=== PATIENT | female | born 1945 | race Caucasian/White ===

== ENCOUNTER → 2017-12-19 07:57 | Outpatient (CLI) | payer MEDICARE, OTHER, SELFPAY ==
--- NOTE | 2017-12-19 08:07 | XR_ITS ---
XR hand RT min 3V HISTORY: ITS.REASON: RT HAND PAIN ORDERING PHYSICIAN: Chau Durham MD PATIENT AGE: 72 years COMPARISON: None FINDINGS: The hand has an unremarkable appearance. No acute fracture or dislocation is evident. There is a fracture involving the distal aspect of the scaphoid with mild impaction and anterior displacement of the distal fracture fragment. Wrist films may better delineate. The fracture is transverse in nature. IMPRESSION: 1. Unremarkable right hand. 2. Mildly displaced and impacted fracture of the distal aspect of the scaphoid
== END ==
PROVIDERS: PCP Internal Medicine Adolescent Medicine; Visit Provider Internal Medicine Adolescent Medicine
DX: M79.641 Pain in right hand (principal)
CPT/HCPCS: 73130

== ENCOUNTER → 2017-12-24 08:33 | Outpatient (CLI) | payer MEDICARE, OTHER, SELFPAY ==
--- NOTE | 2017-12-24 08:37 | XR_ITS ---
XR wrist RT w scaphoid HISTORY ITS.REASON: right wrist pain ORDERING PHYSICIAN: Kuldeep Garcia MD PATIENT AGE: 72 years Comparison: 12/19/2017 FINDINGS: Mildly displaced fracture involves the distal aspect of the scaphoid. On the oblique view the distal aspect of the scaphoid is displaced anterior laterally by approximately 2 mm. There is mild impaction of the fracture fragments. The fracture has a transverse orientation. Chondrocalcinosis involves the triangular fibrocartilage. There is also mild prominence of the scapholunate space which may indicate ligamentous disruption. IMPRESSION: 1. Mildly displaced and slightly impacted fracture of the distal scaphoid. 2. Possible scapholunate ligament injury
== END ==
PROVIDERS: PCP Internal Medicine Adolescent Medicine; Visit Provider Orthopaedic Surgery
DX: M25.531 Pain in right wrist (principal)
CPT/HCPCS: 73110

== ENCOUNTER → 2018-01-27 08:35 | Outpatient (CLI) | payer MEDICARE, OTHER, SELFPAY ==
--- NOTE | 2018-01-27 08:38 | XR_ITS ---
XR wrist RT w scaphoid HISTORY follow-up scaphoid fracture ITS.REASON: scaphoid fracture ORDERING PHYSICIAN: Kuldeep Garcia MD PATIENT AGE: 72 years Comparison: 12/24/17 FINDINGS: Displaced fracture once again noted involving the distal aspect of the scaphoid. This is comminuted. The lateral fracture fragment is displaced laterally x 3 mm. Fracture fragments appear slightly more dense on today's exam. Developing avascular necrosis is a consideration. Continued follow-up recommended. Typically, avascular necrosis occurs in the proximal pole with scaphoid fractures. The scapholunate joint remains widened. There is chondrocalcinosis of the triangular fibrocartilage. IMPRESSION: 1. Comminuted scaphoid fracture once again noted with displacement of the distal fracture fragments not significant changed. Slight increased density of the distal fracture fragments of uncertain clinical significance. Cannot exclude developing avascular necrosis. 2. Widened scapholunate joint space as before
== END ==
PROVIDERS: PCP Internal Medicine Adolescent Medicine; Visit Provider Orthopaedic Surgery
DX: S62.009D Unspecified fracture of navicular [scaphoid] bone of unspecified wrist, subsequent encounter for fracture with routine healing (principal)
CPT/HCPCS: 73110

== ENCOUNTER → 2018-07-23 09:54 | Outpatient (CLI) | payer MEDICARE, OTHER, SELFPAY ==
--- NOTE | 2018-07-23 09:57 | XR_ITS ---
XR DEXA axial skeleton HISTORY: ITS.REASON: POST MENOPAUSAL ORDERING PHYSICIAN: Chau Durham MD PATIENT AGE: 73 years COMPARISON: None FINDINGS: The BMD measured at the Left femoral neck is 0.709 g/cm squared with a T score of -2.4. This is considered Osteopenic according to the World Health Organization criteria. Fracture risk is Moderate. Treatment is advised. IMPRESSION: Osteopenia with moderate fracture risk. Treatment is advised. Suggest follow-up exam July 2020
--- NOTE | 2018-07-23 09:57 | MM_ITS ---
MM Dig screening mamm BI w/CAD CAD Screening COMPARISON: Digital mammograms with CAD 02/18/2017 and 08/08/2015 INDICATION: There is no personal or family history of breast cancer TECHNIQUE: Standard CC and MLO images were obtained. R2 CAD reviewed. FINDINGS: The breasts are composed primarily of fat with minimal scattered fibroglandular densities in each breast. There is a stable asymmetric nodular density upper outer quadrant left breast and similar and stable smaller benign-appearing nodular density just deep to the nipple right breast. There is no suspicious lesion in either breast and there are no suspicious microcalcifications. There is a benign-appearing calcification left breast. IMPRESSION: Stable exam with no suspicious lesion seen BI-RADS Category: 2 Benign Finding(s) RECOMMENDED FOLLOW-UP: 1YR - 1 YEAR FOLLOW-UP (A letter has been sent to the patient regarding results of the study.)
== END ==
PROVIDERS: PCP Internal Medicine Adolescent Medicine; Visit Provider Internal Medicine Adolescent Medicine
DX: Z12.31 Encounter for screening mammogram for malignant neoplasm of breast (principal); Z13.820 Encounter for screening for osteoporosis; Z78.0 Asymptomatic menopausal state
CPT/HCPCS: 77067; 77080

== ENCOUNTER → 2018-09-03 10:36 | Outpatient (CLI) | payer MEDICARE, OTHER, SELFPAY ==
--- NOTE | 2018-09-03 10:46 | XR_ITS ---
XR chest 2V HISTORY: ITS.REASON: COUGH ORDERING PHYSICIAN: Kuldeep Izquierdo MD PATIENT AGE: 73 years COMPARISON: 01/16/2017 FINDINGS: The cardiomediastinal silhouette and pulmonary vascularity are within normal limits. Coronary artery calcifications are noted There is a 19 mm ill-defined nodular opacity in the left lower lobe similar to the previous exam. A calcified granuloma is also present in the left lower lobe and there are mild fibrotic changes in the left lung base laterally. No lobar consolidation or collapse is evident. No acute bony findings. IMPRESSION: No change with no acute finding No change left lower lobe nodules with atelectatic or from chronic changes left lung base
== END ==
PROVIDERS: PCP Internal Medicine Adolescent Medicine; Visit Provider Internal Medicine Adolescent Medicine
DX: R05 Cough (principal)
CPT/HCPCS: 71046

== ENCOUNTER → 2018-12-01 10:13 | Outpatient (CLI) | payer MEDICARE, OTHER, SELFPAY ==
[2018-12-01 10:34] LABS: Basophils # 0.1 K/mm3 (0-0.2); Basophils % 0.9 % (0.1-2.0); Eosinophils # 0.3 K/mm3 (0.0-0.4); Eosinophils % 4.2 % (0.1-12.0); Hematocrit 42.2 % (37.0-47.0); Lymphocytes # 5.7 K/mm3 (0.7-4.5); Lymphocytes % 93.3 % (10-50); Mean Corpuscular HGB Conc 30.9 g/dL (31.8-35.4); Mean Corpuscular Hemoglobin 31.2 pg (27.0-31.2); Mean Corpuscular Volume 101.1 fl (81-99); Mean Platelet Volume 8.4 fl (7.4-10.4); Monocytes # 0.1 K/mm3 (0.1-1.0); Platelet Count 243 K/mm3 (142-424); Red Blood Count 4.17 M/mm3 (4.20-5.40); Red Cell Distribution Width 13.7 % (11.5-17.5); White Blood Count 6.1 K/mm3 (4.8-10.8)
[2018-12-01 10:36] LABS: Neutrophils % 0.6 % (37.0-80.0)
[2018-12-01 10:38] LABS: MANUAL DIFFERENTIAL MANUAL DIFFERENTIAL (MANUAL DIFF)
[2018-12-01 10:54] LABS: Troponin I < 0.02 ng/ml (0.00-0.06)
[2018-12-01 11:30] LABS: Eosinophils % 3 % (0-3); Lymphocytes % 14 % (10-50); Monocytes % 2 % (2-9); Neutrophils % 79 % (42-76); Platelet Estimate Normal; RBC Morphology Normal; Total Cells Counted 100
[2018-12-01 11:44] LABS: Alanine Aminotransferase 21 U/L (12-78); Albumin Level 4.3 gm/dL (3.4-5.0); Alkaline Phosphatase 91 U/L (46-116); Anion Gap 13.3 mEq/L (5-15); Aspartate Amino Transferase 17 U/L (15-37); Bilirubin,Direct 0.1 mg/dL (0.0-0.2); Bilirubin,Indirect 0.7 mg/dL (0.0-0.9); Bilirubin,Total 0.8 mg/dL (0.2-1.0); Blood Urea Nitrogen 19 mg/dL (7-18); Calcium 9.2 mg/dL (8.5-10.1); Carbon Dioxide 29 mmol/L (21.0-32.0); Chloride 103 mmol/L (98-107); Creatinine,Serum 0.81 mg/dL (0.55-1.02); Estimated Glomerular Filt Rate 70 ml/min (>60); Free T4 (Free Thyroxine) 0.79 ng/dl (0.76-1.46); GFR (African American) 84 ML/MIN (>60); Potassium 4.3 mmoL/L (3.5-5.1); Sodium 141 mmol/L (136-145); Thyroid Stimulating Hormone 7.93 uIU/ml (0.358-3.740); Total Protein,Serum 7.6 gm/dL (6.4-8.2)
[2018-12-01 11:55] LABS: Glucose 111 mg/dL (74-106)
[2018-12-02 14:41] LABS: Folate 16.6 ng/mL (>3.0); Vitamin B12 792 pg/mL (232-1245)
[2018-12-03 12:50] LABS: Peripheral Smear Review Scanned Result
== END ==
PROVIDERS: Visit Provider Nurse Practitioner Family
DX: R06.00 Dyspnea, unspecified (principal); R07.9 Chest pain, unspecified; D64.9 Anemia, unspecified
CPT/HCPCS: 36415; 80048; 80076; 82607; 82746; 84439; 84443; 84484; 85007; 85025; 85060

== ENCOUNTER → 2018-12-08 10:33 | Outpatient (CLI) | payer MEDICARE, OTHER, SELFPAY ==
--- NOTE | 2018-12-08 10:34 | CA_ITS ---
PROCEDURE: 2-D M-mode and color Doppler study INDICATIONS FOR THE TEST: Chest pain+ COPD Heart Murmur Tobacco Smoking Palpitations Fatigue Syncope Edema Hypertension+Diabetes Mellitus Rheumatic Fever SOB MONSALVE+Obesity Hyperlipidemia Family History HD Additional History MVP,BRADYCARDIA PATIENT INFORMATION HEIGHT: 63 WEIGHT:143 GENDER: Female B/P:166/72 2-D/M-MODE INTERPRETATION: 2-D MEASUREMENTS OBSERVED VALUES IN CMS Right Ventricular Dimension (RVDd) 2.8 Interventricular Septum (Thickness)(IVsd) 1.0 Left Ventricular Internal Dimensions(LVIDd) 5.7 Left Ventricular Posterior Wall (Thickness)(LVPWd) 1.0 Aortic Root 2.2 Aortic Cusp Separation 1.8 Left Atrial Dimensions (LAD) 3.9 2D 1. Left Atrium is mildly enlarged, left ventricle is normal size, mild concentric left ventricular hypertrophy, visually estimated ejection fraction of 55% with no regional wall motion abnormality. 2. The right atrium and right ventricle are normal size and contractility. 3. The aortic valve is minimally thickened and calcified. 4. The mitral valve has prolapse of the posterior mitral leaflet. Leaflets are mildly myxomatous. 5. The tricuspid valve is grossly normal. 6. The pulmonic valve is poorly visualized. 7. No significant pericardial effusion noted. DOPPLER INTERROGATION: Doppler interrogation of the aortic, mitral and tricuspid valvular presence of mild aortic, there is mitral regurgitation present, it is difficult to quantify this is likely in severe range, a transesophageal echocardiogram is recommended for further evaluation. Grade 1 diastolic dysfunction seen with tissue Doppler evidence of raised left atrial pressure. CONCLUSION: 1. Mildly enlarged left atrium, normal left ventricular size, mild concentric left ventricular hypertrophy, visually estimated ejection fraction of 55% with no regional wall motion abnormality. Grade 1 diastolic dysfunction seen with tissue Doppler evidence of raised left atrial pressure. 2. 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 3. Mild aortic, and mild tricuspid regurgitation 4. No significant pericardial effusion noted.
--- NOTE | 2018-12-08 10:34 | NM_ITS ---
SPECT MYOCARDIAL PERFUSION SCAN, REST AND STRESS: EXERCISE STRESS: [facility] REVIEW QGS EF AND WALL MOTION EVALUATION: QPS - PERFUSION EVALUATION: HISTORY: Chest pain, SOB, HTN, Family history PROCEDURE: Rest imaging performed after administration of10.27 millicuries Tc MIBI. Dose administered at10:45 a.m., with imaging thereafter. Stress imaging was then performed following6 minutes 10 seconds of exercise stress. The patient achieved a heart [id number] with projected heart rate of127 . Resting BP149/81 with stress 166/80. At maximum exercise stress,30.8 millicuries Tc MIBI administered at12:55 p.m. with [id number] minutes thereafter. FINDINGS: Perfusion Evaluation: The single slice spect images as well as the [facility] bull's-eye data summary were reviewed. Wall Motion and Ejection Fraction Evaluation: Gated SPECT review and analysis used to evaluate these features. There is a 69 % left ventricular ejection fraction. There seems to be good wall motion Uniform myocardial activity at both stress and rest IMPRESSION: No scintigraphic evidence of Lexiscan-induced myocardial ischemia with normal ejection fraction and normal wall motion
--- NOTE | 2018-12-08 10:49 | HMH.ITSHM ---
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 []METOPROLOL AMLODIPINE LEVOTHYROXINE FLUTICASONE DULOXETINE BUSPIRONE
== END ==
PROVIDERS: PCP Internal Medicine Adolescent Medicine; Visit Provider Nurse Practitioner Family
DX: R06.00 Dyspnea, unspecified (principal); R07.9 Chest pain, unspecified; I10 Essential (primary) hypertension; I34.1 Nonrheumatic mitral (valve) prolapse
CPT/HCPCS: 78452; 93017; 93306; A9502

== ENCOUNTER → 2019-01-04 08:40 | Outpatient (CLI) | payer MEDICARE, OTHER, SELFPAY ==
[2019-01-04 11:17] LABS: Alanine Aminotransferase 21 U/L (12-78); Albumin Level 3.6 gm/dL (3.4-5.0); Alkaline Phosphatase 84 U/L (46-116); Aspartate Amino Transferase 17 U/L (15-37); Bilirubin,Direct 0.1 mg/dL (0.0-0.2); Bilirubin,Indirect 0.5 mg/dL (0.0-0.9); Bilirubin,Total 0.6 mg/dL (0.2-1.0); Cholesterol 167 mg/dL (140-200); HDL Cholesterol 83 mg/dL (29-89); LDL Cholesterol 72 mg/dL (0-130); Total Protein,Serum 6.5 gm/dL (6.4-8.2); Triglycerides 58 mg/dL (30-200); VLDL Cholesterol 12 mg/dL (0-40)
== END ==
PROVIDERS: Visit Provider Internal Medicine Cardiovascular Disease
DX: I10 Essential (primary) hypertension (principal); I25.10 Atherosclerotic heart disease of native coronary artery without angina pectoris; I34.0 Nonrheumatic mitral (valve) insufficiency; I34.1 Nonrheumatic mitral (valve) prolapse; K21.9 Gastro-esophageal reflux disease without esophagitis; R00.1 Bradycardia, unspecified; R06.09 Other forms of dyspnea
CPT/HCPCS: 36415; 80061; 80076

== ENCOUNTER → 2019-03-02 11:39 | Outpatient (CLI) | payer MEDICARE, OTHER, SELFPAY | PROVIDERS: PCP Internal Medicine Adolescent Medicine; Visit Provider Nurse Practitioner Family | DX: R55 Syncope and collapse (principal); I25.10 Atherosclerotic heart disease of native coronary artery without angina pectoris; R06.09 Other forms of dyspnea; I34.0 Nonrheumatic mitral (valve) insufficiency | CPT/HCPCS: 93225; 93226 ==

== ENCOUNTER → 2019-04-07 07:05 | Outpatient (CLI) | payer MEDICARE, OTHER, SELFPAY ==
[2019-04-07 14:15] LABS: Basophils % 0.6 % (0.1-2.0); Eosinophils # 0.2 K/mm3 (0.0-0.4); Eosinophils % 4.9 % (0.1-12.0); Hematocrit 37.2 % (37.0-47.0); Hemoglobin 11.8 g/dL (12.2-16.2); Lymphocytes # 3.9 K/mm3 (0.7-4.5); Lymphocytes % 90.8 % (10-50); Mean Corpuscular HGB Conc 31.6 g/dL (31.8-35.4); Mean Corpuscular Hemoglobin 33.3 pg (27.0-31.2); Mean Corpuscular Volume 105.4 fl (81-99); Mean Platelet Volume 9.5 fl (7.4-10.4); Monocytes # 0.1 K/mm3 (0.1-1.0); Monocytes % 3.3 % (1.7-9.3); Platelet Count 183 K/mm3 (142-424); Red Blood Count 3.53 M/mm3 (4.20-5.40); Red Cell Distribution Width 12.9 % (11.5-17.5); White Blood Count 4.3 K/mm3 (4.8-10.8)
[2019-04-07 14:19] LABS: Neutrophils % 0.5 % (37.0-80.0)
[2019-04-07 14:20] LABS: MANUAL DIFFERENTIAL MANUAL DIFFERENTIAL (MANUAL DIFF)
[2019-04-07 14:34] LABS: Alanine Aminotransferase 16 U/L (12-78); Albumin/Globulin Ratio 1.5 (1.1-1.8); Alkaline Phosphatase 81 U/L (46-116); Aspartate Amino Transferase 25 U/L (15-37); Bilirubin,Total 1.1 mg/dL (0.2-1.0); Blood Urea Nitrogen 14 mg/dL (7-18); Calcium 8.9 mg/dL (8.5-10.1); Carbon Dioxide 28 mmol/L (21.0-32.0); Chloride 103 mmol/L (98-107); Chol/HDL Ratio 1.6 (1-3.5); Cholesterol 160 mg/dL (140-200); Creatinine,Serum 0.79 mg/dL (0.55-1.02); Estimated Glomerular Filt Rate 72 ml/min (>60); GFR (African American) 87 ML/MIN (>60); Globulin 2.7 gm/dl (1.3-3.2); Glucose 85 mg/dL (74-106); HDL Cholesterol 103 mg/dL (29-89); LDL Cholesterol 47 mg/dL (0-130); Sodium 141 mmol/L (136-145); Thyroid Stimulating Hormone 6.35 uIU/ml (0.358-3.740); Total Protein,Serum 6.7 gm/dL (6.4-8.2); Triglycerides 48 mg/dL (30-200); VLDL Cholesterol 10 mg/dL (0-40)
[2019-04-07 16:36] LABS: Eosinophils % 2 % (0-3); Lymphocytes % 25 % (10-50); Monocytes % 5 % (2-9); Neutrophils % 62 % (42-76); Total Cells Counted 100
[2019-04-07 16:37] LABS: Platelet Estimate Normal; RBC Morphology Normal
[2019-04-09 06:22] LABS: Vitamin B12 >2000 pg/mL (232-1245); Vitamin D 25 Hydroxy 30.5 ng/mL (30.0-100.0)
== END ==
PROVIDERS: PCP Internal Medicine Adolescent Medicine; Visit Provider Internal Medicine Adolescent Medicine
DX: E53.8 Deficiency of other specified B group vitamins (principal); E78.5 Hyperlipidemia, unspecified; E03.9 Hypothyroidism, unspecified; M85.89 Other specified disorders of bone density and structure, multiple sites
CPT/HCPCS: 36415; 80053; 80061; 82607; 82652; 84443; 85007; 85025

== ENCOUNTER → 2019-05-17 10:50 | Outpatient (CLI) | payer MEDICARE, OTHER, SELFPAY ==
--- NOTE | 2019-05-17 10:57 | US_ITS ---
PROCEDURE: US THYROID CLINICAL INDICATION: THYROID NODULE Thyroid nodule seen on recent vascular study, longstanding thyroid disease COMPARISON: The FINDINGS: Right lobe: 3.8 x 1.3 x 1.2 cm. There is heterogeneous echogenicity. There is a 1 x 1.2 cm solid-appearing nodule which is well-circumscribed with increased echogenicity centrally. This is in the lower pole of the right lobe. This is wider than tall with smooth margins and no internal echogenic foci and is a TR 3 nodule and can be followed since it is less than 2.5 cm. Left lobe: 2.3 x 1.7 x 1 cm. Diffuse heterogeneous echogenicity with no discrete nodule. Isthmus: Unremarkable Additional findings: IMPRESSION: Solid-appearing nodule lower pole right lobe of the thyroid gland, TR 3 nodule mildly suspicious. Recommend six-month follow-up. Dictated by: Francisco Monaco MD 05/17/2019 15:59 Electronically signed by Francisco Monaco MD in [place] 05/17/2019 15:59
[2019-05-17 14:38] LABS: Free Thyroxine Index 2.8 ug/dL (5.93-13.13); T4 (Thyroxine) 6.9 ug/dl (4.7-13.3); Thyroid Stimulating Hormone 0.14 uIU/ml (0.358-3.740); Triiodothryronine (T3) Uptake 41 % (31-39)
[2019-05-18 12:59] LABS: Thyroid Peroxidase Antibodies 303 IU/mL (0-34)
== END ==
PROVIDERS: PCP Internal Medicine Adolescent Medicine; Visit Provider Internal Medicine Adolescent Medicine
DX: E04.1 Nontoxic single thyroid nodule (principal); E03.9 Hypothyroidism, unspecified
CPT/HCPCS: 36415; 76536; 84436; 84443; 84479; 86376

== ENCOUNTER → 2019-05-25 11:30 | Outpatient (POV) | payer MEDICARE, OTHER, SELFPAY ==
[2019-05-25 11:46] VITALS: BP 182/98; PULSE 85; RESP 18; O2SAT 99; BMI 24.7
[2019-05-25 14:26] LABS: Free T4 (Free Thyroxine) 0.87 ng/dl (0.76-1.46); Thyroid Stimulating Hormone 1.96 uIU/ml (0.358-3.740)
--- NOTE | 2019-05-25 15:50 | HMH.PMCON ---
Assessment and Plan (1) Sacroiliitis Current visit: Yes Status: Chronic Category: Medical Code(s): M46.1 - Sacroiliitis, not elsewhere classified - Assessment and plan all Dx Assessment and Plan for all problems:: We will schedule the patient for bilateral SI joint injections. I do believe it would be beneficial for her. Patient is instructed to call the office if she has any issues prior to her next appointment. Dr. Wade has reviewed this note and agrees with this plan of care. This note was dictated using voice recognition software and may contain errors or omissions HPI - Data of Consult Consult date: 05/25/19 Requesting Physician: Fabiola Swan APRN Primary Care Provider: Chau Durham MD - Consult Narrative Reason for consult: Chronic sacroiliitis History of present illness: Ms. Pitt is a 74 year old female who presents today for consultation. Patient was seen about 3-1/2 years ago and received SI joint injections. She is had relief from that significantly until this last few weeks. She rates her pain today a 6 out of 10. Patient is having pain in her low back radiating into her hip sometimes her groin area. Patient has tried anti-inflammatories with success. Patient is wanting bilateral SI joint injections today. I discussed with her that we would not be able to do those today. Patient is continuing a home stretching program. We also briefly discussed an SI joint belt I do believe that would be beneficial for her. CC: Fabiola Swan APRN [facility] History I have reviewed the patient's past medical history: Yes Medical History: Reports:: Atherosclerotic Heart Disease, Coronary Artery Disease, Depression, Gastroesophageal Reflux Disease(GERD), Hypertension Denies:: Diabetes Mellitus Type 1, Diabetes Mellitus Type 2, Internal Pacemaker, Seizures *Have you ever received a pneumonia vaccine?: Yes *Have you received a flu vaccine this season?: Yes Other Medical History: Reports: Hypothyroidism Other Surgeries: Yes: No Previous Surgery, Cardiac Catheterization, Cholecystectomy, , Hysterectomy-Total, Other (Back Sx). No: Pacemaker - *Social History Smoking Status: Never smoker Alcohol Intake: never Alcohol Intake Frequency:: a few times a month Substance Use Type: denies use *Occupational Status:: other Housing: house Household Members: none *Travel in the last 8 weeks: None - Psychiatric History Pschychiatric History:: Reports:: Depression Family Hx:: Coronary Artery Disease, Heart Attack Review of Systems - Review of Systems ROS General: no recent weight change, no fever, no sleep disturbances Respiratory: no cough, no shortness of air, no recurring pulmonary infections Cardiovascular/Peripheral Vascular: No chest pain, No palpitations, no edema, no shortness of breath. Gastrointestinal: no new onset incontinence, normal bowel movements reported Genitourinary: no new onset incontinence Musculoskeletal: SI joint pain Psychiatric: normal mood/ affect, Neurological: [denies new onset weakness in extremities], [denies new onset balance issues] Meds Home Medications Medication Instructions Recorded Confirmed Type amlodipine 5 mg tablet 5 mg PO DAILY #30 tab 12/01/18 05/06/19 Rx buspirone 10 mg tablet 10 mg PO BID 12/01/18 05/06/19 History duloxetine 30 mg capsule,delayed 30 mg PO DAILY 12/01/18 05/06/19 History release fluticasone 250 mcg-salmeterol 50 1 inh INHALATION BID 12/01/18 05/06/19 History mcg/dose blistr powdr for inhalation levothyroxine 112 mcg tablet 112 mcg PO DAILY 12/01/18 05/06/19 History metoprolol tartrate 50 mg tablet 50 mg PO BID 12/01/18 05/06/19 History aspirin 81 mg tablet,delayed 81 mg PO DAILY 12/31/18 05/06/19 History release atorvastatin 40 mg tablet 40 mg PO DAILY #90 tab 12/31/18 05/06/19 History isosorbide mononitrate ER 60 mg 90 mg PO DAILY #30 tab 05/06/19 05/06/19 Rx tablet,extended release 24 hr Allergies
[2019-05-26 08:07] LABS: Triiodothyronine (T3) Free 2.3 pg/mL (2.0-4.4)
== END ==
PROVIDERS: Internal Medicine Endocrinology, Diabetes & Metabolism; PCP Internal Medicine Adolescent Medicine; Visit Provider Clinical Nurse Specialist Family Health
DX: M46.1 Sacroiliitis, not elsewhere classified (principal); E03.8 Other specified hypothyroidism; E04.2 Nontoxic multinodular goiter; R94.6 Abnormal results of thyroid function studies
CPT/HCPCS: 36415; 84436; 84439; 84443; 84481; 99202

== ENCOUNTER → 2019-06-29 09:57 | Outpatient (POV) | payer MEDICARE, OTHER, SELFPAY ==
[2019-06-29 10:43] VITALS: BP 135/64; PULSE 61; RESP 18; O2SAT 99; BMI 24.4
--- NOTE | 2019-06-29 10:43 | P.CONS_ITS ---
[facility] Pain Management SOAP Note Subjective:: Patient is a very pleasant 74-year-old white female who presents today for follow-up after her SI joint injection. Patient rates her pain a 0 out of 10 stating she is doing extremely well. Patient would like to follow-up on an as- needed basis. ROS General: no recent weight change, no fever, no sleep disturbances Respiratory: no cough, no shortness of air, no recurring pulmonary infections Cardiovascular/Peripheral Vascular: No chest pain, No palpitations, no edema, no shortness of breath. Gastrointestinal: no new onset incontinence, normal bowel movements reported Genitourinary: no new onset incontinence Musculoskeletal: SI joint pain Psychiatric: normal mood/ affect Neurological: [denies new onset weakness in extremities], [denies new onset balance issues] Objective:: Physical Exam General: Alert and oriented x3, no acute distress, pleasant and cooperative, [on room air] Lungs: Resps E/U, Symmetrical chest expansion, Eyes: PERRL Musculoskeletal: Flexion and extension of lumbar spine somewhat guarded secondary to pain, deep tendon reflexes normal, strength in upper and lower extremities [5/5], slightly antalgic gait noted Neurological: speech clear, 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 Dr. Wade has reviewed this note and agrees with this plan of care. This note was dictated using voice recognition software and may contain errors or omissions [facility] History I have reviewed the patient's past medical history: Yes Medical History: Reports:: Atherosclerotic Heart Disease, Coronary Artery Disease, Depression, Gastroesophageal Reflux Disease(GERD), Hypertension Denies:: Cancer, Diabetes Mellitus Type 1, Diabetes Mellitus Type 2, Internal Pacemaker, MRSA, Seizures *Have you ever received a pneumonia vaccine?: Yes *Have you received a flu vaccine this season?: Yes Other Medical History: Reports: Hypothyroidism Other Surgeries: Yes: No Previous Surgery, Cardiac Catheterization, Cholecystectomy, , Hysterectomy-Total, Other (Back Sx). No: Pacemaker Amputation: No Fractures: No - *Social History Smoking Status: Never smoker Alcohol Intake: never Alcohol Intake Frequency:: a few times a month Substance Use Type: denies use *Occupational Status:: retired, other Housing: house Household Members: significant other, none *Travel in the last 8 weeks: None - Psychiatric History Pschychiatric History:: Reports:: Depression Family Hx:: Coronary Artery Disease, Heart Attack
== END ==
PROVIDERS: PCP Internal Medicine Adolescent Medicine; Visit Provider Clinical Nurse Specialist Family Health
DX: M46.1 Sacroiliitis, not elsewhere classified (principal)
CPT/HCPCS: 99212

== ENCOUNTER → 2019-06-29 10:51 | Outpatient (CLI) | payer MEDICARE, OTHER, SELFPAY ==
[2019-06-29 13:01] LABS: Anion Gap 15.5 mEq/L (5-15); Blood Urea Nitrogen 21 mg/dL (7-18); Calcium 9.2 mg/dL (8.5-10.1); Carbon Dioxide 30 mmol/L (21.0-32.0); Chloride 101 mmol/L (98-107); Creatinine,Serum 0.74 mg/dL (0.55-1.02); Estimated Glomerular Filt Rate 77 ml/min (>60); GFR (African American) 93 ML/MIN (>60); Glucose 99 mg/dL (74-106); Potassium 4.5 mmoL/L (3.5-5.1); Sodium 142 mmol/L (136-145)
== END ==
PROVIDERS: Visit Provider Internal Medicine Cardiovascular Disease
DX: I10 Essential (primary) hypertension (principal); I25.10 Atherosclerotic heart disease of native coronary artery without angina pectoris; I34.0 Nonrheumatic mitral (valve) insufficiency; I65.29 Occlusion and stenosis of unspecified carotid artery
CPT/HCPCS: 36415; 80048; 99212

== ENCOUNTER → 2019-08-17 10:28 | Outpatient (CLI) | payer MEDICARE, OTHER, SELFPAY ==
[2019-08-17 14:17] LABS: Thyroid Stimulating Hormone 0.03 uIU/ml (0.358-3.740)
[2019-08-19 16:58] LABS: Triiodothyronine (T3) Free 3.7 pg/mL (2.0-4.4)
== END ==
PROVIDERS: Visit Provider Internal Medicine Endocrinology, Diabetes & Metabolism
DX: E03.8 Other specified hypothyroidism (principal); E04.2 Nontoxic multinodular goiter; R94.6 Abnormal results of thyroid function studies
CPT/HCPCS: 36415; 84439; 84443; 84481

== ENCOUNTER → 2020-01-04 09:40 | Outpatient (CLI) | payer MEDICARE, OTHER, SELFPAY ==
[2020-01-04 11:09] LABS: Free T4 (Free Thyroxine) 0.92 ng/dl (0.78-2.19)
[2020-01-04 11:23] LABS: Thyroid Stimulating Hormone 0.08 uIU/mL (0.465-4.68)
[2020-01-05 14:22] LABS: T4 (Thyroxine) 6.2 ug/dl (5.53-11.0)
== END ==
PROVIDERS: Visit Provider Internal Medicine Endocrinology, Diabetes & Metabolism
DX: E03.8 Other specified hypothyroidism (principal); E04.2 Nontoxic multinodular goiter; R94.6 Abnormal results of thyroid function studies
CPT/HCPCS: 36415; 84436; 84439; 84443; 84481

== ENCOUNTER → 2020-01-27 11:02 | Outpatient (POV) | payer MEDICARE, OTHER, SELFPAY ==
[2020-01-27 11:27] VITALS: BP 119/69; PULSE 63; RESP 18; O2SAT 98; BMI 24.7
--- NOTE | 2020-01-27 11:36 | HMH.PAINSOAP ---
[facility] Pain Management SOAP Note Subjective:: Patient is a pleasant 74-year-old white female who presents today for follow-up. She is being treated for chronic sacroiliitis. Patient says that her last injection was in June 2019. She says prior to that injection, she had up to 2 years of relief with an injection given by Dr. JOSE RAMON Claros. Patient says that she has low back pain with radiation into bilateral buttocks and hips. She says that her pain is a 5 out of 10 today. She does take meloxicam that does give her some relief. Review of Systems General: No recent weight changes, no fever, no sleep disturbances Respiratory: No cough, no shortness of air, no recurring pulmonary infections Cardiovascular/peripheral vascular: No chest pain, no palpitations, no edema, no shortness of breath Gastrointestinal: No new onset incontinence, normal bowel movements reported Genitourinary: No new onset incontinence Musculoskeletal: Bilateral low back pain, bilateral buttock pain Psychiatric: Normal mood/affect Neurological: [Denies weakness in extremities], [denies balance issues] Objective:: Physical exam General: Alert and oriented x3, no acute distress, pleasant and cooperative, [on room air] Lungs: Respirations even and unlabored, symmetrical chest expansion Eyes: PERRL Musculoskeletal: Flexion and extension of lumbar spine somewhat guarded secondary to pain, deep tendon reflexes normal, strength in upper and lower extremities [5/5], [abnormal gait noted] positive SI compression test, positive distraction test, positive Rita's test Neurological: Speech clear, planning aide equal, no gross sensory deficit Assessment:: Sacroiliitis Plan:: We will schedule the patient for bilateral SI joint injections. She has gotten the injections in the past and is got 90% relief for up to 6 months to 2 years. Patient does seem to do well with the injections. She and I did discuss possible SI stabilization procedure today. She would like to proceed with the injections to see if she gets relief. We will follow-up with her after the injections to reassess her symptoms. The patient and I specifically discussed risk factors for COVID19. These risks include, but are not limited to age greater than 60, heart or lung disease, diabetes, immunosuppression, and travel. We also discussed NSAIDs may worsen COVID19 infection or symptoms. Patient should not use NSAIDs to treat COVID19 signs or symptoms. Patient was also informed that any type of corticosteroid of any form (oral or injection) will decrease the patient's immune system response and may increase the likelihood of COVID19 infection and symptoms. Given the risks and benefits of the injection, the patient would like to proceed. She has been instructed to contact the clinic if she has any concerns before her next appointment. Dr. Wade has reviewed this note and agrees with this plan of care. This note was dictated using voice recognition software and make contain errors or omissions. [facility] History I have reviewed the patient's past medical history: Yes Medical History: Reports:: Atherosclerotic Heart Disease, Carotid Stenosis, Coronary Artery Disease, Depression, Gastroesophageal Reflux Disease(GERD), Hyperlipidemia, Hypertension Denies:: Cancer, Diabetes Mellitus Type 1, Diabetes Mellitus Type 2, Internal Pacemaker, MRSA, Seizures *Have you ever received a pneumonia vaccine?: Yes *Have you received a flu vaccine this season?: Yes Other Medical History: Reports: Hypothyroidism Other Surgeries: Yes: No Previous Surgery, Cardiac Catheterization, Cholecystectomy, , Hysterectomy-Total, Other (Back Sx). No: Pacemaker Amputation: No Fractures: No - *Social History Smoking Status: Never smoker Alcohol Intake: never Alcohol Intake Frequency:: a few times a month Substance Use Type: denies use *Occupational Status:: other Housing: house Household Members: significant other, none *Travel in the last 8 we
== END ==
PROVIDERS: PCP Internal Medicine Adolescent Medicine; Visit Provider Clinical Nurse Specialist Family Health
DX: M46.1 Sacroiliitis, not elsewhere classified (principal)
CPT/HCPCS: 99212

== ENCOUNTER 2020-02-04 14:38 | Day surgery (SDC) | payer MEDICARE, OTHER, SELFPAY ==
[2020-02-04 15:03] VITALS: BP 145/78; PULSE 63; RESP 18; TEMP 36.7; O2SAT 99; BMI 24.7
--- NOTE | 2020-02-04 15:11 | HMH.PMPROC ---
- Procedure Date: 02/04/20 Time: 15:11 Anesthesiologist:: Leonid Wade MD Complications:: None Pre-procedure Diagnosis:: Sacroiliitis bilateral Post-procedure Diagnosis:: Same Indications for Procedure:: Patient is a pleasant 74-year-old white female who we are treating for chronic sacroiliitis. She is tender over both SI joints. She has a positive Rita's test bilaterally. She is positive SI joint compression test bilaterally. She is positive Aracelis test bilaterally. We will do bilateral SI joint injections today. She is gotten good relief from these injections in the past which significant relief for several months. Procedure Details:: B/L SI joint injection under fluoroscopy Informed consent was obtained and the risks and benefits of the procedure was explained to the patient. The patient was taken to the procedure room and placed prone on the procedure table. The patient was prepped using ChloraPrep. The skin and subcutaneous tissues overlying the SI joints were anesthetized using lidocaine. I placed a 22-gauge needle first in the left SI joint and second in the right SI joint. Needle placement was confirmed with dye. After this we injected 5 mL bupivacaine 0.25% and Depo-Medrol 40 mg into each SI joint. Patient tolerated the procedure well with no complication. Plan and Disposition:: We will follow-up with her in 2 weeks. Will reevaluate symptoms at that time.
[2020-02-04 15:18] VITALS: BP 125/88; PULSE 85; RESP 18
[2020-02-04 15:19] VITALS: BP 120/88; PULSE 88; RESP 18; O2SAT 98
[2020-02-04 15:30] VITALS: BP 155/80; PULSE 66; RESP 18; O2SAT 99
== END 2020-02-04 15:30 | disposition home or self-care (01) ==
LOC: SC.PAINP 14:39
PROVIDERS: PCP Internal Medicine Adolescent Medicine; Visit Provider Anesthesiology
DX: M46.1 Sacroiliitis, not elsewhere classified (principal); I10 Essential (primary) hypertension; E78.5 Hyperlipidemia, unspecified; J45.909 Unspecified asthma, uncomplicated; F41.9 Anxiety disorder, unspecified; E03.9 Hypothyroidism, unspecified; Z87.39 Personal history of other diseases of the musculoskeletal system and connective tissue; Z86.79 Personal history of other diseases of the circulatory system; K21.9 Gastro-esophageal reflux disease without esophagitis; I25.10 Atherosclerotic heart disease of native coronary artery without angina pectoris; Z88.0 Allergy status to penicillin; Z79.899 Other long term (current) drug therapy
CPT/HCPCS: 27096; G0260; J1030; Q9966

== ENCOUNTER → 2020-02-24 14:36 | Outpatient (POV) | payer MEDICARE, OTHER, SELFPAY ==
--- NOTE | 2020-02-24 15:06 | HMH.PAINSOAP ---
[facility] Pain Management SOAP Note Subjective:: Patient is a pleasant 74-year-old white female who presents today for follow-up after bilateral SI joint injections. She has been treated for sacroiliitis. Patient says that her pain is a 0 out of 10 today. She says she did get about 95% relief after her injections. She has had the injections in the past which also gave her relief. Patient says she is doing well overall and does not need any repeat injections at this time. Review of Systems General: No recent weight changes, no fever, no sleep disturbances Respiratory: No cough, no shortness of air, no recurring pulmonary infections Cardiovascular/peripheral vascular: No chest pain, no palpitations, no edema, no shortness of breath Gastrointestinal: No new onset incontinence, normal bowel movements reported Genitourinary: No new onset incontinence Musculoskeletal: Remittent low back pain with radiation into her low back and hip Psychiatric: Normal mood/affect Neurological: [Denies weakness in extremities], [denies balance issues] Objective:: Physical exam General: Alert and oriented x3, no acute distress, pleasant and cooperative, [on room air] Lungs: Respirations even and unlabored, symmetrical chest expansion Eyes: PERRL Musculoskeletal: Flexion and extension of lumbar spine somewhat guarded secondary to pain, deep tendon reflexes normal, strength in upper and lower extremities [5/5], [abnormal gait noted] positive Davenport's test, positive Rita's test, positive distraction test Neurological: Speech clear, quality control representative equal, no gross sensory deficit Assessment:: Sacroiliitis bilateral, low back pain Plan:: Overall the patient is doing well after her bilateral SI joint injections. We will plan to follow-up with the patient as needed. She has been instructed to contact the clinic if she has any concerns before her next appointment. The patient and I specifically discussed risk factors for COVID19. These risks include, but are not limited to age greater than 60, heart or lung disease, diabetes, immunosuppression, and travel. We also discussed NSAIDs may worsen COVID19 infection or symptoms. Patient should not use NSAIDs to treat COVID19 signs or symptoms. Patient was also informed that any type of corticosteroid of any form (oral or injection) will decrease the patient's immune system response and may increase the likelihood of COVID19 infection and symptoms[address] Dr. Wade has reviewed this note and agrees with this plan of care. This note was dictated using voice recognition software and make contain errors or omissions. [facility] History I have reviewed the patient's past medical history: Yes Medical History: Reports:: Atherosclerotic Heart Disease, Carotid Stenosis, Coronary Artery Disease, Depression, Gastroesophageal Reflux Disease(GERD), Hyperlipidemia, Hypertension Denies:: Cancer, Diabetes Mellitus Type 1, Diabetes Mellitus Type 2, Internal Pacemaker, MRSA, Seizures *Have you ever received a pneumonia vaccine?: No *Have you received a flu vaccine this season?: No Other Medical History: Reports: Hypothyroidism Other Surgeries: Yes: No Previous Surgery, Cardiac Catheterization, Cholecystectomy, , Hysterectomy-Total, Other (Back Sx). No: Pacemaker Amputation: No Fractures: No - *Social History Smoking Status: Never smoker Alcohol Intake: current Alcohol Intake Frequency:: holidays/special occasions only Substance Use Type: denies use *Occupational Status:: retired Housing: house Household Members: significant other, none *Travel in the last 8 weeks: None - Psychiatric History Pschychiatric History:: Reports:: Depression Family Hx:: Coronary Artery Disease, Heart Attack
[2020-02-24 15:12] VITALS: BP 124/78; PULSE 75; RESP 18; O2SAT 99; BMI 24.7
== END ==
PROVIDERS: PCP Internal Medicine Adolescent Medicine; Visit Provider Clinical Nurse Specialist Family Health
DX: M46.1 Sacroiliitis, not elsewhere classified (principal); M54.5 Low back pain
CPT/HCPCS: 99212

== ENCOUNTER → 2020-07-24 08:14 | Outpatient (CLI) | payer MEDICARE, OTHER, SELFPAY ==
--- NOTE | 2020-07-24 08:17 | XR_ITS ---
PROCEDURE: XR DEXA AXIAL SKELETON CLINICAL HISTORY: OSTEOPENIA COMPARISON: CR DEXAAX XR DEXA axial skeleton from 07/23/2018 FINDINGS: The right hip BMD is 0.603 with a T-score of -2.2. The left hip BMD is 0.586 with a T-score of -2.4. The lumbar spine BMD is 0.867 with a T-score of -1.6. Previously the lowest density was at the left femoral neck with a T-score -2.4. IMPRESSION: This patient is considered osteopenic according to the World Health Organization criteria. Bone density is between 10 and 25 percent below young normal. Fracture risk is moderate. Treatment is advised. Based on these results a follow-up exam is recommended in 2 year. Dictated by: Francisco Monaco MD 07/25/2020 10:26 Francisco Monaco MD in [place] 07/25/2020 10:26
--- NOTE | 2020-07-24 08:17 | MM_ITS ---
PROCEDURE: MM DIG SCREENING MAMM BI W/CAD Digital Breast Tomosynthesis Included CLINICAL INDICATION: SCREENING There is no personal or family history of breast cancer. COMPARISON: MG DMSB DIG MAMM-SCREEN SUYAPA from 08/08/2015 MG DMSB DIG MAMM-SCREEN SUYAPA W/CAD from 02/18/2017 MG SCBI MM Dig screening mamm BI w/CAD from 07/23/2018 TECHNIQUE: Standard CC and MLO images and 3D Tomosynthesis was obtained. R2 CAD reviewed. FINDINGS: The breasts are composed primarily of fat with minimal scattered fibroglandular densities in each breast. Again noted is the a metallic loop recorder lower inner quadrant left breast. There is a stable small benign-appearing nodular density in each breast. There is no new or suspicious lesion in either breast and no suspicious microcalcifications. IMPRESSION: Fatty type breast parenchyma with no suspicious lesions seen BI-RAD Category: 2 Benign Finding(s) FOLLOW-UP: 1YR 1 Year Follow-up (A letter has been sent to the patient regarding results of the study.) Dictated by: Dr. Sean Heart MD 07/28/2020 16:12 Dr. Sean Heart MD in [place] 07/28/2020 16:12
== END ==
PROVIDERS: PCP Internal Medicine; Visit Provider Internal Medicine Adolescent Medicine
DX: Z12.31 Encounter for screening mammogram for malignant neoplasm of breast (principal); Z13.820 Encounter for screening for osteoporosis; M85.89 Other specified disorders of bone density and structure, multiple sites
CPT/HCPCS: 77063; 77067; 77080

== ENCOUNTER → 2020-09-28 14:38 | Outpatient (CLI) | payer MEDICARE, OTHER, SELFPAY ==
--- NOTE | 2020-09-28 | CA_ITS ---
APPROVED REPORT EXAM: Comprehensive 2D, Doppler, and color-flow Echocardiogram [employer] Supervisor: Rachana Hazel, RCS, RVS Ht: 5 ft 3 in Wt: 146lbs BSA: 1.69 HR: 56 bpm BP: 111/66 mmHg Rhythm: Bradycardia Indications: MVP, SOA, CAD, MURMUR 2D Dimensions IVSd 1.03 cm F: 0.6-1.0 LVEF (Visual) 61.70 % PWd 1.09 cm F: 0.6 - 1.0 LA Volume 63.10 mL LVDd 4.26 cm F: 3.9 - 5.3 LA Volume Index [id number] mL/m2 (M/F) 16-34 LVDs 2.86 cm F: 2.2 - 3.5 LVOT 1.88 cm (M/F) 1.5-2.5 M-Mode Dimensions LA Diam 3.90 cm (1.9-4.0) LVDd 5.35 cm (3.5-5.7) Ao Diam 3.04 cm (2.0-3.7) LVDs 3.23 cm (3.5-5.7) EF (Teich) 69.70% EPSs 0.97 cm FS 39.60% EDV (Teich) 138.30 mL TAPSE 1.74 (<1.7) ESV (Teich) 41.90 mL LV Diastology E Decel Time 240.00 (160-240 msec) E/A Ratio 1.08 MED E' 9.80 (< 7 cm/sec) MED A' 11.00 cm/s E'/MED E' Ratio 8.50 (>14) LAT E' 7.60 (<10 cm/sec) LAT A' 9.70 cm/s E/LAT E' Ratio 10.96 (>14) Pulm Vein s 52.00 cm/sec Ar-A Duration 140.00 msec Aortic Valve LVOT Max 144.00 (70-110 cm/s) LVOT VTI 32.08 cm AoV Peak Brian. 169.00 (50-130 cm/s) AI PHT 639.00 ms AO Peak GR. 11.40 mmHg AO Mean GR. 5.30 (<5 mmHg) AO VTI 35.01 (18-25 cm) MARYELLEN (VTI) 2.54 (2.5-4.5 cm2) Mitral Valve MV E Max Brian. 83.00 (40-130 cm/s) MV A Velocity 77.00 (40-130 cm/s) E/A Ratio 1.08 MV Decel. Time 240.00 (160-240 ms) MV Mean Gr. 1.30 (<2mmHg) MV PHT 70.00 ms Pulmonary Valve PV Peak Velocity 84.00 (50-150 cm/s) NY End VMAX 213.00 cm/s Tricuspid Valve TR P. Velocity 211.00 cm/s RAP Estimate 10.00 mmHg RVSP 27.70 mmHg Left Ventricle Technically difficult study because of the patient factors and poor acoustic windows. Left atrium is mildly enlarged, left ventricle is normal size, mild concentric left ventricular hypertrophy, visually estimated ejection fraction 55% with no regional wall motion abnormality, diastolic parameters are inconclusive. Right Ventricle Right atrium and right ventricle are normal size and contractility. Aortic Valve Aortic valve is minimally thickened and calcified without aortic stenosis, there is mild aortic insufficiency. Mitral Valve Mitral valve leaflets are minimally thickened, there is mild focal prolapse of the posterior mitral leaflet, there is no mitral stenosis, there is mild mitral regurgitation. Tricuspid Valve Tricuspid valve grossly normal, there is mild tricuspid regurgitation, tricuspid regurgitation jet velocity is inadequate for calculation of the right ventricular systolic pressure. Pulmonic Valve Pulmonic valve is poorly visualized. Great Vessels Aortic root is normal size. Pericardium No significant pericardial effusion noted. Conclusion 1. Mildly enlarged left atrium, normal left ventricular size, mild concentric left ventricular hypertrophy, visually estimated ejection fraction 55% with no regional wall motion abnormality, diastolic parameters are inconclusive. 2. Thickened and calcified aortic valve without aortic stenosis, there is moderate insufficiency. 3. Mild focal prolapse of the posterior mitral leaflet associated with mild mitral regurgitation. 4. No significant pericardial effusion noted. Electronically signed by : Anthony Moscoso, 09/28/2020 16:46:32
== END ==
PROVIDERS: PCP Internal Medicine Adolescent Medicine; Visit Provider Physician Assistant
DX: R06.02 Shortness of breath (principal); I34.1 Nonrheumatic mitral (valve) prolapse
CPT/HCPCS: 93306

== ENCOUNTER 2020-10-22 12:18 | Observation (INO) | payer MEDICARE, OTHER, SELFPAY ==
[2020-10-22] VITALS (12 sets, daily range): BP systolic 123–153; BP diastolic 67–95; PULSE 56–70; RESP 11–21; TEMP 36.7–36.8; O2SAT 97–100; BMI 24.4
--- NOTE | 2020-10-22 12:18 | ECG_ITS ---
APPROVED REPORT Exam: Resting ECG HR:56 bpm ECG Measurements Heart Rate 56 AXES MI 166 P 56 QRSd 88 QRS 51 QT 472 T 59 QTc 455 Conclusion Sinus bradycardia Otherwise normal ECG Electronically signed by : Chau Durham, 10/22/2020 21:07:16
--- NOTE | 2020-10-22 12:29 | XR_ITS ---
PROCEDURE: XR CHEST 2V CLINICAL HISTORY: syncope COMPARISON: CT CHW CT CHEST W/ CONTRAST from 01/03/2014 CR CXR CHEST(2 VIEWS-NOT PORTABLE) from 01/16/2017 CR CXR2V XR chest 2V from 09/03/2018 CR XR CHEST PORTABLE from 02/24/2019 FINDINGS: The cardiomediastinal silhouette and pulmonary vascularity are within normal limits. There is a loop recorder device present along precordial region on the left. Calcified granuloma noted in the left lower lung zone. No acute bony abnormalities. IMPRESSION: No acute findings. Dictated by: Francisco Monaco MD 10/22/2020 13:17 Francisco Monaco MD in [place] 10/22/2020 13:17
--- NOTE | 2020-10-22 12:30 | XR_ITS ---
PROCEDURE: XR PELVIS 1-2V CLINICAL INDICATION: fall Pain COMPARISON: CR PELAP PELVIS AP ONLY from 11/21/2014 TECHNIQUE: XR Pelvis AP View FINDINGS: No fracture or dislocation is evident. Mild osteoarthritic changes are present involving both hips. No lytic or blastic change. IMPRESSION: No acute findings. Dictated by: Francisco Monaco MD 10/23/2020 05:21 Francisco Monaco MD in [place] 10/23/2020 05:21
--- NOTE | 2020-10-22 12:32 | HMH.EDGENADL ---
ED Disposition Clinical Impression: Syncope and collapse, Pulmonary nodule 1 cm or greater in diameter Dyspnea Qualifiers: Dyspnea type: shortness of breath Qualified Code(s): R06.02 - Shortness of breath Disposition: Admitted as Observation Condition on Discharge: Fair Instructions: DI for Syncope in Adults (Fainting), DI for Syncope in Children (Fainting) Referrals: Chau Durham MD [Primary Care Provider] - - Critical Care Critical Care Time: No Attestation: On 10/22/20, the high probability of a clinically significant, sudden or life threatening deterioration of the following system(s) required my full and direct attention, intervention and personal management. The time I documented below is in addition to time spent performing reported procedures but includes the following listed in this critical care notation. Medical Decision Making - Medical Records Medical records reviewed: Yes: I reviewed the patient's medical records. MR Arevalo: Seen in this emergency department on 02/24/19 for syncope. Subsequently had Holter monitor, cardiac cath, loop recorder placed, RAMÍREZ. See results of heart cath and RAMÍREZ below. - Ulisses Inquiry Pt receiving controlled substance: No Vital Signs: 10/22/20 12:18 10/22/20 12:34 10/22/20 12:45 Temperature 98.1 F Temperature Source Oral Pulse Rate 57 L Pulse Rate [Left Radial] 59 L Pulse Rate [Orthostatic Lying] 59 L Pulse Rate [Orthostatic Sitting] 62 Pulse Rate [Orthostatic Standing] 65 Respiratory Rate 17 11 L Blood Pressure 123/68 Blood Pressure [Orthostatic Lying] 137/83 Blood Pressure [Orthostatic Sitting] 142/81 H Blood Pressure [Orthostatic Standing] 136/80 Blood Pressure [Right Arm] 144/67 H Blood Pressure Mean [Right Arm] 92 Blood Pressure Source [Right Arm] Automatic Cuff Blood Pressure Position [Right Arm] Sitting 02 Sat by Pulse Oximetry 100 100 Oxygen Delivery Method Room Air - Lab Data Lab Results 10/22/20 12:40: WBC 5.0, RBC 3.37 L, Hgb 11.2 L, Hct 34.5 L, MCV 102.4 H, MCH 33.4 H, MCHC 32.6, RDW 12.3, Plt Count 232, MPV 8.5, Neut % (Auto) 1.0 L, Lymph % (Auto) 90.0 H, Frederick % (Auto) 3.9, Eos % (Auto) 4.6, Baso % (Auto) 0.5, Neut # (Auto) 0.1 L*, Lymph # (Auto) 4.5, Frederick # (Auto) 0.2, Eos # (Auto) 0.2, Baso # (Auto) 0.0, Total Counted 100, Neutrophils % (Manual) 70, Lymphocytes % (Manual) 22, Monocytes % (Manual) 3, Eosinophils % (Manual) 5 H, Differential Comment , Platelet Estimate Normal, Anisocytosis 1+, Macrocytosis 1+ 10/22/20 12:40: Sodium 136, Potassium 4.4, Chloride 106, Carbon Dioxide 20 L, Anion Gap 14.4, BUN 27 H, Creatinine 1.00, Estimated Creat Clear 50, Estimated GFR 54 L, Est GFR ( Amer) 66, Glucose 116 H, Calcium 9.7, Total Bilirubin 0.8, AST 26, ALT 13, Alkaline Phosphatase 67, Troponin I < 0.01, Total Protein 6.8, Albumin 4.3, Globulin 2.5, Albumin/Globulin Ratio 1.7 10/22/20 12:40: D-Dimer 0.71 H Result diagrams: 10/22/20 12:40 10/22/20 12:40 Orders (Tests/Meds): ED MEDICATIONS Discontinued Medications Generic Name Dose Route Start Last Admin Trade Name Aaronq PRN Reason Stop Dose Admin Iopamidol 70 ml 10/22/20 14:40 10/22/20 14:41 Iopamidol-370 (76%);100ml Bottle IV 10/22/20 14:41 70 ml ONCE ONE Administration Sodium Chloride 40 ml 10/22/20 14:40 10/22/20 14:41 0.9% Sodium Chloride 20ml Vial IV 10/22/20 14:41 40 ml ONCE ONE Administration Sodium Chloride 10 ml 10/22/20 14:40 10/22/20 14:41 Sodium Chloride 0.9% 10ml Syr (Rad Only) IV 10/22/20 14:41 10 ml ONCE ONE Administration ORDERS Category Date Time Status CTA Chest [CT angio chest] Stat Cat Scan 10/22/20 13:51 Taken XR pelvis 1-2V Stat Exams 10/22/20 12:30 Taken Full Resp Panel w/COVID ([facility]) Routine Lab 10/22/20 15:02 Ordered Troponin I Q3H Lab 10/22/20 15:30 Ordered Troponin I Q3H Lab 10/22/20 18:30 Ordered - Radiology Data #1 Image(s): Chest Image Reviewed: Yes I re
[2020-10-22 12:56] LABS: Basophils % 0.5 % (0.1-2.0); Eosinophils # 0.2 K/mm3 (0.0-0.4); Eosinophils % 4.6 % (0.1-12.0); Hematocrit 34.5 % (37.0-47.0); Hemoglobin 11.2 g/dL (12.2-16.2); Lymphocytes # 4.5 K/mm3 (0.7-4.5); Mean Corpuscular HGB Conc 32.6 g/dL (31.8-35.4); Mean Corpuscular Hemoglobin 33.4 pg (27.0-31.2); Mean Corpuscular Volume 102.4 fl (81-99); Mean Platelet Volume 8.5 fl (7.4-10.4); Monocytes # 0.2 K/mm3 (0.1-1.0); Monocytes % 3.9 % (1.7-9.3); Neutrophils # 0.1 K/mm3 (1.8-7.8); Platelet Count 232 K/mm3 (142-424); Red Blood Count 3.37 M/mm3 (4.20-5.40); Red Cell Distribution Width 12.3 % (11.5-17.5)
[2020-10-22 12:58] LABS: Alanine Aminotransferase 13 U/L (12-78); Albumin Level 4.3 g/dl (3.5-5.0); Albumin/Globulin Ratio 1.7 (1.1-1.8); Alkaline Phosphatase 67 U/L (38-126); Anion Gap 14.4 mEq/L (5-15); Aspartate Amino Transferase 26 U/L (14-36); Bilirubin,Total 0.8 mg/dl (0.2-1.3); Blood Urea Nitrogen 27 mg/dl (7-17); Calcium 9.7 mg/dl (8.4-10.2); Carbon Dioxide 20 mmol/L (22.0-30.0); Chloride 106 mmol/L (98-107); Creatinine Clearance Estimated 50 mL/min (50-200); Estimated Glomerular Filt Rate 54 ml/min (>60); GFR (African American) 66 ML/MIN (>60); Globulin 2.5 g/dL (1.3-3.2); Glucose 116 mg/dl (74-100); MANUAL DIFFERENTIAL MANUAL DIFFERENTIAL (MANUAL DIFF); Potassium 4.4 mmoL/L (3.5-5.1); Sodium 136 mmol/L (136-145); Total Protein,Serum 6.8 g/dl (6.3-8.2)
[2020-10-22 13:07] LABS: Anisocytosis 1+; Eosinophils % 5 % (0-3); Lymphocytes % 22 % (10-50); Macrocytosis 1+; Monocytes % 3 % (2-9); Neutrophils % 70 % (42-76); Platelet Estimate Normal; Total Cells Counted 100
[2020-10-22 13:20] LABS: Troponin I < 0.01 ng/ml (0.00-0.034)
[2020-10-22 13:43] LABS: D-Dimer 0.71 ug/mL (0.0-0.5)
--- NOTE | 2020-10-22 13:51 | CT_ITS ---
PROCEDURE: CT ANGIO CHEST CLINCIAL INDICATION: syncope, soa, elev d-dimer Shortness of air, elevated D-dimer COMPARISON: CT CHW CT CHEST W/ CONTRAST from 01/03/2014 TECHNIQUE: IV Contrast: 70ML Isovue 370 Axial images obtained with sagittal and coronal reformats. All CT scans at the facility use one or more dose reduction, viz: automated exposure control, ma/kV adjustment per patient size (including targeted exams where dose is matched to indication, i.e. head), or iterative reconstruction technique. FINDINGS: HEART AND MEDIASTINAL STRUCTURES: No evidence of pulmonary embolus, aortic aneurysm, or aortic dissection. LUNGS AND PLEURAL SPACES: A 2 cm nodule is present in the left lower lobe medially posterior to the left ventricle. The internal density is around 18 Hounsfield units. This may be very slightly larger compared to the previous study of 01/03/2014. There are some atelectatic changes in the left lower lobe anterior and inferior to this lesion. The atelectatic changes have developed since the previous exam. No other significant abnormalities are evident. There is calcified granuloma in the left lower lobe with some minimal atelectatic change adjacent to the granuloma. BONY STRUCTURES: No acute bony abnormalities apparent. UPPER ABDOMEN: Unremarkable. ADDITIONAL FINDINGS: No other significant abnormalities. IMPRESSION: 1. No evidence of pulmonary embolus. 2. 2 cm indeterminate left lower lobe nodule very slightly larger compared to the previous exam nearly 7 years before. There are some atelectatic changes distal to this region. The overall stability would suggest a probably benign process. The slight interval increase in size however warrants follow-up. This would NOT be amenable to percutaneous CT directed biopsy. PET CT may provide further evaluation. If this is not performed then, would recommend a [address] follow-up with contrast Dictated by: Francisco Monaco MD 10/23/2020 10:05 Francisco Monaco MD in [place] 10/23/2020 10:05
[2020-10-22 15:51] LABS: Adenovirus,PCR Not Detected (NotDetected); Bordetella Pertussis Not Detected (NotDetected); Chlamydophila Pneumoniae, PCR Not Detected (NotDetected); Coronavirus 19, PCR Not Detected (NotDetected); Coronavirus 229E Not Detected (NotDetected); Coronavirus NL63 Not Detected (NotDetected); Coronavirus OC43 Not Detected (NotDetected); Coronovirus HKU1,PCR Not Detected (NotDetected); Human Metapneumovirus Not Detected (NotDetected); Influenza A, PCR Not Detected (NotDetected); Influenza AH1, 2009 Not Detected (NotDetected); Influenza AH1, PCR Not Detected (NotDetected); Influenza AH3,PCR Not Detected (NotDetected); Influenza B, PCR Not Detected (NotDetected); Mycoplasma Pneumoniae, PCR Not Detected (NotDetected); Parainfluenza 1, PCR Not Detected (NotDetected); Parainfluenza 2, PCR Not Detected (NotDetected); Parainfluenza 3, PCR Not Detected (NotDetected); Parainfluenza 4, PCR Not Detected (NotDetected); Respiratory Syncytial Virus Not Detected (NotDetected); Rhinovirus/Enterovirus Not Detected (NotDetected)
[2020-10-22 16:31] LABS: Troponin I < 0.01 ng/ml (0.00-0.034)
--- NOTE | 2020-10-22 16:57 | PC.NURSE ---
SUPPER TRAY ORDERED
--- NOTE | 2020-10-22 18:04 | PC.NURSE ---
Report given to Lisa
--- NOTE | 2020-10-22 18:15 | PC.NURSE ---
Pt arrived to the floor at this time.
[2020-10-22 19:27] LABS: Troponin I < 0.01 ng/ml (0.00-0.034)
[2020-10-23] VITALS: BP 138/67; PULSE 60; RESP 16; TEMP 36.6; O2SAT 99
--- NOTE | 2020-10-23 03:39 | PC.NURSE ---
No c/o n/v/d, dizziness or soa. Pt. main complaint is of h/a; tx with tylenol x2, mild effectiveness reported. Pt. resting in bed with eyes closed at this time.
[2020-10-23 04:00] VITALS: BP 121/66; PULSE 50; PULSE 54; RESP 16; TEMP 36.8; O2SAT 99; BMI 24.6
--- NOTE | 2020-10-23 07:21 | HMH.PHAVTE ---
[facility] Pharmacy VTE Monitoring - Patient Demographics Admission date: 10/22/20 Report Date: 10/23/20 Time: 07:21 Allergies/Adverse Reactions: Patient Allergies Penicillins [PENICILLINS] Allergy (Unknown, Verified 09/21/20 13:57) I-RASH Height: 1.6 m Weight: 63.049 kg Patient Problems: Current Active Problems Syncope and collapse (Acute) Pulmonary nodule 1 cm or greater in diameter (Acute) Dyspnea (Acute) - VTE Risk Labs: VTE Related Lab Results Hgb 11.2 g/dL (12.2-16.2) L 10/22/20 12:40 Hct 34.5 % (37.0-47.0) L 10/22/20 12:40 Plt Count 232 K/mm3 (142-424) 10/22/20 12:40 BUN 27 mg/dl (7-17) H 10/22/20 12:40 Creatinine 1.00 mg/dl (0.52-1.04) 10/22/20 12:40 Estimated Creat Clear 50 mL/min (50-200) 10/22/20 12:40 VTE Score: 2 - Prophylaxis VTE Prophylaxis Ordered?: Yes Types of VTE Prophylaxis: TEDS Knee High Location of Applied Device: Bilateral Lower Extremeties
[2020-10-23 08:00] VITALS: BP 143/71; PULSE 60; RESP 17; TEMP 36.8; O2SAT 100
--- NOTE | 2020-10-23 08:19 | HMH.HP ---
*Admission Date: 10/22/20 *Chief complaint: Syncope *History of present illness: 75-year-old white female with history of arrhythmia who in fact has an implanted loop recorder in with multiple episodes of syncope and possible bradycardia was at [facility] services yesterday morning and afterwards on her way out became very hot and somewhat diaphoretic and had a syncopal episode. A nurse at the [facility] service took her pulse rate and reported that it was between 30 and 40. She had a couple episodes of this over the weekend, once when she put on a very warm sweater, and another one after she got up from a lunch gathering. These resolved spontaneously. She presented to the emergency department where she was admitted overnight for further evaluation, telemetry monitoring and cardiology evaluation. [facility] History I have reviewed the patient's past medical history: Yes Medical History: Reports:: Arrhythmia, Atherosclerotic Heart Disease, Carotid Stenosis, Coronary Artery Disease, Depression, Gastroesophageal Reflux Disease(GERD), Hyperlipidemia, Hypertension Denies:: Cancer, Diabetes Mellitus Type 1, Diabetes Mellitus Type 2, Internal Pacemaker, MRSA, Seizures *Have you ever received a pneumonia vaccine?: Yes *Have you received a flu vaccine this season?: Yes Other Medical History: Reports: Cataracts, Hypothyroidism, Sinus Problems Laterality Cases: Bilateral: Cataract Other Surgeries: Yes: No Previous Surgery, Cardiac Catheterization, Cholecystectomy, , Hysterectomy-Total, Other (Back Sx). No: Pacemaker Amputation: No Fractures: No - *Social History Last grade of school completed: Advanced degree Smoking Status: Never smoker Alcohol Intake: current Alcohol Intake Frequency:: holidays/special occasions only Substance Use Type: denies use *Occupational Status:: retired Housing: house Household Members: significant other, none *Travel in the last 8 weeks: None - Psychiatric History Pschychiatric History:: Reports:: Depression Family Hx:: Asthma, Coronary Artery Disease, Heart Attack, Hypertension Review of Systems - Review of Systems Review of systems:: pertinent systems reviewed and negative unless documented below - *Neurologic Reports fainting, Denies headache(s) Meds Home Medications Medication Instructions Recorded Confirmed Type buspirone 10 mg tablet 10 mg PO TID 12/01/18 10/23/20 History fluticasone 250 mcg-salmeterol 50 1 inh INHALATION BID 12/01/18 10/22/20 History mcg/dose blistr powdr for inhalation metoprolol tartrate 50 mg tablet 50 mg PO BID 12/01/18 10/22/20 History losartan 100 1 tab PO DAILY #30 tab 06/09/20 10/22/20 Rx mg-hydrochlorothiazide 12.5 mg tablet isosorbide mononitrate 60 mg 90 mg PO DAILY #45 tab 08/23/20 10/22/20 Rx tablet,extended release 24 hr Levothyroxine Sodium 1 tab PO DAILY 10/23/20 10/23/20 History [Levothyroxine 137mcg (0.137mg) Tab] Allergies Allergy/AdvReac Type Severity Reaction Status Date / Time Penicillins [PENICILLINS] Allergy Unknown I-RASH Verified 09/21/20 13:57 Exam Vital signs and Labs for Last 24 Hours: Temp Pulse Resp BP Pulse Ox 98.2 F 60 17 143/71 H 100 10/23/20 08:00 10/23/20 08:00 10/23/20 08:00 10/23/20 08:00 10/23/20 08:00 Laboratory Results - last 24 hr 10/22/20 12:40: WBC 5.0, RBC 3.37 L, Hgb 11.2 L, Hct 34.5 L, MCV 102.4 H, MCH 33.4 H, MCHC 32.6, RDW 12.3, Plt Count 232, MPV 8.5, Neut % (Auto) 1.0 L, Lymph % (Auto) 90.0 H, Sherman % (Auto) 3.9, Eos % (Auto) 4.6, Baso % (Auto) 0.5, Neut # (Auto) 0.1 L*, Lymph # (Auto) 4.5, Sherman # (Auto) 0.2, Eos # (Auto) 0.2, Baso # (Auto) 0.0, Total Counted 100, Neutrophils % (Manual) 70, Lymphocytes % (Manual) 22, Monocytes % (Manual) 3, Eosinophils % (Manual) 5 H, Differential Comment , Platelet Estimate Normal, Anisocytosis 1+, Macrocytosis 1+ 10/22/20 12:40: Sodium 136, Potassium 4.4, Chloride 106, Carbon Dioxide 20 L, Anion Gap 14.4, BUN 27 H, Creatinine 1.00, Estimat
--- NOTE | 2020-10-23 09:22 | HMH.PHAINT ---
MEDICATION RECONCILIATION COMPLETED USING EXTERNAL FILL HISTORY
--- NOTE | 2020-10-23 09:41 | HMH.CNCARD ---
History of Present Illness Consult date: 10/23/20 Requesting physician: Chau Durham Chief complaint: syncope History of present illness: This is a 75-year-old white female who was admitted to the hospital after syncopal episode yesterday at [facility]. The patient states that she was sitting in [facility] and she became very hot and diaphoretic. She states that she became lightheaded and felt as if she were going to pass out and then she did have a syncopal episode. She does not know how long she was out. A nurse at the [facility] she goes to check her pulse and reported that it was somewhere between 30 and 40 bpm. The patient denied any chest pain or pressure. She denied any shortness of breath. She denied any fever, chills, nausea, vomiting, diarrhea, PND or orthopnea. The patient states that she kind of felt like this on Friday of last week as well. She states that she got really diaphoretic and felt as if she were going to pass out. She was supposed to drive to [place] but just decided to drive home instead because she felt so bad. She states prior to going to [facility] yesterday she had put on a sweater and felt like she had just got really warm and diaphoretic so she took the sweater off which did improve her symptoms but then an hour later she had the same symptoms recur with syncope. The patient came into the emergency department because of her syncopal episode and was admitted overnight. Her [employer] loop recorder was downloaded today. There are no episodes of bradycardia noted on her loop recorder. However her lower heart rate on the loop recorder was set to 30 bpm. This has been increased to 50 bpm. [facility] History I have reviewed the patient's past medical history: Yes Medical History: Reports:: Atherosclerotic Heart Disease, Carotid Stenosis, Coronary Artery Disease, Depression, Gastroesophageal Reflux Disease(GERD), Hyperlipidemia, Hypertension Denies:: Cancer, Diabetes Mellitus Type 1, Diabetes Mellitus Type 2, Internal Pacemaker, MRSA, Seizures *Have you ever received a pneumonia vaccine?: Yes *Have you received a flu vaccine this season?: Yes Other Medical History: Reports: Cataracts, Hypothyroidism, Sinus Problems Laterality Cases: Bilateral: Cataract Other Surgeries: Yes: No Previous Surgery, Cardiac Catheterization, Cholecystectomy, , Hysterectomy-Total, Other (Back Sx). No: Pacemaker Amputation: No Fractures: No - *Social History Last grade of school completed: Advanced degree Smoking Status: Never smoker Alcohol Intake: current Alcohol Intake Frequency:: holidays/special occasions only Substance Use Type: denies use *Occupational Status:: retired Housing: house Household Members: significant other, none *Travel in the last 8 weeks: None - Psychiatric History Pschychiatric History:: Reports:: Depression Family Hx:: Asthma, Coronary Artery Disease, Heart Attack, Hypertension Meds Home Medications Medication Instructions Recorded Confirmed Type buspirone 10 mg tablet 10 mg PO TID 12/01/18 10/23/20 History fluticasone 250 mcg-salmeterol 50 1 inh INHALATION BID 12/01/18 10/22/20 History mcg/dose blistr powdr for inhalation metoprolol tartrate 50 mg tablet 50 mg PO BID 12/01/18 10/22/20 History losartan 100 1 tab PO DAILY #30 tab 06/09/20 10/22/20 Rx mg-hydrochlorothiazide 12.5 mg tablet isosorbide mononitrate 60 mg 90 mg PO DAILY #45 tab 08/23/20 10/22/20 Rx tablet,extended release 24 hr Levothyroxine Sodium 1 tab PO DAILY 10/23/20 10/23/20 History [Levothyroxine 137mcg (0.137mg) Tab] Allergies Allergy/AdvReac Type Severity Reaction Status Date / Time Penicillins [PENICILLINS] Allergy Unknown I-RASH Verified 09/21/20 13:57 Exam Vital signs and Labs for Last 24 Hours: Temp Pulse Resp BP Pulse Ox 98.2 F 60 17 143/71 H 100 10/23/20 08:00 10/23/20 08:00 10/23/20 08:00 10/23/20 08:00 10/23/20 08:00 Laboratory Results - last 24 hr 10/22/20 12:40: WBC 5.0, R
--- NOTE | 2020-10-23 10:02 | CA_ITS ---
APPROVED REPORT Sewer And Drain Technician: Diane Ulrich RVT Laterality: Bilateral Study Quality: Good Indications: Syncope, Carotid stenosis Risk Factors Hypertension: Hyperlipidemia Doppler Spectral Velocity Analysis ECA (R) 80.20/7.50 cm/s ECA (L) 75.90/8.60 cm/s dICA (R) 78.10/21.40 cm/s dICA (L) 95.20/34.20 cm/s Roselia (R) 81.30/22.50 cm/s Roselia (L) 85.50/31.00 cm/s pICA (R) 63.10/15.00 cm/s pICA (L) 56.70/21.40 cm/s dCCA (R) 56.70/15.00 cm/s dCCA (L) 55.60/18.20 cm/s pCCA (R) 69.50/11.80 cm/s pCCA (L) 63.10/16.00 cm/s Vert (R) 37.40/10.70 cm/s Vert (L) 40.60/12.80 cm/s ICA/CCA 1.43 ICA/CCA 1.71 Findings Study suggests less than 20% stenosis of the bilateral internal cartoid arteries. Antegrade flow seen bilateral vertebral arteries. Conclusion Study suggests less than 20% stenosis of the bilateral internal cartoid arteries. Antegrade flow seen bilateral vertebral arteries. Electronically signed by : Francisco Monaco MD 10/23/2020 15:52:54
[2020-10-23 12:00] VITALS: PULSE 80
--- NOTE | 2020-10-23 13:21 | HMH.DCSUM ---
General - General Admission date:: 10/22/20 Discharge date: 10/23/20 HPI HPI: 75-year-old white female with history of arrhythmia who in fact has an implanted loop recorder in with multiple episodes of syncope and possible bradycardia was at [facility] services yesterday morning and afterwards on her way out became very hot and somewhat diaphoretic and had a syncopal episode. A nurse at the [facility] service took her pulse rate and reported that it was between 30 and 40. She had a couple episodes of this over the weekend, once when she put on a very warm sweater, and another one after she got up from a lunch gathering. These resolved spontaneously. She presented to the emergency department where she was admitted overnight for further evaluation, telemetry monitoring and cardiology evaluation. Hospital Course Hospital Course: Patient was admitted, telemetry monitoring and cardiac enzyme testing were unremarkable, patient felt well throughout her stay. Cardiology consult was obtained, notes as below: Assessment and Plan for all problems:: plan: 1. The patient was admitted to the hospital for observation following a syncopal episode. It was reported by nurse at the [facility] that her heart rate was down into the 30s and 40s when she had a syncopal episode. Her loop recorder was interrogated and showed no significant bradycardic episodes. Her lower limit was set at 30 bpm. This has been increased to 50 bpm to see if the patient is truly having episodes of bradycardia. 2. The patient is on a beta-azucena. If she is having bradycardia we do need to decrease her dose of her beta-azucena to prevent these episodes of bradycardia. We will decrease her metoprolol to 25 mg p.o. twice daily for better heart rate control. 3. Her blood pressure is elevated. Since we are decreasing her beta-azucena we will start her on Norvasc 5 mg daily for better blood pressure control. 4. The patient does have a history of coronary artery disease. She denies any chest pain or pressure. Her troponin is negative. No plans for invasive left cardiac catheterization at this time. 5. Her LDL goal is less than 55. 6. The patient does have a history of coronary artery disease. We will repeat a carotid ultrasound at this time. 7. At this time Dr. Moran does not recommend permanent pacemaker placement. He wants to try adjusting her beta-azucena to see if her syncopal episodes improve. He feels like the patient is likely having a vasovagal response more than this being from symptomatic bradycardia. 8. No further recommendations at this time from a cardiac standpoint. The patient is to follow-up in 1 to 2 weeks on an outpatient basis when she is discharged from the hospital. As a result patient will be discharged home with lower beta-azucena dose, close follow-up with cardiology Objective Vital signs: Temp Pulse Resp BP Pulse Ox 98.2 F 80 17 143/71 H 100 10/23/20 08:00 10/23/20 12:00 10/23/20 08:00 10/23/20 08:00 10/23/20 08:00 no acute distress - *Routine HEENT Exam Head: Present: normocephalic Eye: Present: EOMI, PERRL ENT: Present: mucous membranes moist - *Routine Neck Exam Present: supple - *Routine Respiratory Exam Present: CTA bilaterally - *Routine Cardiovascular Exam Present: RRR - *Routine Abdominal Exam Present: soft, normoactive bowel sounds. Absent: tenderness - *Routine Extremities Exam Absent: cyanosis, clubbing, edema - *Routine Skin Exam Present: warm. Absent: rash - Detailed Eye Exam Eyelids: Bilateral normal inspection Results Labs on day of discharge: Labs from last 24 hours 10/22/20 10/22/20 10/22/20 18:40 15:40 15:30 D-Dimer Troponin I < 0.01 < 0.01 Chlamy pneumoniae PCR Not detected Adenovirus (PCR) Not detected B. pertussis DNA (PCR) Not detected Coronavirus OC43 (PCR) Not detected Coronavirus HKU1 (PCR) Not detected Coronavirus 229E (PCR)
== END 2020-10-23 14:30 | disposition home or self-care (01) ==
LOC: ER 14:56 → 2ND 15:48
PROVIDERS: Admitting Provider Emergency Medicine; Emergency Provider Emergency Medicine; PCP Internal Medicine Adolescent Medicine; Visit Provider Internal Medicine Adolescent Medicine
DX: R00.1 Bradycardia, unspecified (principal); F32.9 Major depressive disorder, single episode, unspecified; E78.5 Hyperlipidemia, unspecified; I10 Essential (primary) hypertension; E03.9 Hypothyroidism, unspecified; E11.9 Type 2 diabetes mellitus without complications; I08.0 Rheumatic disorders of both mitral and aortic valves; I25.10 Atherosclerotic heart disease of native coronary artery without angina pectoris; Z79.82 Long term (current) use of aspirin
CPT/HCPCS: 36415; 71046; 71275; 72170; 80053; 84484; 85007; 85025; 85378; 87581; 87633; 87798; 93005; 93880; 99284; G0378; Q9967

== ENCOUNTER → 2021-02-01 11:18 | Outpatient (CLI) | payer MEDICARE, OTHER, SELFPAY ==
[2021-02-01 11:40] LABS: Blood Urea Nitrogen 23 mg/dl (7-17); Estimated Glomerular Filt Rate 49 ml/min (>60); GFR (African American) 59 ML/MIN (>60)
--- NOTE | 2021-02-01 12:41 | CT_ITS ---
PROCEDURE: CT CHEST W CON CLINCAL INDICATION: LUNG NODULE Nonsmoker COMPARISON: CT CHW CT CHEST W/ CONTRAST from 01/03/[address] ANGIO CHEST from 10/22/2020 TECHNIQUE: IV Contrast: 75ml Isovue 370 Axial images obtained with sagittal and coronal reformats. All CT scans at the facility use one or more dose reduction, viz: automated exposure control, ma/kV adjustment per patient size (including targeted exams where dose is matched to indication, i.e. head), or iterative reconstruction technique. FINDINGS: HEART AND MEDIASTINAL STRUCTURES: Unremarkable. LUNGS AND PLEURAL SPACES: No change in the 2 cm nodule in the left lower lobe posterior to the heart with some adjacent atelectatic or fibrotic changes. Calcified granuloma is present in the left lower lobe. No lobar consolidation or collapse. No areas of infiltrate. BONY STRUCTURES: No acute bony abnormalities apparent. UPPER ABDOMEN: Unremarkable. ADDITIONAL FINDINGS: No other significant abnormalities. IMPRESSION: Stable CT appearance of the chest. No change in the left lower lobe nodule. Consider annual follow-up. Dictated by: Francisco Monaco MD 02/02/2021 08:39 Francisco Monaco MD in OV 02/02/2021 08:39
== END ==
PROVIDERS: PCP Internal Medicine Adolescent Medicine; Visit Provider Internal Medicine Adolescent Medicine
DX: R91.1 Solitary pulmonary nodule (principal); E03.9 Hypothyroidism, unspecified
CPT/HCPCS: 36415; 71260; 82565; 84520; Q9967

== ENCOUNTER → 2021-02-27 08:00 | Outpatient (CLI) | payer MEDICARE, OTHER, SELFPAY ==
[2021-02-28 11:39] LABS: Basophils % 0.8 % (0.1-2.0); Eosinophils # 0.2 K/mm3 (0.0-0.4); Eosinophils % 3.7 % (0.1-12.0); Hematocrit 38.3 % (37.0-47.0); Hemoglobin 12.6 g/dL (12.2-16.2); Lymphocytes # 4.5 K/mm3 (0.7-4.5); Lymphocytes % 92.4 % (10-50); Mean Corpuscular Hemoglobin 33.4 pg (27.0-31.2); Mean Corpuscular Volume 100.9 fl (81-99); Mean Platelet Volume 11.1 fl (7.4-10.4); Monocytes # 0.1 K/mm3 (0.1-1.0); Monocytes % 2.2 % (1.7-9.3); Neutrophils # 0.1 K/mm3 (1.8-7.8); Platelet Count 214 K/mm3 (142-424); Red Blood Count 3.79 M/mm3 (4.20-5.40); Red Cell Distribution Width 13.8 % (11.5-17.5); White Blood Count 4.9 K/mm3 (4.8-10.8)
[2021-02-28 12:47] LABS: MANUAL DIFFERENTIAL MANUAL DIFFERENTIAL (MANUAL DIFF)
[2021-02-28 13:18] LABS: Platelet Estimate Normal
[2021-02-28 13:27] LABS: Eosinophils % 7 % (0-3); Lymphocytes % 39 % (10-50); Monocytes % 5 % (2-9); Neutrophils % 45 % (42-76); Total Cells Counted 100
[2021-02-28 13:28] LABS: Burr Cells 1+; Tear Drop Cells 1+
[2021-02-28 13:29] LABS: Macrocytosis 1+
[2021-02-28 13:31] LABS: Chloride 105 mmol/L (98-107); Potassium 4.6 mmoL/L (3.5-5.1); Sodium 139 mmol/L (136-145)
[2021-02-28 13:33] LABS: Blood Urea Nitrogen 19 mg/dl (7-17); Estimated Glomerular Filt Rate 70 ml/min (>60); GFR (African American) 85 ML/MIN (>60)
[2021-02-28 13:34] LABS: Alanine Aminotransferase 10 U/L (12-78); Albumin Level 4.3 g/dl (3.5-5.0); Albumin/Globulin Ratio 1.8 (1.1-1.8); Alkaline Phosphatase 102 U/L (38-126); Anion Gap 15.6 mEq/L (5-15); Aspartate Amino Transferase 23 U/L (14-36); Bilirubin,Total 0.4 mg/dl (0.2-1.3); Carbon Dioxide 23 mmol/L (22.0-30.0); Globulin 2.4 g/dL (1.3-3.2); Glucose 89 mg/dl (74-100); Total Protein,Serum 6.7 g/dl (6.3-8.2)
[2021-02-28 13:35] LABS: Calcium 9.1 mg/dl (8.4-10.2)
[2021-02-28 13:58] LABS: Free Thyroxine Index 2.7 ug/dL (5.93-13.13); T4 (Thyroxine) 7.4 ug/dl (5.53-11.0); Triiodothryronine (T3) Uptake 37 % (23.5-40.5)
[2021-02-28 14:12] LABS: Thyroid Stimulating Hormone 0.02 uIU/mL (0.465-4.68)
[2021-02-28 14:27] LABS: Vitamin B12 179 pg/mL (239-931)
== END ==
PROVIDERS: Visit Provider Internal Medicine Adolescent Medicine
DX: E04.1 Nontoxic single thyroid nodule (principal); E03.9 Hypothyroidism, unspecified; Z86.39 Personal history of other endocrine, nutritional and metabolic disease
CPT/HCPCS: 80053; 82607; 84436; 84443; 84479; 85007; 85025

== ENCOUNTER → 2021-03-05 10:31 | Outpatient (CLI) | payer MEDICARE, OTHER, SELFPAY ==
--- NOTE | 2021-03-05 10:36 | US_ITS ---
PROCEDURE: US THYROID CLINICAL INDICATION: THYROID NODULE COMPARISON: US US THYROID from 05/17/2019 FINDINGS: Right lobe: 3.9 x 1.5 x 1.5 cm with diffuse heterogeneous echogenicity. Stable 1 cm nodules present in the lower pole. The nodule hypoechoic peripherally with increased echogenicity centrally Left lobe: 3.4 x 1.6 x 10.9 cm with diffuse heterogeneous echogenicity and no dominant nodule. Isthmus: Unremarkable Additional findings: IMPRESSION: Stable 1 cm nodule of the right lobe of the thyroid gland with diffuse bilateral thyroid heterogeneous echogenicity Dictated by: Francisco Monaco MD 03/05/2021 11:17 Francisco Monaco MD in OV 03/05/2021 11:17
== END ==
PROVIDERS: PCP Internal Medicine Adolescent Medicine; Visit Provider Internal Medicine Adolescent Medicine
DX: E04.1 Nontoxic single thyroid nodule (principal)
CPT/HCPCS: 76536

== ENCOUNTER → 2021-12-26 13:00 | Outpatient (CLI) | payer MEDICARE, OTHER, SELFPAY ==
--- NOTE | 2021-12-26 13:01 | CA_ITS ---
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, CAD, HTN, HLD Echo Enhancing Agent Comments: Limited acoustic windows throughout exam 2D Dimensions IVSd 1.07 cm LVEF (Visual) 50.10 % PWd 1.06 cm LA Volume 34.40 mL LVDd 4.07 cm LA Volume Index 20.70 mL/m2 (M/F) 16-34 LVDs 3.05 cm Aortic Root 2.45 cm Left Atrium 2.90 cm LVOT 1.89 cm (M/F) 1.5-2.5 M-Mode Dimensions RVDd 2.82 cm (0.9-2.6) LA Diam 3.37 cm (1.9-4.0) LVDd 4.72 cm (3.5-5.7) Ao Diam 2.94 cm (2.0-3.7) LVDs 3.11 cm (3.5-5.7) IVSd 1.04 cm (0.6-1.1) PWd 1.14 cm (0.6-1.1) EF (Teich) 63.10% EPSs 0.43 cm FS 34.10% EDV (Teich) 103.40 mL TAPSE 1.41 (<1.7) ESV (Teich) 38.20 mL LV Diastology E Decel Time 167.00 (160-240 msec) E/A Ratio 0.67 MED E' 6.80 (< 7 cm/sec) MED A' 13.60 cm/s E'/MED E' Ratio 7.60 (>14) LAT E' 7.50 (<10 cm/sec) LAT A' 12.60 cm/s E/LAT E' Ratio 6.89 (>14) Aortic Valve LVOT Max 120.00 (70-110 cm/s) LVOT VTI 18.01 cm AoV Peak Brian. 160.00 (50-130 cm/s) AI PHT 537.00 ms AO Peak GR. 10.20 mmHg AO Mean GR. 5.10 (<5 mmHg) AO VTI 29.01 (18-25 cm) MARYELLEN (VTI) 1.74 (2.5-4.5 cm2) Mitral Valve MV A Velocity 77.00 (40-130 cm/s) E/A Ratio 0.67 MV Decel. Time 167.00 (160-240 ms) MV Mean Gr. 1.20 (<2mmHg) MV PHT 53.00 ms Pulmonary Valve PV Peak Velocity 91.00 (50-150 cm/s) Tricuspid Valve TR P. Velocity 183.00 cm/s Left Ventricle Left atrium is mildly enlarged, left ventricle is normal size, mild concentric left ventricular hypertrophy, estimated ejection fraction 55% with no regional wall motion abnormality, grade 1 diastolic dysfunction seen without tissue Doppler evidence of raise left atrial pressure. Right Ventricle Right atrium and right ventricle are normal size and contractility. Aortic Valve Aortic valve is minimally thickened and fibrosed there is no aortic stenosis or aortic insufficiency. Mitral Valve Mitral valve leaflets are not well visualized, posterior mitral valve leaflet prolapse is not confirmed, due to poor visualization of the leaflets. There is mild mitral regurgitation. Tricuspid Valve Tricuspid valve is grossly normal, there is trace tricuspid regurgitation. Pulmonic Valve Pulmonic valve is poorly visualized. Great Vessels Aortic root is normal size. Inferior vena cava is normal size with normal inspiratory collapse. Pericardium No significant pericardial effusion noted. Conclusion 1. Technically difficult study because of the patient factors and poor acoustic windows. 2. Normal left ventricular size, mild concentric left ventricular hypertrophy, estimated ejection fraction 55% with no regional wall motion abnormality, grade 1 diastolic dysfunction seen without tissue Doppler evidence of raise left atrial pressure. 3. Mitral valve leaflets not well visualized, posterior mitral valve leaflet prolapse is not confirmed in the study, there is mild mitral regurgitation. 4. No significant pericardial effusion noted. 5. Inferior vena cava is normal size with normal inspiratory collapse. Electronically signed by : Anthony Moscoso MD 12/28/2021 11:40:09
== END ==
PROVIDERS: PCP Internal Medicine Adolescent Medicine; Visit Provider Physician Assistant
DX: E78.2 Mixed hyperlipidemia (principal); I10 Essential (primary) hypertension; I25.10 Atherosclerotic heart disease of native coronary artery without angina pectoris; I34.0 Nonrheumatic mitral (valve) insufficiency; I34.1 Nonrheumatic mitral (valve) prolapse; I65.21 Occlusion and stenosis of right carotid artery; K21.9 Gastro-esophageal reflux disease without esophagitis
CPT/HCPCS: 93306

== ENCOUNTER → 2022-03-13 13:40 | Outpatient (CLI) | payer MEDICARE, OTHER, SELFPAY ==
--- NOTE | 2022-03-13 13:44 | US_ITS ---
FINAL REPORT CLINICAL HISTORY: THYROID NODULE COMPARISON: March 05, 2021 FINDINGS: THYROID ULTRASOUND Sonographic images of the thyroid was obtained. The thyroid parenchyma is heterogeneous. The right lobe of the thyroid measures 3.8 x 1.5 x 1.2 cm. There is a nodule in the lower pole of the right lobe of the thyroid. The nodule measures 1.4 cm is consistent with a TI-RADS 4. The left lobe of the thyroid measures 2.9 by 1.2 x 0.8 cm. The isthmus measures 3 mm. IMPRESSION: Right lower pole thyroid nodule, TI-RADS 4. Recommend continued follow-up in 1 year. Reviewed, Interpreted and Dictated by Karl Laws MD Transcribed by Becky Gonzalez Authenticated and [facility]
--- NOTE | 2022-03-13 13:45 | CT_ITS ---
FINAL REPORT TECHNIQUE: Axial images were obtained through the chest without contrast. This study was performed with techniques to keep radiation doses as low as reasonably achievable (ALARA). Individualized dose reduction techniques using automated exposure control or adjustment of mA and/or kV according to the patient's size were employed. CLINICAL HISTORY: PULMONARY NODULE f/u COMPARISON: 02/01/2021 and 11/07/2020 FINDINGS: There are partially calcified right paratracheal and AP window lymph nodes, similar to previous. The heart is normal in size. There is no pericardial or pleural effusion. The previously noted soft tissue mass contiguous with the posterior heart border is again identified measuring 2.0 x 1.7 cm. Finding is well seen on image number 157 of series 3. There is scarring at the bases. There is a small sliding-type hiatal hernia. The gallbladder is absent. IMPRESSION: Redemonstrated is a left lower lobe soft tissue mass, similar to previous. Stability would suggest benign etiology but if clinical concern exists, PET CT can be considered. Reviewed, Interpreted and Dictated by Karl Lwas MD Transcribed by Ayaka Mehta Authenticated and [facility]
== END ==
PROVIDERS: PCP Internal Medicine Adolescent Medicine; Visit Provider Internal Medicine Adolescent Medicine
DX: Z12.31 Encounter for screening mammogram for malignant neoplasm of breast (principal); R91.1 Solitary pulmonary nodule; E04.1 Nontoxic single thyroid nodule
CPT/HCPCS: 71250; 76536

== ENCOUNTER → 2022-03-18 10:18 | Outpatient (CLI) | payer MEDICARE, OTHER, SELFPAY ==
--- NOTE | 2022-03-18 10:21 | MM_ITS ---
PROCEDURE INFORMATION: Exam: MG Bilateral Screening 3D Mammography Exam date and time: 03/18/2022 10:24 AM Age: 76 years old Clinical indication: Screening examination TECHNIQUE: Imaging protocol: Bilateral Screening tomosynthesis and 2D mammography including computer-aided detection (CAD) when performed. COMPARISON: 1. MG MM DIG SCREENING MAMM BI W/CAD 07/24/2020 8:15 AM 2. MG SCBI MM Dig screening mamm BI w/CAD 07/23/2018 10:10 AM FINDINGS: MAMMOGRAPHY: Breast composition: There are scattered areas of fibroglandular density. Mass: None. Architectural distortion: None. Calcifications: No suspicious calcifications. Asymmetric density: None. Skin thickening: None. Axillary adenopathy: None. IMPRESSION: No mammographic evidence of malignancy. Annual screening is recommended unless otherwise clinically indicated. ASSESSMENT: BI-RADS Category 1: Negative
== END ==
PROVIDERS: PCP Internal Medicine Adolescent Medicine; Visit Provider Internal Medicine Adolescent Medicine
DX: Z12.31 Encounter for screening mammogram for malignant neoplasm of breast (principal)
CPT/HCPCS: 77063; 77067

== ENCOUNTER → 2022-03-27 09:47 | Outpatient (POV) | payer MEDICARE, OTHER, SELFPAY ==
--- NOTE | 2022-03-27 10:01 | EXP.PAIN.OV ---
HPI Data of Consult Patient: known to practice within the last 3 years Consult date: 03/27/22 Requesting Physician: Telma Elias APRN Primary Care Provider: Chau Durham MD Consult Narrative Reason for consult: Bilateral SI pain, bilateral leg pain History of present illness: Ms. Pitt is a 76 year old female who presents today as a new patient. She is a referral from Dr. Durham's office. Patient rates her pain today a 6 out of 10 and states it is primarily in her low back that radiates into bilateral extremities. She describes this as a aching sensation that it is worse at night. She states this is beginning to affect her activities of daily living. Patient was a previous client of our office about 2 years ago where she was treated for bilateral sacroiliitis and had injective therapy. Patient states that she that she did have significant improvement in the past with those injections. She states that she felt like this pain has slowly been increasing and she felt like she needed repeat injections again. Patient is not on any scheduled narcotics. Her Ulisses is [id number]. It has been reviewed and appropriate. CC: Telma Elias APRN PFS PFS Social History Smoking Status: Never smoker second hand exposure: No alcohol intake: current substance use type: denies use current occupational status: retired Travel in the last 8 weeks: Inside the [place] household members: significant other and none housing: house current occupational exposures/hazards: No caffeine: Yes Review of Systems Review of Systems Review of systems:: pertinent systems reviewed and negative unless documented below Review of systems (narrative): Review of Systems: General: No recent weight changes, no fever, no sleep disturbances Respiratory: No cough, no shortness of air, no recurring pulmonary infections Cardiovascular/peripheral vascular: No chest pain, no palpitations, no edema, no shortness of breath Gastrointestinal: No new onset incontinence, normal bowel movements reported Genitourinary: No new onset incontinence Musculoskeletal: Low back pain, bilateral leg pain Psychiatric: [Normal mood/affect] Neurological: [Denies weakness in extremities], [denies balance issues] Meds Home Medications and Allergies Home Medications Medication Instructions Recorded Confirmed Type buspirone 10 mg tablet 10 mg PO TID Anxiety 12/01/18 12/21/21 History fluticasone 250 mcg-salmeterol 50 1 inh inhalation BID Allergy 12/01/18 12/21/21 History mcg/dose blistr powdr for symptoms inhalation (Advair Diskus) metoprolol tartrate 50 mg tablet 25 mg PO BID blood pressure 11/09/20 12/21/21 History losartan 100 See Rx Instructions .Route 06/18/21 12/21/21 Rx mg-hydrochlorothiazide 12.5 mg .COMPLEX #90 tabs tablet duloxetine 30 mg capsule,delayed 30 mg PO DAILY 06/21/21 12/21/21 History release levothyroxine 137 mcg tablet 100 mcg PO DAILY THYROID 06/21/21 12/21/21 History isosorbide mononitrate 60 mg 90 mg PO DAILY blood pressure #45 12/28/21 Rx tablet,extended release 24 hr tabs New Prescriptions to Start Prescriptions: Allergies Allergy/AdvReac Type Severity Reaction Status Date / Time Penicillins [PENICILLINS] Allergy Unknown I-RASH Verified 12/21/21 10:36 Objective Narrative: Physical Exam: General: Alert and oriented x3, no acute distress, pleasant and cooperative Lungs: Respirations even and unlabored, symmetrical chest expansion Eyes: PERRL Musculoskeletal: Flexion and extension of lumbar [spine] somewhat guarded secondary to pain, [antalgic gait noted]. Extreme point tenderness along bilateral SI's and positive bilateral Rita's, Sindhu's, Gaenslen's, compression and distraction exam Neurological: Speech clear, no gross sensory deficit Opioid Risk Tool Opioid Risk Tool-Female Family hx alcohol abuse: No Family hx illegal drugs: No Family hx rx drug abuse: No Personal hx alcohol abuse: No P
[2022-03-27 10:14] VITALS: BP 118/73; PULSE 68; RESP 18; TEMP 37.5; O2SAT 98; BMI 23.9
== END ==
PROVIDERS: PCP Internal Medicine Adolescent Medicine; Visit Provider Nurse Practitioner Family
DX: M46.1 Sacroiliitis, not elsewhere classified (principal); M54.50 Low back pain, unspecified; M79.604 Pain in right leg; M79.605 Pain in left leg
CPT/HCPCS: 99202; G0463

== ENCOUNTER 2022-04-09 14:21 | Day surgery (SDC) | payer MEDICARE, OTHER, SELFPAY ==
[2022-04-09 14:35] VITALS: BP 129/65; PULSE 70; RESP 18; TEMP 36.8; O2SAT 100; BMI 23.0
[2022-04-09 14:40] VITALS: BP 133/67; PULSE 78; RESP 18; O2SAT 97
[2022-04-09 14:41] VITALS: BP 133/67; PULSE 76; RESP 18; O2SAT 97
--- NOTE | 2022-04-09 14:44 | P.PCN_ITS ---
Procedure Date: 04/09/22 Time: 14:44 Anesthesiologist:: Matthieu Richardson CRNA Complications:: None Pre-procedure Diagnosis:: Bilateral sacroiliitis, low back pain, right leg pain Post-procedure Diagnosis:: Same Indications for Procedure:: patient is a pleasant 76-year-old female who presents today for bilateral SI injection. We are currently treating the patient for bilateral sacroiliitis, low back pain, right leg pain. Today the patient rates her pain a 5 out of 10. She states the pain is primarily in her low back and radiates into her bilateral extremities. Patient states she has pain primarily when she is laying down or sitting. Patient describes this as an aching sensation that is worse with prolonged positioning. Patient denies any new trauma or injury. Physical exam General: Alert and oriented x3, pleasant and cooperative on room air, no acute distress Lungs: Respirations even and unlabored symmetrical chest expansion Eyes: PERRL Musculoskeletal: Flexion and extension of the lumbar spine somewhat guarded secondary to pain, antalgic gait noted Neurological: Speech clear, no gross sensory deficits Procedure Details:: Informed consent was obtained and the risk and benefits of the procedure were explained to the patient. The patient was taken to the procedure room where noninvasive monitors were placed including a noninvasive blood pressure cuff and a pulse ox monitor. Patient was placed prone on the procedure table. The lower back/buttocks was cleansed using chlorhexidine as a cleansing solution. C arm fluoroscopy was used to visualize the right SI joint. The skin and subcutaneous tissue was accessed using a 22-gauge spinal needle and inserted under fluoroscopic guidance into the inferior aspect of the right SI joint. Approximately 5 mL of bupivacaine 0.25% and Depo-Medrol 40 mg was incrementally injected into the right SI joint We then moved to the left SI joint. Skin and subcutaneous tissues were accessed using a 22-gauge needle under fluoroscopic guidance into the inferior aspect of the left sacroiliac joint. Approximately 5 mL of bupivacaine 0.25 and Depo- Medrol 40 mg was incrementally injected into the left SI joint. Patient tolerated the procedure well with no complications. Plan and Disposition:: Patient was observed in the clinic for period of time and then discharged home neurologically intact. Patient has been counseled to contact the office with any questions or concerns before the next appointment. Dr. Wade is read this note and agrees with this plan of care. This note was dictated using voice recognition software and may contain errors or omissions.
[2022-04-09 14:45] VITALS: BP 129/63; PULSE 67; RESP 18; O2SAT 100
== END 2022-04-09 14:45 | disposition home or self-care (01) ==
PROVIDERS: PCP Internal Medicine Adolescent Medicine; Visit Provider Nurse Anesthetist, Certified Registered
DX: M46.1 Sacroiliitis, not elsewhere classified (principal); M54.50 Low back pain, unspecified; M79.604 Pain in right leg
CPT/HCPCS: 27096; G0260; J1030

== ENCOUNTER → 2022-04-24 10:48 | Outpatient (POV) | payer MEDICARE, OTHER, SELFPAY ==
[2022-04-24 11:24] VITALS: BP 107/65; PULSE 80; RESP 18; TEMP 37.4; O2SAT 100; BMI 23.0
--- NOTE | 2022-04-24 11:47 | A.OFFVIS_ITS ---
[facility] Pain Management SOAP Note Subjective:: Patient is a pleasant 76-year-old female who presents today for follow-up of bilateral SI injections on 04/09/2022. We are currently treating the patient for bilateral sacroiliitis, low back pain, right leg pain. Patient states she has had at least 50% relief following this injection and feels like it is still currently helping. Today the patient does rate her pain an 8 out of 10. She denies any new trauma or injury. She denies any change to location or type of pain she experiences. She states primarily her main pain is at night when she goes to lay down and the prolonged positioning or sitting such as driving in her vehicle. Patient states she does well when she is up moving around. She has tried a back brace in the past with minimal improvement of her symptoms. Patient is not on any scheduled medications. Her Ulisses is [id number]. It is been reviewed and appropriate. Review of Systems: General: No recent weight changes, no fever, no sleep disturbances Respiratory: No cough, no shortness of air, no recurring pulmonary infections Cardiovascular/peripheral vascular: No chest pain, no palpitations, no edema, no shortness of breath Gastrointestinal: No new onset incontinence, normal bowel movements reported Genitourinary: No new onset incontinence Musculoskeletal: Low back pain Psychiatric: [Normal mood/affect] Neurological: [Denies weakness in extremities], [denies balance issues] Objective:: Physical Exam: General: Alert and oriented x3, no acute distress, pleasant and cooperative Lungs: Respirations even and unlabored, symmetrical chest expansion Eyes: PERRL Musculoskeletal: Flexion and extension of lumbar [spine] somewhat guarded secondary to pain, [antalgic gait noted] Neurological: Speech clear, no gross sensory deficit Assessment:: Bilateral sacroiliitis, low back pain with lumbar radiculopathy symptoms, right leg pain Plan:: Patient had significant improvement following this injection however she still has pain when in prolonged positioning such as laying down or sitting. I will prescribe tizanidine 4 mg at night and provide a 14-day supply of this medication. I have also discussed with the patient regarding a possible epidural steroid injection. Risk and benefits were discussed. At this time the patient would like to wait. I have also counseled the patient that she may benefit from physical therapy in the future. We will follow-up with the patient in 2 weeks for reevaluation of symptoms and medication refill if indicated. Patient has been instructed to contact the clinic with any concerns before the next appointment. Dr. Wade has reviewed this note and agrees with this plan of care. This note was dictated using voice recognition software and make contain errors or omissions. [facility] Medical History Asthma Cataract HTN (hypertension) Surgical History (Updated 04/09/22 @ 14:36 by Cecelia Pollard RN) History of History of hysterectomy Status post spinal disc removal Family History (Updated 04/09/22 @ 14:36 by Cecelia Pollard RN) Other No significant family history Social History Smoking Status: Never smoker second hand exposure: No alcohol intake: current substance use type: denies use current occupational status: retired Travel in the last 8 weeks: None household members: significant other and none housing: house current occupational exposures/hazards: No caffeine: Yes
== END | disposition home or self-care (01) ==
PROVIDERS: PCP Internal Medicine Adolescent Medicine; Visit Provider Nurse Practitioner Family
DX: M46.1 Sacroiliitis, not elsewhere classified (principal); M54.16 Radiculopathy, lumbar region; M79.604 Pain in right leg
CPT/HCPCS: 99212; G0463

== ENCOUNTER → 2022-05-09 12:54 | Outpatient (POV) | payer MEDICARE, OTHER, SELFPAY ==
[2022-05-09 13:08] VITALS: BP 108/68; PULSE 67; RESP 18; TEMP 36.7; O2SAT 98; BMI 23.9
--- NOTE | 2022-05-09 13:23 | EXP.PAIN.SOA ---
[facility] Pain Management SOAP Note Subjective:: Patient is a pleasant 77-year-old female who presents today for follow-up. We are currently treating the patient for bilateral sacroiliitis, low back pain, right leg pain. Today the patient rates her pain a 10 out of 10. She states the pain is all in her low back that radiates into her bilateral hips and upper legs. Patient denies any new trauma or injury. She denies any change to location or type of pain she experiences. Patient has done injective therapy in the past that provided significant improvement of her symptoms. Her last injection on 04/09/2022 of bilateral SI's provided at least 60% relief and lasted several weeks. Patient states prior to that injection she did have a bilateral SI injection that gave 90% relief lasting over 1 year. Patient does states that she has a lot of pain when she goes to lay down at night that often affects her sleeping. We recently did start the patient on tizanidine 4 mg and she states this has significantly improved her sleeping. She is requesting a refill at today's visit. Her Ulisses is [id number]. It has been reviewed and appropriate. Review of Systems: General: No recent weight changes, no fever, no sleep disturbances Respiratory: No cough, no shortness of air, no recurring pulmonary infections Cardiovascular/peripheral vascular: No chest pain, no palpitations, no edema, no shortness of breath Gastrointestinal: No new onset incontinence, normal bowel movements reported Genitourinary: No new onset incontinence Musculoskeletal: Low back pain Psychiatric: [Normal mood/affect] Neurological: [Denies weakness in extremities], [denies balance issues] Objective:: Physical Exam: General: Alert and oriented x3, no acute distress, pleasant and cooperative Lungs: Respirations even and unlabored, symmetrical chest expansion Eyes: PERRL Musculoskeletal: Flexion and extension of lumbar [spine] somewhat guarded secondary to pain, [antalgic gait noted]. Extreme point tenderness along bilateral SI's and positive bilateral Rita's, Sindhu's, Gaenslen's, compression and distraction exam Neurological: Speech clear, no gross sensory deficit Assessment:: Low back pain, bilateral sacroiliitis, right leg pain Plan:: Patient is experiencing significant pain in her low back that radiates into bilateral upper extremities. Patient did have limited range of motion of her lumbar spine during today's visit. She also had extreme point tenderness along bilateral SI's and positive bilateral Rita's, Sindhu's, Gaenslen's, compression and distraction exam. Patient's previous injections have provided at least 50 to 60% improvement lasting for several weeks. I have discussed with the patient regarding having repeat bilateral SI injections. Risk and benefits were discussed with the patient. She would like to proceed forward with this option. I have also discussed with the patient regarding future SI ablation or stabilization procedures. I will refill the patient's tizanidine 4 mg at night and provide a 1 month supply of this medication. We will schedule the patient for bilateral SI injections at today's visit. Patient has been instructed to contact the clinic with any concerns before the next appointment. Dr. Wade has reviewed this note and agrees with this plan of care. This note was dictated using voice recognition software and make contain errors or omissions. [facility] Medical History Asthma Cataract HTN (hypertension) Surgical History (Updated 04/09/22 @ 14:36 by Cecelia Pollard RN) History of History of hysterectomy Status post spinal disc removal Family History (Updated 04/09/22 @ 14:36 by Cecelia Pollard RN) Other No significant family history Social History Smoking Status: Never smoker second hand exposure: No alcohol intake: curr
== END | disposition home or self-care (01) ==
PROVIDERS: PCP Internal Medicine Adolescent Medicine; Visit Provider Nurse Practitioner Family
DX: M54.50 Low back pain, unspecified (principal); M46.1 Sacroiliitis, not elsewhere classified; M79.604 Pain in right leg
CPT/HCPCS: 99212; G0463

== ENCOUNTER 2022-05-24 12:01 | Day surgery (SDC) | payer MEDICARE, OTHER, SELFPAY ==
[2022-05-24 12:20] VITALS: BP 136/74; PULSE 72; RESP 18; TEMP 37.2; O2SAT 100; BMI 23.0
[2022-05-24 12:32] VITALS: BP 160/75; PULSE 70; RESP 18; O2SAT 98
[2022-05-24 12:33] VITALS: BP 160/75; PULSE 70; RESP 18; O2SAT 98
--- NOTE | 2022-05-24 12:37 | P.PCN_ITS ---
Procedure Date: 05/24/22 Time: 12:37 Anesthesiologist:: Leonid Wade MD Complications:: None Pre-procedure Diagnosis:: Sacroiliitis Post-procedure Diagnosis:: Same Indications for Procedure:: Patient is a pleasant 77-year-old white female who we are treating for bilateral hip pain. She is tender over both SI joints. She has positive Rita's test bilaterally. Is positive Cocoa's test bilaterally. Is positive SI joint compression test bilaterally. We will plan on bilateral SI joint injections today under fluoroscopy to help with pain symptoms. Procedure Details:: B/L SI joint injection under fluoroscopy Informed consent was obtained and the risks and benefits of the procedure was explained to the patient. The patient was taken to the procedure room and placed prone on the procedure table. The patient was prepped using ChloraPrep. The skin and subcutaneous tissues overlying the SI joints were anesthetized using lidocaine. I placed a 22-gauge needle first in the left SI joint and second in the right SI joint. Needle placement was confirmed with dye. After this we injected 5 mL bupivacaine 0.25% and Depo-Medrol 40 mg into each SI joint. Patient tolerated the procedure well with no complication. Plan and Disposition:: We will follow-up with her in 2 weeks. Will reevaluate symptoms at that time.
--- NOTE | 2022-05-24 13:19 | PC.NURSE ---
Pt. exited unit prior to receiving post procedure vital signs.
== END 2022-05-24 12:40 | disposition home or self-care (01) ==
PROVIDERS: PCP Internal Medicine Adolescent Medicine; Visit Provider Nurse Anesthetist, Certified Registered
DX: M46.1 Sacroiliitis, not elsewhere classified (principal)
CPT/HCPCS: 27096; G0260; J1030

== ENCOUNTER → 2022-06-11 09:35 | Outpatient (POV) | payer MEDICARE, OTHER, SELFPAY ==
[2022-06-11 09:50] VITALS: BP 126/66; PULSE 62; RESP 18; O2SAT 100; BMI 23.0
--- NOTE | 2022-06-11 10:00 | EXP.PAIN.SOA ---
[facility] Pain Management SOAP Note Subjective:: Patient is a pleasant 77-year-old female who presents today for follow-up of bilateral SI injections on 05/24/2022. We are currently treating the patient for bilateral sacroiliitis, low back pain, right leg pain. Today the patient states that she has had at least 80% improvement following this injection and feels like it still providing additional relief. Patient does state her pain is 5 out of 10 and its just along the left side that is more so noticeable at night when she sleeping. Patient does continue to use pillows for positioning as well as she has tried [id number] Biofreeze and lidocaine patches with some improvement. Patient was prescribed tizanidine 4 mg at bedtime that she states has provided additional improvement with her sleeping and pain symptoms. She is requesting a refill at today's visit. Patient is not on any scheduled medications. Her Ulisses is [id number]. It has been reviewed and appropriate. Review of Systems: General: No recent weight changes, no fever, no sleep disturbances Respiratory: No cough, no shortness of air, no recurring pulmonary infections Cardiovascular/peripheral vascular: No chest pain, no palpitations, no edema, no shortness of breath Gastrointestinal: No new onset incontinence, normal bowel movements reported Genitourinary: No new onset incontinence Musculoskeletal: Low back pain Psychiatric: [Normal mood/affect] Neurological: [Denies weakness in extremities], [denies balance issues] Objective:: Physical Exam: General: Alert and oriented x3, no acute distress, pleasant and cooperative Lungs: Respirations even and unlabored, symmetrical chest expansion Eyes: PERRL Musculoskeletal: Flexion and extension of lumbar [spine] somewhat guarded secondary to pain, [antalgic gait noted] Neurological: Speech clear, no gross sensory deficit Assessment:: Low back pain, bilateral sacroiliitis, right leg pain Plan:: Patient has had significant improvement of her pain symptoms following her last SI injections. At this time she does not need additional injective therapy. I will order the patient a compounding cream at today's visit and refill her tizanidine 4 mg at bedtime and provide a 3-month supply of this medication. Patient will return to clinic in 1 month for reevaluation of symptoms and follow-up. Patient has been instructed to contact the clinic with any concerns before the next appointment. Dr. Wade has reviewed this note and agrees with this plan of care. This note was dictated using voice recognition software and make contain errors or omissions. PFSH PFSH Medical History Asthma Cataract HTN (hypertension) Surgical History History of appendectomy History of History of cholecystectomy History of colonoscopy History of hysterectomy History of loop recorder History of tonsillectomy Status post spinal disc removal Family History Other Family history of hypertension Family history of myocardial infarction Social History (Updated 06/06/22 @ 13:39 by Candy Stafford RN) Smoking Status: Never smoker second hand exposure: No alcohol intake: current substance use type: denies use current occupational status: retired Travel in the last 8 weeks: None household members: significant other and none housing: house education level: high school current occupational exposures/hazards: No caffeine: Yes special bimal needs: No agree to transfusion: No do you feel safe at home: Yes victim of physical abuse: No victim of emotional abuse: No victim of sexual abuse: No would you like helpful sources: No
== END | disposition home or self-care (01) ==
PROVIDERS: PCP Internal Medicine Adolescent Medicine; Visit Provider Nurse Practitioner Family
DX: M46.1 Sacroiliitis, not elsewhere classified (principal); M54.50 Low back pain, unspecified; M79.604 Pain in right leg
CPT/HCPCS: 99212; G0463

== ENCOUNTER 2022-07-03 09:01 | Day surgery (SDC) | payer MEDICARE, OTHER, SELFPAY ==
[2022-06-06 13:35] VITALS: BMI 23.0
[2022-07-03 09:40] VITALS: BP 152/75; PULSE 82; RESP 20; TEMP 37.2; O2SAT 100
--- NOTE | 2022-07-03 09:59 | P.PN_ITS ---
[facility] Disclaimer: The information contained in this section may have been updated after the patient was seen, as this information can be updated by other users. Medical History Asthma Cataract HTN (hypertension) Surgical History History of appendectomy History of History of cholecystectomy History of colonoscopy History of hysterectomy History of loop recorder History of tonsillectomy Status post spinal disc removal Family History Other Family history of hypertension Family history of myocardial infarction Social History Smoking Status: Never smoker second hand exposure: No alcohol intake: current substance use type: denies use current occupational status: retired Travel in the last 8 weeks: None household members: significant other and none housing: house education level: high school current occupational exposures/hazards: No caffeine: Yes special bimal needs: No agree to transfusion: No do you feel safe at home: Yes victim of physical abuse: No victim of emotional abuse: No victim of sexual abuse: No would you like helpful sources: No [facility] Anesthesia Checklist Patient Identification Patient Identification: Arm Band and Verbal (Name & ) Structural Data Admitted From: Home Planned Operative Procedure/s: Colonoscopy Consent for Planned Operative Procedure(s) Verified: Yes NPO Status Verified Time NPO: 00:00 Additional verifications Anesthesia Reactions: No Hx Blood Transfusions: No Blood Transfusion Reaction: No Airway Assessment C-Spine Mobility Assessed: Yes TMJ Mobility Assessed: Yes Dentition: Poor Dentition Neurological Assessment Level of Consciousness: Awake Hx Seizures: No Numbness or tingling in extremities: No Anesthesia Plan Anesthesia Risk discussed: Yes Anesthesia Plan: Verified ASA Class: III Anesthesia Type: MAC
[2022-07-03 10:12] VITALS: O2SAT 98
[2022-07-03 10:30] VITALS: BP 109/60; PULSE 89; RESP 18; TEMP 36.3; O2SAT 98
--- NOTE | 2022-07-03 10:30 | HMH.SCOPE ---
Procedure: Date: 07/03/22 Patient Date of :: 1945 Procedure Performed:: Colonoscopy Indications:: History of polyps Performing Provider:: Tre Carranza MD Referring Provider:: Chau Durham MD Sedation:: See RN records Procedure:: After placing the patient in the left lateral decubitus position, the colonoscopy was gently inserted into the rectum and under direct visualization advanced to the cecum which was identified by transillumination in the right lower quadrant, identification of the ileocecal valve, appendiceal orifice, and cecal strap. Color, texture, mucosa, and anatomy of the colon were carefully examined with the scope. Findings:: Anal canal: normal Rectum: Internal hemorrhoidsl Sigmoid colon: Diverticulosis. Sessile polyp 5 mm in size. Removed with cold snare polypectomy Descending colon: normal without polyps or inflammatory changes Splenic flexure: normal Transverse colon: normal without polyps or inflammatory changes Hepatic flexure: normal Ascending colon: normal without polyps or inflammatory changes Cecum: normal Terminal ileum: not visualized Impression: Polyp of sigmoid colon Diverticulosis Recommendations:: Await pathology results Repeat colonoscopy in 5 years Complications:: none Estimated blood obtained (mL): 0
[2022-07-03 10:40] VITALS: BP 102/58; PULSE 86; RESP 15; O2SAT 98
[2022-07-03 10:50] VITALS: BP 126/68; PULSE 79; RESP 15; O2SAT 93
[2022-07-03 11:00] VITALS: BP 138/80; PULSE 83; RESP 18; O2SAT 98
== END 2022-07-03 11:00 | disposition home or self-care (01) ==
PROVIDERS: PCP Internal Medicine Adolescent Medicine; Visit Provider Internal Medicine
PROC: 0DJD8ZZ Inspection of Lower Intestinal Tract, Via Natural or Artificial Opening Endoscopic (ICD-10-PCS; CPT 45378; principal; 2022-07-03 10:00)
DX: Z12.11 Encounter for screening for malignant neoplasm of colon (principal); D12.4 Benign neoplasm of descending colon; K64.8 Other hemorrhoids; Z86.010 Personal history of colon polyps; Z79.899 Other long term (current) drug therapy
CPT/HCPCS: 45385; 88305; J2704

== ENCOUNTER → 2022-07-24 11:16 | Outpatient (POV) | payer MEDICARE, OTHER, SELFPAY ==
[2022-07-24 11:43] VITALS: BP 158/62; PULSE 67; RESP 18; O2SAT 97; BMI 23.0
--- NOTE | 2022-07-24 12:23 | EXP.PAIN.SOA ---
[facility] Pain Management SOAP Note Subjective:: Patient is a pleasant 77-year-old female who presents today for follow-up. We are currently treating the patient for bilateral sacroiliitis, low back pain, right leg pain. Today the patient rates her pain a 3 out of 10. Patient denies any new trauma or injury. Patient denies any change to location or type of pain she experiences. Patient previously had a bilateral SI injections on 05/24/2022 that did provide at least 80% improvement for approximately 2 months. Patient states she is starting to notice more prominent symptoms returning. Patient was also given tizanidine 4 mg at bedtime and states this has provided significant improvement with her sleeping and pain symptoms at night. She is requesting a refill at today's visit. Patient is prescribed a compounding cream that she states has not noticed significant relief at this point. Her Ulisses is [id number]. Its been reviewed and appropriate. Review of Systems: General: No recent weight changes, no fever, no sleep disturbances Respiratory: No cough, no shortness of air, no recurring pulmonary infections Cardiovascular/peripheral vascular: No chest pain, no palpitations, no edema, no shortness of breath Gastrointestinal: No new onset incontinence, normal bowel movements reported Genitourinary: No new onset incontinence Musculoskeletal: Low back pain bilateral leg pain Psychiatric: [Normal mood/affect] Neurological: [Denies weakness in extremities], [denies balance issues] Objective:: Physical Exam: General: Alert and oriented x3, no acute distress, pleasant and cooperative Lungs: Respirations even and unlabored, symmetrical chest expansion Eyes: PERRL Musculoskeletal: Flexion and extension of lumbar [spine] somewhat guarded secondary to pain, [antalgic gait noted] extreme point tenderness along bilateral SI's with positive bilateral Rita's, Sindhu's, Gaenslen's, compression and distraction exam Neurological: Speech clear, no gross sensory deficit Assessment:: Low back pain, lumbar radiculopathy symptoms, chronic bilateral sacroiliitis Plan:: Patient is starting to experience worsening pain symptoms in her low back with radiating symptoms into her lower extremities. Patient did have limited range of motion of her lumbar spine along with extreme point tenderness along bilateral SI's and positive bilateral Rita's, Sindhu's, Gaenslen's, compression and distraction exam. Patient has had multiple SI injections that did provide significant improvement of her pain symptoms lasting a couple of months. I have discussed with the patient that she may benefit from SI RFA. Risk and benefits were discussed with the patient. She would like to proceed forward with this plan of care. Patient does state her right side is her worst side. We will schedule her for a right SI RFA with the plan to proceed forward with a left in the future. Patient has been instructed to contact the clinic with any concerns before the next appointment. Dr. Wade has reviewed this note and agrees with this plan of care. This note was dictated using voice recognition software and make contain errors or omissions. [facility] Disclaimer: The information contained in this section may have been updated after the patient was seen, as this information can be updated by other users. Medical History Asthma Cataract SX TO CORRECT HTN (hypertension) Surgical History History of appendectomy History of History of cholecystectomy History of colonoscopy History of hysterectomy History of loop recorder History of tonsillectomy Status post spinal disc removal Family History Other Family history of hypertension Family history of myocardial infarction Social History (Updated 07/19/22 @ 10:10 by Anabel Brizuela LPN) Smoking Status
[2022-07-24 13:33] LABS: Amphetamine/Metha Screen,Urine Negative ng/ml (<1000); Barbiturates Screen,Urine Negative ng/ml (<200)
[2022-07-24 13:34] LABS: Benzodiazepines Screen,Urine Negative ng/ml (<200)
[2022-07-24 13:35] LABS: Cannabinoid Screen,Urine Negative ng/ml (<50)
[2022-07-24 13:36] LABS: Cocaine Screen,Urine Negative ng/ml (<300); Methadone Screen,Urine Negative ng/ml (<300)
[2022-07-24 13:39] LABS: Phencyclidine Screen,Urine Negative ng/ml (<25)
[2022-07-24 13:40] LABS: Opiate Screen,Urine Negative ng/ml (<300)
[2022-07-29 15:05] LABS: Opiates Negative (Cutoff=100); Oxycodone (GC/MS) 234 ng/mL (Cutoff=100); Oxymorphone (GC/MS) 201 ng/mL (Cutoff=100)
== END ==
PROVIDERS: PCP Internal Medicine Adolescent Medicine; Visit Provider Nurse Practitioner Family
DX: M54.16 Radiculopathy, lumbar region (principal); Z79.891 Long term (current) use of opiate analgesic; M46.1 Sacroiliitis, not elsewhere classified
CPT/HCPCS: 80305; 80361; 80365; 99212; G0463; G0480

== ENCOUNTER 2022-07-30 11:09 | Day surgery (SDC) | payer MEDICARE, OTHER, SELFPAY ==
[2022-07-30 11:21] VITALS: BP 139/71; PULSE 59; RESP 18; TEMP 36.8; O2SAT 99; BMI 23.0
[2022-07-30 11:32] VITALS: BP 137/72; PULSE 70; RESP 18; O2SAT 97
[2022-07-30 11:33] VITALS: BP 137/72; PULSE 70; RESP 18; O2SAT 97
--- NOTE | 2022-07-30 11:41 | EXP.PAIN.PRO ---
Procedure Date: 07/30/22 Time: 11:30 Anesthesiologist:: Matthieu Richardson CRNA Complications:: None Pre-procedure Diagnosis:: Chronic right sacroiliitis Post-procedure Diagnosis:: Same Indications for Procedure:: Patient is a pleasant 77-year-old female comes our clinic today for right sacroiliac joint radiofrequency ablation. She has had several diagnostic right sacroiliac blocks. Each block did provide her significant improvement lasting 2 to 3 weeks. Today she rates her pain 8/10. Procedure Details:: Details of the procedure were explained to the patient. The patient was taken the procedure room placed in the prone position on the fluoroscopy table. The area over the right lower lumbar and sacral area was cleaned using chlorhexidine as a cleansing solution. Using fluoroscopy guidance markers were placed at the distal one third medial border of the sacroiliac joint. The skin and subcutaneous tissue was anesthetized using 1% lidocaine and 25-gauge needle. At this time to RFA needles were placed 1 cm medial to the lower one third sacroiliac joint. After negative motor and sensory stimulation. Both needles were injected after negative aspiration with 3 cc of 1% lidocaine and 20 mg of Depo-Medrol. Radiofrequency ablation probes were placed into the needles. The needles were confirmed again with fluoroscopy guidance. At this time both needles were engaged with radiofrequency ablation at 80 ?C for 120 seconds. [place] were removed. Band-Aid applied. Patient tolerated procedure without difficulty. There are no complications. Plan and Disposition:: Patient was discharged without incident.
[2022-07-30 11:42] VITALS: BP 152/68; PULSE 61; RESP 18; O2SAT 99
== END 2022-07-30 11:42 | disposition home or self-care (01) ==
PROVIDERS: PCP Internal Medicine Adolescent Medicine; Visit Provider Nurse Anesthetist, Certified Registered
DX: M46.1 Sacroiliitis, not elsewhere classified (principal)
CPT/HCPCS: 64625; J1040

== ENCOUNTER 2022-08-13 09:44 | Day surgery (SDC) | payer MEDICARE, OTHER, SELFPAY ==
[2022-08-13 09:55] VITALS: BP 126/75; PULSE 61; RESP 18; TEMP 36.7; O2SAT 100; BMI 23.0
[2022-08-13 09:59] VITALS: BP 141/72; PULSE 63; RESP 18; O2SAT 97
[2022-08-13 10:00] VITALS: BP 141/72; PULSE 63; RESP 18; O2SAT 97
[2022-08-13 10:10] VITALS: BP 130/55; PULSE 61; RESP 18; O2SAT 100
--- NOTE | 2022-08-13 10:23 | EXP.PAIN.PRO ---
Procedure Date: 08/13/22 Time: 10:00 Anesthesiologist:: Matthieu Richardson CRNA Complications:: None Pre-procedure Diagnosis:: Left sacroiliitis Post-procedure Diagnosis:: Same. Indications for Procedure:: Very pleasant 77-year-old female returns our clinic today for a left sacroiliac joint radiofrequency ablation. She had the right done 1 month ago with significant improvement. She describes the left posterior hip pain as constant, dull, aching. She rates it 01/27 Procedure Details:: Details of the procedure were explained to the patient. The patient was taken the procedure room placed in the prone position on the fluoroscopy table. The area over the left lower lumbar and sacral area was cleaned using chlorhexidine as a cleansing solution. Using fluoroscopy guidance markers were placed at the distal one third medial border of the left sacroiliac joint. The skin and subcutaneous tissue was anesthetized using 1% lidocaine and 25-gauge needle. At this time to RFA needles were placed 1 cm medial to the lower one third of the left sacroiliac joint. After negative motor and sensory stimulation. Both needles were injected after negative aspiration with 3 cc of 1% lidocaine and 20 mg of Depo-Medrol. Radiofrequency ablation probes were placed into the needles. The needles were confirmed again with fluoroscopy guidance. At this time both needles were engaged with radiofrequency ablation at 80 ?C for 120 seconds. [place] were removed. Band-Aid applied. Patient tolerated procedure without difficulty. There are no complications. Plan and Disposition:: Patient was discharged without incident.
== END 2022-08-13 10:10 | disposition home or self-care (01) ==
LOC: SC.PAINP 09:45
PROVIDERS: PCP Internal Medicine Adolescent Medicine; Visit Provider Nurse Anesthetist, Certified Registered
DX: M46.1 Sacroiliitis, not elsewhere classified (principal)
CPT/HCPCS: 64625; J1040

== ENCOUNTER → 2022-09-02 09:32 | Outpatient (POV) | payer MEDICARE, OTHER, SELFPAY ==
--- NOTE | 2022-09-02 10:05 | EXP.PAIN.SOA ---
[facility] Pain Management SOAP Note Subjective:: Patient is a pleasant 77-year-old female who presents today for follow-up of left sacroiliac RFA on 08/13/2022. We are currently treating the patient for bilateral sacroiliitis, low back pain, right leg pain. Today the patient rates her pain a 0 out of 10. Patient states she has had significant improvement of at least 80 to 90% following this procedure. Patient does states she will occasionally still have some soreness however she does believe this is related to arthritis. Patient is currently managed with tizanidine 4 mg at bedtime and compounding cream. Patient does state that she has noticed significant improvement with the muscle relaxer and is requesting a refill at today's visit. Her Ulisses has been reviewed and appropriate. Review of Systems: General: No recent weight changes, no fever, no sleep disturbances Respiratory: No cough, no shortness of air, no recurring pulmonary infections Cardiovascular/peripheral vascular: No chest pain, no palpitations, no edema, no shortness of breath Gastrointestinal: No new onset incontinence, normal bowel movements reported Genitourinary: No new onset incontinence Musculoskeletal: Low back pain Psychiatric: [Normal mood/affect] Neurological: [Denies weakness in extremities], [denies balance issues] Objective:: Physical Exam: General: Alert and oriented x3, no acute distress, pleasant and cooperative Lungs: Respirations even and unlabored, symmetrical chest expansion Eyes: PERRL Musculoskeletal: Flexion and extension of lumbar [spine] somewhat guarded secondary to pain, [antalgic gait noted] Neurological: Speech clear, no gross sensory deficit Assessment:: Bilateral sacroiliitis, low back pain, right leg pain Plan:: Patient has had significant improvement following her lumbar RFA and does not require any additional injective therapy. I will refill the patient's tizanidine 4 mg at bedtime and provide a 1 month supply of this medication. Patient will return to clinic in 1 month for reevaluation of symptoms, medication refill and follow-up. Patient has been instructed to contact the clinic with any concerns before the next appointment. Dr. Wade has reviewed this note and agrees with this plan of care. This note was dictated using voice recognition software and make contain errors or omissions. [facility] Disclaimer: The information contained in this section may have been updated after the patient was seen, as this information can be updated by other users. Medical History Asthma Cataract SX TO CORRECT HTN (hypertension) Surgical History History of appendectomy History of History of cholecystectomy History of colonoscopy History of hysterectomy History of loop recorder History of tonsillectomy Status post spinal disc removal Family History Other Family history of hypertension Family history of myocardial infarction Social History Smoking Status: Never smoker second hand exposure: No alcohol intake: current substance use type: denies use current occupational status: retired Travel in the last 8 weeks: None household members: significant other and none housing: house education level: high school current occupational exposures/hazards: No caffeine: Yes special bimal needs: No agree to transfusion: No do you feel safe at home: Yes victim of physical abuse: No victim of emotional abuse: No victim of sexual abuse: No would you like helpful sources: No
[2022-09-02 10:38] VITALS: BP 126/71; PULSE 92; RESP 18; O2SAT 98; BMI 23.0
== END ==
PROVIDERS: PCP Internal Medicine Adolescent Medicine; Visit Provider Nurse Practitioner Family
DX: M46.1 Sacroiliitis, not elsewhere classified (principal); M54.50 Low back pain, unspecified; M79.604 Pain in right leg
CPT/HCPCS: 99212; G0463

== ENCOUNTER → 2022-09-27 10:44 | Outpatient (CLI) | payer MEDICARE, OTHER, SELFPAY ==
--- NOTE | 2022-09-27 10:45 | CA_ITS ---
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,CP,SOA,LOOP RECORDER,HTN,HLD 2D Dimensions LVOT 2.16 cm (M/F) 1.5-2.5 LA Volume 37.40 mL LA Volume Index 22.94 mL/m2 (M/F) 16-34 M-Mode Dimensions RVDd 2.65 cm (0.9-2.6) LA Diam 3.56 cm (1.9-4.0) LVDd 5.53 cm (3.5-5.7) Ao Diam 2.69 cm (2.0-3.7) LVDs 3.34 cm (3.5-5.7) IVSd 0.72 cm (0.6-1.1) PWd 0.64 cm (0.6-1.1) EF (Teich) 69.60% FS 39.60% EDV (Teich) 149.30 mL TAPSE 3.01 (<1.7) ESV (Teich) 45.40 mL LV Diastology E Decel Time 230.00 (160-240 msec) E/A Ratio 0.9 MED E' 8.90 (< 7 cm/sec) E'/MED E' Ratio 9.55 (>14) LAT E' 10.20 (<10 cm/sec) E/LAT E' Ratio 8.33 (>14) Aortic Valve AI PHT 1305.00 ms AO Peak GR. 8.40 mmHg Mitral Valve MV E Max Brian. 85.00 (40-130 cm/s) MV A Velocity 91.00 (40-130 cm/s) E/A Ratio 0.94 MV Decel. Time 230.00 (160-240 ms) MV PHT 67.00 ms Pulmonary Valve PV Peak Velocity 78.00 (50-150 cm/s) Tricuspid Valve TR P. Velocity 210.00 cm/s RAP Estimate 10.00 mmHg RVSP 27.60 mmHg Left Ventricle Left atrium is mildly enlarged, left ventricle is normal size mild concentric left ventricular hypertrophy, estimated ejection fraction 55% with no regional wall motion abnormality, grade 1 diastolic dysfunction seen without tissue Doppler evidence of raise left atrial pressure. Right Ventricle Right atrium and right ventricular normal size and contractility. Aortic Valve Aortic valve is thickened and calcified without aortic stenosis, there is mild aortic insufficiency. Mitral Valve Mitral valve leaflets are minimally thickened, there is mild prolapse of the posterior mitral leaflet, there is no mitral stenosis, there is mitral regurgitation present which cannot be quantified from the study. Tricuspid Valve Tricuspid valve grossly normal, there is mild tricuspid regurgitation, tricuspid regurgitation jet velocity is inadequate for calculation of the right ventricular systolic pressure. Pulmonic Valve Pulmonic valve is poorly visualized. Great Vessels Aortic root is normal size. Inferior vena cava is mildly dilated with less than 50% inspiratory collapse. Pericardium No significant pericardial effusion noted. Conclusion 1. Mildly enlarged left atrium, normal left ventricular size, estimated ejection fraction 55% with no regional wall motion abnormality, grade 1 diastolic dysfunction seen without tissue Doppler evidence of late left atrial pressure. 2. Thickened and calcified aortic valve without aortic stenosis, there is mild aortic insufficiency. 3. Mild mitral valve prolapse of the posterior mitral leaflet, there is mitral regurgitation present which is difficult to quantify from the study. 4. No significant pericardial effusion noted. 5. Inferior vena cava is mildly dilated with less than 50% inspiratory collapse. Electronically signed by : Anthony Moscoso MD 09/27/2022 13:13:19
--- NOTE | 2022-09-27 10:45 | CA_ITS ---
FINAL REPORT TECHNIQUE: Color Doppler, duplex Doppler and singh scale sonography of the bilateral neck arterial vasculature was performed. Velocities were measured in the carotid arteries. Stenosis evaluation based on the validated velocity criteria. CLINICAL HISTORY: SYNCOPE,DIZZINESS,HTN,HLD COMPARISON: 10/23/2020 FINDINGS: The peak systolic velocity of the right common carotid artery is 63 cm/s. The peak systolic velocity of the right internal carotid artery is 81 cm/s and end diastolic velocity 20 cm/s. The ICA/CCA ratio is 1.3. A mild amount of plaque is present. The right external carotid artery is patent. The right vertebral artery is patent with antegrade flow. The peak systolic velocity of the left common carotid artery is 89 cm/s. The peak systolic velocity of the left internal carotid artery is 107 cm/s and end diastolic velocity 43 cm/s. The ICA/CCA ratio is 1.2. A mild amount of plaque is present. The left external carotid artery is patent.The left vertebral artery is patent with antegrade flow. IMPRESSION: Less than 50% bilateral carotid stenosis, similar to the prior exam. Bilateral patent vertebral arteries with antegrade flow. If indicated, CTA or MRA could further evaluate. Reviewed, Interpreted and Dictated by Elliot Strickland III, MD Transcribed by Jonna Michel Authenticated and . [facility]
== END ==
PROVIDERS: PCP Internal Medicine Adolescent Medicine; Visit Provider Physician Assistant
DX: E78.2 Mixed hyperlipidemia (principal); I10 Essential (primary) hypertension; I25.10 Atherosclerotic heart disease of native coronary artery without angina pectoris; I34.0 Nonrheumatic mitral (valve) insufficiency; I34.1 Nonrheumatic mitral (valve) prolapse; I65.21 Occlusion and stenosis of right carotid artery; R06.02 Shortness of breath; R07.89 Other chest pain; R55 Syncope and collapse
CPT/HCPCS: 93306; 93880

== ENCOUNTER → 2022-09-30 09:28 | Outpatient (POV) | payer MEDICARE, OTHER, SELFPAY ==
--- NOTE | 2022-09-30 09:55 | EXP.PAIN.SOA ---
[facility] Pain Management SOAP Note Subjective:: Patient is a pleasant 77-year-old female who presents today for 1 month follow-up. We are currently treating the patient for bilateral sacroiliitis, low back pain, right leg pain. Today she rates her pain a 0 out of 10. Patient did previously have a left SI RFA at the end of July that provided upwards of 90% relief and she states today that it still continues to give additional pain relief. Patient denies any new trauma or injury. Patient denies any change location or type of pain she experiences. Patient is currently managed with tizanidine 4 mg at bedtime and compounding cream patient denies any side effects from these medications. Her Ulisses is [id number]. Its been reviewed and appropriate. Review of Systems: General: No recent weight changes, no fever, no sleep disturbances Respiratory: No cough, no shortness of air, no recurring pulmonary infections Cardiovascular/peripheral vascular: No chest pain, no palpitations, no edema, no shortness of breath Gastrointestinal: No new onset incontinence, normal bowel movements reported Genitourinary: No new onset incontinence Musculoskeletal: Low back pain Psychiatric: [Normal mood/affect] Neurological: [Denies weakness in extremities], [denies balance issues] Objective:: Physical Exam: General: Alert and oriented x3, no acute distress, pleasant and cooperative Lungs: Respirations even and unlabored, symmetrical chest expansion Eyes: PERRL Musculoskeletal: Flexion and extension of lumbar [spine] somewhat guarded secondary to pain, [antalgic gait noted] Neurological: Speech clear, no gross sensory deficit Assessment:: Bilateral sacroiliitis, low back pain, right leg pain Plan:: Patient continues to get significant relief following her left SI RFA and does not require any additional injective therapy. I will refill her tizanidine 4 mg at bedtime and provide a 3-month supply of this medication. Patient will return to clinic in 3 months for reevaluation of symptoms, medication refill and follow-up. Patient has been instructed to contact the clinic with any concerns before the next appointment. Dr. Wade has reviewed this note and agrees with this plan of care. This note was dictated using voice recognition software and make contain errors or omissions. [facility] Disclaimer: The information contained in this section may have been updated after the patient was seen, as this information can be updated by other users. Medical History (Updated 09/19/22 @ 09:19 by Kasandra Hardwick RN) Asthma Cataract HTN (hypertension) Syncope Surgical History History of appendectomy History of History of cholecystectomy History of colonoscopy History of hysterectomy History of loop recorder History of tonsillectomy Status post spinal disc removal Family History Other Family history of hypertension Family history of myocardial infarction Social History Smoking Status: Never smoker second hand exposure: No alcohol intake: current substance use type: denies use current occupational status: retired Travel in the last 8 weeks: None household members: significant other and none housing: house education level: high school current occupational exposures/hazards: No caffeine: Yes special bimal needs: No agree to transfusion: No do you feel safe at home: Yes victim of physical abuse: No victim of emotional abuse: No victim of sexual abuse: No would you like helpful sources: No
[2022-09-30 10:07] VITALS: BP 101/45; PULSE 53; RESP 18; O2SAT 98; BMI 23.0
== END | disposition home or self-care (01) ==
PROVIDERS: PCP Internal Medicine Adolescent Medicine; Visit Provider Nurse Practitioner Family
DX: M46.1 Sacroiliitis, not elsewhere classified (principal); M54.50 Low back pain, unspecified; M79.604 Pain in right leg
CPT/HCPCS: 99212; G0463

== ENCOUNTER → 2022-12-26 08:25 | Outpatient (POV) | payer MEDICARE, OTHER, SELFPAY ==
--- NOTE | 2022-12-26 08:37 | EXP.PAIN.SOA ---
[facility] Pain Management SOAP Note Subjective:: Patient is a pleasant 77-year-old female who presents today for medication refill and follow-up.? We are currently treating the patient for bilateral sacroiliitis, low back pain, right leg pain.? Today she rates her pain a 0 out of 10.? She states she continues to get relief from her left SI RFA from July that provided upwards of 90% relief. She states she will occasionally get a pain when sitting for prolonged periods or occasionally when she is laying down however overall she continues to get significant relief and has much better overall function than prior to this procedure. She is currently managed with tizanidine 4 mg at bedtime and compounding cream patient denies any side effects from these medications.? Her Ulisses is [id number].? Its been reviewed and appropriate. Review of Systems: General: No recent weight changes, no fever, no sleep disturbances Respiratory: No cough, no shortness of air, no recurring pulmonary infections Cardiovascular/peripheral vascular: No chest pain, no palpitations,? no edema, no shortness of breath Gastrointestinal: No new onset incontinence, normal bowel movements reported Genitourinary: No new onset incontinence Musculoskeletal: Low back pain Psychiatric: [Normal mood/affect] Neurological: [Denies weakness in extremities], [denies balance issues] Objective:: Physical Exam: General: Alert and oriented x3, no acute distress, pleasant and cooperative Lungs: Respirations even and unlabored, symmetrical chest expansion Eyes: PERRL Musculoskeletal: Flexion and extension of lumbar [spine] somewhat guarded secondary to pain, [antalgic gait noted] Neurological: Speech clear, no gross sensory deficit Assessment:: Bilateral sacroiliitis, low back pain, right leg pain Plan:: I will refill the patient's tizanidine 4 mg at bedtime and provide a 6-month supply of this medication. Patient will return to clinic in 6 months for reevaluation of symptoms and medication refill. Patient has been instructed to contact the clinic with any concerns before the next appointment. Dr. Wade has reviewed this note and agrees with this plan of care. This note was dictated using voice recognition software and make contain errors or omissions. [facility] Disclaimer: The information contained in this section may have been updated after the patient was seen, as this information can be updated by other users. Medical History Asthma Cataract SX TO CORRECT HTN (hypertension) Syncope Surgical History History of appendectomy History of History of cholecystectomy History of colonoscopy History of hysterectomy History of loop recorder History of tonsillectomy Status post spinal disc removal Family History Other Family history of hypertension Family history of myocardial infarction Social History Smoking Status: Never smoker second hand exposure: No alcohol intake: current substance use type: denies use current occupational status: retired Travel in the last 8 weeks: None household members: significant other and none housing: house education level: high school current occupational exposures/hazards: No caffeine: Yes special bimal needs: No agree to transfusion: No do you feel safe at home: Yes victim of physical abuse: No victim of emotional abuse: No victim of sexual abuse: No would you like helpful sources: No
[2022-12-26 09:00] VITALS: BP 124/74; PULSE 69; RESP 18; O2SAT 97; BMI 23.0
== END | disposition home or self-care (01) ==
PROVIDERS: PCP Internal Medicine Adolescent Medicine; Visit Provider Nurse Practitioner Family
DX: M46.1 Sacroiliitis, not elsewhere classified (principal); M54.50 Low back pain, unspecified; M79.604 Pain in right leg
CPT/HCPCS: 99212; G0463

== ENCOUNTER → 2023-04-07 13:36 | Outpatient (CLI) | payer MEDICARE, OTHER, SELFPAY ==
--- NOTE | 2023-04-07 14:23 | CT_ITS ---
FINAL REPORT TECHNIQUE: The patient was injected with IV contrast. Axial images were obtained of the chest by computed tomography. Precontrast images were also obtained. This study was performed with techniques to keep radiation doses as low as reasonably achievable (ALARA). Individualized dose reduction techniques using automated exposure control or adjustment of mA and/or kV according to the patient's size were employed. CLINICAL HISTORY: COUGH,PULMONARY NODULE COMPARISON: 03/13/2022 FINDINGS: CT OF THE CHEST WITH AND WITHOUT CONTRAST: Mediastinal vascularity is well opacified. There are calcified right paratracheal and precarinal lymph nodes. Again seen is a mass along the left posterior heart border measuring 1.7 cm in greatest dimension on image 53 of series 4. This demonstrates mean attenuation value of 3 Hounsfield units and may represent a small cyst. The lungs are clear. Limited images of the upper abdomen demonstrate no acute findings. The gallbladder is absent. IMPRESSION: Mass along left posterior heart border likely represents a small cyst. Reviewed, Interpreted and Dictated by Karl Laws MD Transcribed by Amanda De Jesus Authenticated and [facility]
[2023-04-07 14:35] LABS: Blood Urea Nitrogen 24 mg/dl (7-17); Estimated Glomerular Filt Rate 61 ml/min (>60); GFR (African American) 74 ML/MIN (>60)
== END ==
PROVIDERS: PCP Internal Medicine Adolescent Medicine; Visit Provider Internal Medicine Adolescent Medicine
DX: R05.2 Subacute cough (principal); R91.1 Solitary pulmonary nodule
CPT/HCPCS: 36415; 71270; 82565; 84520; Q9967

== ENCOUNTER → 2023-07-09 08:44 | Outpatient (POV) | payer MEDICARE, OTHER, SELFPAY ==
--- OUTSIDE RECORDS SUMMARY | 2023-07-09 08:47 | XMS_ITS | Patient Health Record ---
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 Name Role Phone Chau Durham Primary Care Provider ALLERGIES Allergen (clinical drug ingredient) Drug/Non Drug Allergy documented on EMR Reaction Allergy Type Onset Date Status Penicillin Unknown Drug Allergy Active RESULTS Component Value Reference Range Notes M-BUN & Creatinine Reviewed date:04/07/2023 06:10:48 PM Interpretation: Performing Lab: Notes/Report: BUN 24 7-17 mg/dl CREATT 0.90 0.52-1.04 mg/dl GFRAA 74 >60 ML/MIN EGFR 61 >60 ml/min CT Scan : Chest, With & With out Contrast Reviewed date:04/11/2023 12:47:03 PM Interpretation: Performing Lab: Notes/Report: TSH W/REFLEX TO FT4 ([id number]) Reviewed date:03/17/2023 10:13:30 AM Interpretation: Performing Lab:[facility] [id number] [id number] Monico Dumont Notes/Report: NON-FASTING; NON-FASTING; NON-FASTING; NON-FASTING FASTING:YES FASTING: YES NON-FASTING; NON-FASTING; NON-FASTING; NON-FASTING FASTING:YES FASTING: YES TSH W/REFLEX TO FT4 11.75 0.40-4.50 mIU/L T4, FREE 1.2 0.8-1.8 ng/dL CBC (INCLUDES DIFF/PLT) ([id number]) Reviewed date:03/17/2023 10:13:30 AM Interpretation: Performing Lab:[facility], [facility] [id number] [id number] Monico Dumont Notes/Report: NON-FASTING; NON-FASTING; NO
--- NOTE | 2023-07-09 09:04 | EXP.PAIN.SOA ---
[facility] Pain Management SOAP Note Subjective:: Patient is a pleasant 78-year-old female who presents today for follow-up. We are currently treating the patient for chronic bilateral sacroiliitis, low back pain, right leg pain. Today she rates her pain a 10 out of 10. Patient states her pain is all over her low back and into her bilateral hips. Patient does describe this as an aching, throbbing sensation with some numbness. Patient does have a history of chronic sacroiliitis and did have RFA bilaterally done in July of this year. Patient did have approximately 90% relief from each of these procedures and has lasted up until the last month. Patient states she is interested in repeating these prior procedures because they did provide such significant improvement. Patient does state the pain is interfering with her ability perform activities of daily living. She does also state that she is now experiencing bilateral knee pain. Patient states that she has never had any problems before however she is on her feet regularly for her job. She states that she has never had any previous knee surgery and that she has been experiencing more swelling in the right knee. Patient is currently managed with tizanidine 4 mg at bedtime and compounded cream. Patient states she does use the cream on her knees for some improvement. Her Ulisses has been reviewed and is appropriate. Injections: August 13, 2022?left SI RFA 90% July 30, 2022 right SI RFA 90% 05/24/2022 bilateral SI injection 80% 04/09/2022 bilateral SI injections 60% 02/04/2020 bilateral SI injections 90% 05/25/2019 bilateral SI injections Review of Systems: General: No recent weight changes, no fever, no sleep disturbances Respiratory: No cough, no shortness of air, no recurring pulmonary infections Cardiovascular/peripheral vascular: No chest pain, no palpitations, no edema, no shortness of breath Gastrointestinal: No new onset incontinence, normal bowel movements reported Genitourinary: No new onset incontinence Musculoskeletal: Low back pain, bilateral hip pain Psychiatric: [Normal mood/affect] Neurological: [Denies weakness in extremities], [denies balance issues] Objective:: Physical Exam: General: Alert and oriented x3, no acute distress, pleasant and cooperative Lungs: Respirations even and unlabored, symmetrical chest expansion Eyes: PERRL Musculoskeletal: Flexion and extension of lumbar [spine] somewhat guarded secondary to pain, [antalgic gait noted] point tenderness along bilateral SIs with positive bilateral Rita's, Sindhu's, Gaenslen's, compression and distraction exam Neurological: Speech clear, no gross sensory deficit Assessment:: Chronic bilateral sacroiliitis, low back pain, right leg pain, bilateral knee pain Plan:: Patient is experiencing worsening pain in her low back and hips with limited range of motion. Patient did have point tenderness along her bilateral SIs and a positive bilateral Rita's, Sindhu's, Gaenslen's, compression and distraction exam. I have discussed with the patient that she may benefit from repeat SI RFA procedures. The risk and benefits of these procedures were explained to the patient and she would like to proceed forward with this plan of care. Patient does state that her right seems to be the worst side and would like to start with this. I have counseled the patient that we will plan on also repeating the left SI RFA following her right. I have also discussed in future she may benefit from intra-articular knee injections. I will send in a 7-day dose of prednisone 20 mg twice daily. We will follow-up with this after her SI RFAs. Patient did previously have 90% improvement lasting approximately 10 months. We will schedule the patient for a right SI RFA. This will be done under fluoroscopic guidance for accuracy and safety. Patient has been instructed to contact the clinic with any concerns before the next appointment. Dr. Wade has reviewed this note and agrees w
[2023-07-09 09:18] VITALS: BP 147/59; PULSE 62; RESP 18; O2SAT 97; BMI 23.9
== END | disposition home or self-care (01) ==
PROVIDERS: PCP Internal Medicine Adolescent Medicine; Visit Provider Nurse Practitioner Family
DX: M46.1 Sacroiliitis, not elsewhere classified (principal); G89.29 Other chronic pain; M54.50 Low back pain, unspecified; M79.604 Pain in right leg; M25.561 Pain in right knee; M25.562 Pain in left knee
CPT/HCPCS: 99212; G0463

== ENCOUNTER 2023-07-29 13:21 | Day surgery (SDC) | payer MEDICARE, OTHER, SELFPAY ==
[2023-07-29 13:35] VITALS: BP 137/69; PULSE 65; RESP 16; O2SAT 97; BMI 23.0
[2023-07-29 13:41] VITALS: BP 197/71; PULSE 65; RESP 18; O2SAT 98
[2023-07-29 13:45] VITALS: BP 149/73; PULSE 65; RESP 16; O2SAT 97
[2023-07-29 13:46] VITALS: BP 197/71; PULSE 65; RESP 18; O2SAT 98
--- NOTE | 2023-07-29 13:47 | EXP.PAIN.PRO ---
Procedure Date: 07/29/23 Time: 13:45 Anesthesiologist:: Matthieu Richardson CRNA Complications:: None Pre-procedure Diagnosis:: Chronic right sacroiliitis. Chronic right posterior hip pain. Post-procedure Diagnosis:: Same. Indications for Procedure:: Patient is a pleasant 78-year-old female that comes our clinic today for right sacroiliac joint radiofrequency ablation. Patient has had significant improvement terms of her overall right low lumbar back pain and right posterior hip pain with previous sacroiliac joint blocks. She rates her pain today 7/10. Procedure Details:: Details of the procedure were explained to the patient. The patient was taken the procedure room placed in the prone position on the fluoroscopy table. The area over the right lower lumbar and sacral area was cleaned using chlorhexidine as a cleansing solution. Using fluoroscopy guidance markers were placed at the distal one third medial border of the sacroiliac joint. The skin and subcutaneous tissue was anesthetized using 1% lidocaine and 25-gauge needle. At this time to RFA needles were placed 1 cm medial to the lower one third sacroiliac joint. After negative motor and sensory stimulation. Both needles were injected after negative aspiration with 3 cc of 1% lidocaine and 20 mg of Depo-Medrol. Radiofrequency ablation probes were placed into the needles. The needles were confirmed again with fluoroscopy guidance. At this time both needles were engaged with radiofrequency ablation at 80 ?C for 120 seconds. [place] were removed. Band-Aid applied. Patient tolerated procedure without difficulty. There are no complications. Plan and Disposition:: Patient was discharged without incident.
[2023-07-29] MEDS: BUPIVACAINE 0.25% 10ML INJ 25 MG IJ (13:52)
[2023-07-29] MEDS: methylPREDNISolone ACETATE 80MG/ML VIAL 80 MG (13:52)
[2023-07-29] MEDS: LIDOCAINE 1% 5ML PF VIAL 15 ML (13:52)
== END 2023-07-29 13:45 | disposition home or self-care (01) ==
PROVIDERS: PCP Internal Medicine Adolescent Medicine; Visit Provider Nurse Anesthetist, Certified Registered
DX: M46.1 Sacroiliitis, not elsewhere classified (principal); M25.551 Pain in right hip; G89.29 Other chronic pain
CPT/HCPCS: 64625; J1040

== ENCOUNTER → 2023-08-13 13:28 | Outpatient (POV) | payer MEDICARE, OTHER, SELFPAY ==
--- NOTE | 2023-08-13 13:32 | EXP.PAIN.SOA ---
[facility] Pain Management SOAP Note Subjective:: Patient is a pleasant 78-year-old female who presents today for follow-up of right SI RFA on 07/29/2023. We are currently treating the patient for chronic bilateral sacroiliitis, low back pain, right leg pain. Today she rates her pain a 0 out of 10. Patient denies any new trauma or injury. Patient states she has had at least 90 to 100% relief following this injection. She states that she has been able to increase her activity with decreased pain symptoms and feels overall more functional. Patient does state that even her left knee pain has completely gone away and that she still has some in the right but it seems better as well. Patient is currently managed with tizanidine 4 mg at bedtime and compounded cream. Her Ulisses has been reviewed and is appropriate. Injections: July 29, 2023?right SI RFA August 13, 2022?left SI RFA 90% July 30, 2022 right SI RFA 90% 05/24/2022 bilateral SI injection 80% 04/09/2022 bilateral SI injections 60% 02/04/2020 bilateral SI injections 90% 05/25/2019 bilateral SI injections Review of Systems: General: No recent weight changes, no fever, no sleep disturbances Respiratory: No cough, no shortness of air, no recurring pulmonary infections Cardiovascular/peripheral vascular: No chest pain, no palpitations, no edema, no shortness of breath Gastrointestinal: No new onset incontinence, normal bowel movements reported Genitourinary: No new onset incontinence Musculoskeletal: Low back pain, right knee pain Psychiatric: [Normal mood/affect] Neurological: [Denies weakness in extremities], [denies balance issues] Objective:: Physical Exam: General: Alert and oriented x3, no acute distress, pleasant and cooperative Lungs: Respirations even and unlabored, symmetrical chest expansion Eyes: PERRL Musculoskeletal: Flexion and extension of lumbar [spine] somewhat guarded secondary to pain, [antalgic gait noted] Neurological: Speech clear, no gross sensory deficit Assessment:: Low back pain, right leg pain, chronic bilateral sacroiliitis Plan:: Patient has had significant improvement following her right SI RFA and does not require any additional injection therapy at this time. Patient will return to clinic in 1 month for reevaluation of symptoms and plan of care. Patient has been instructed to contact the clinic with any concerns before the next appointment. Dr. Wade has reviewed this note and agrees with this plan of care. This note was dictated using voice recognition software and make contain errors or omissions. [facility] Disclaimer: The information contained in this section may have been updated after the patient was seen, as this information can be updated by other users. Medical History Asthma Cataract SX TO CORRECT HTN (hypertension) Syncope Surgical History History of appendectomy History of History of cholecystectomy History of colonoscopy History of hysterectomy History of loop recorder History of tonsillectomy Status post spinal disc removal Family History Other Family history of hypertension Family history of myocardial infarction Social History Smoking Status: Never smoker second hand exposure: No alcohol intake: current substance use type: denies use current occupational status: retired Travel in the last 8 weeks: None household members: significant other and none housing: house education level: high school current occupational exposures/hazards: No caffeine: Yes special bimal needs: No agree to transfusion: No do you feel safe at home: Yes victim of physical abuse: No victim of emotional abuse: No victim of sexual abuse: No would you like helpful sources: No
[2023-08-13 15:47] VITALS: BP 145/81; PULSE 72; RESP 18; O2SAT 98; BMI 23.0
== END ==
LOC: SC.PAIN 13:29
PROVIDERS: PCP Internal Medicine Adolescent Medicine; Visit Provider Nurse Practitioner Family
DX: M46.1 Sacroiliitis, not elsewhere classified (principal); M54.50 Low back pain, unspecified; G89.29 Other chronic pain; M79.604 Pain in right leg
CPT/HCPCS: 99212; G0463

== ENCOUNTER 2023-08-13 14:07 | Outpatient (CLI) | payer MEDICARE, OTHER, SELFPAY ==
--- NOTE | 2023-08-13 14:40 | US_ITS ---
FINAL REPORT CLINICAL HISTORY: THYROID NODULE COMPARISON: 03/13/2022 FINDINGS: THYROID ULTRASOUND: The right thyroid measures 3.2 x 1.2 x 1.2 cm in size. The left thyroid gland measures 2.9 x 0.8 x 0.9 cm in size. The isthmus of the thyroid gland measures 0.26 cm. The left lobe of the thyroid is diffusely heterogeneous but no focal nodule is seen. There is a nodule in the right lobe of the thyroid gland, that measures up to 9 mm in greatest diameter. This corresponds to the 1.7 cm nodule seen in February 2022. This nodule is solid, hypoechoic, and a TI-RADS category 4 nodule. IMPRESSION: The previously noted nodule in the right thyroid gland is smaller on today's examination, measuring up to 9 mm in size as opposed to 1.7 cm in size. This nodule is solid, hypoechoic, and a TI-RADS category 4 nodule. Due to size, follow-up is not required at this time. Reviewed, Interpreted and Dictated by Karl Laws MD Transcribed by Veda Rosas Authenticated and . [facility]
== END 2023-08-13 23:59 ==
LOC: RAD 14:08
PROVIDERS: PCP Internal Medicine Adolescent Medicine; Visit Provider Internal Medicine Adolescent Medicine
DX: E04.1 Nontoxic single thyroid nodule (principal)
CPT/HCPCS: 76536; 99212; G0463

== ENCOUNTER 2023-09-10 13:24 | Outpatient (POV) | payer MEDICARE, OTHER, SELFPAY ==
--- NOTE | 2023-09-10 14:25 | EXP.PAIN.SOA ---
[facility] Pain Management SOAP Note Subjective:: Patient is a pleasant 78-year-old female who presents today for follow-up. We are currently treating the patient for chronic bilateral sacroiliitis, low back pain, right leg pain, right knee pain. Today she rates her pain a 5 out of 10. Patient states her right knee is really giving her more problems. She does describe this as an aching, throbbing sensation that is worse with increased activity or ambulation. Patient does state that the pain does interfere with her ability perform activities of daily living such as cooking and cleaning. Patient denies ever having any previous injury to her right knee or previous surgery. Patient states that she does believe it is more related to wear and tear over the years. Patient is currently managed with tizanidine 4 mg at bedtime and compounded cream. Her Ulisses has been reviewed and is appropriate. Review of Systems: General: No recent weight changes, no fever, no sleep disturbances Respiratory: No cough, no shortness of air, no recurring pulmonary infections Cardiovascular/peripheral vascular: No chest pain, no palpitations, no edema, no shortness of breath Gastrointestinal: No new onset incontinence, normal bowel movements reported Genitourinary: No new onset incontinence Musculoskeletal: Right knee pain Psychiatric: [Normal mood/affect] Neurological: [Denies weakness in extremities], [denies balance issues] Objective:: Physical Exam: General: Alert and oriented x3, no acute distress, pleasant and cooperative Lungs: Respirations even and unlabored, symmetrical chest expansion Eyes: PERRL Musculoskeletal: Flexion and extension of right knee somewhat guarded secondary to pain, [antalgic gait noted] Neurological: Speech clear, no gross sensory deficit Assessment:: Chronic bilateral sacroiliitis, low back pain, right leg pain, right knee pain Plan:: Patient is experiencing worsening pain in her right knee with limited range of motion. I have discussed with patient that she may benefit from intra-articular knee injection. Risk and benefits were discussed with the patient and she would like to proceed forward with this plan of care. I have also discussed with the patient in future we may order more advanced imaging to rule out possible tear if she does not get significant relief with this injection. Patient will be scheduled for right knee intra-articular injection. Patient has been instructed to contact the clinic with any concerns before the next appointment. Dr. Wade has reviewed this note and agrees with this plan of care. This note was dictated using voice recognition software and make contain errors or omissions. [facility] Disclaimer: The information contained in this section may have been updated after the patient was seen, as this information can be updated by other users. Medical History Asthma Cataract SX TO CORRECT HTN (hypertension) Syncope Surgical History History of appendectomy History of History of cholecystectomy History of colonoscopy History of hysterectomy History of loop recorder History of tonsillectomy Status post spinal disc removal Family History Other Family history of hypertension Family history of myocardial infarction Social History Smoking Status: Never smoker second hand exposure: No alcohol intake: current substance use type: denies use current occupational status: retired Travel in the last 8 weeks: None household members: significant other and none housing: house education level: high school current occupational exposures/hazards: No caffeine: Yes special bimal needs: No agree to transfusion: No do you feel safe at home: Yes victim of physical abuse: No victim of emotional abuse: No victim of sexual abuse: No would you like helpful sources: No
[2023-09-10 14:38] VITALS: BP 158/92; PULSE 80; RESP 20; O2SAT 94; BMI 23.0
== END 2023-09-10 23:59 ==
PROVIDERS: PCP Internal Medicine Adolescent Medicine; Visit Provider Nurse Practitioner Family
DX: M46.1 Sacroiliitis, not elsewhere classified (principal); G89.29 Other chronic pain; M54.50 Low back pain, unspecified; M79.604 Pain in right leg; M25.561 Pain in right knee
CPT/HCPCS: 99212; G0463

== ENCOUNTER 2023-09-30 13:10 | Day surgery (SDC) | payer MEDICARE, OTHER, SELFPAY ==
[2023-09-30 13:23] VITALS: BP 144/93; PULSE 79; RESP 18; TEMP 36.7; O2SAT 99; BMI 23.0
[2023-09-30] MEDS: methylPREDNISolone ACETATE 80MG/ML VIAL 80 MG (13:42)
[2023-09-30 13:50] VITALS: BP 138/78; PULSE 83; RESP 18; O2SAT 98
[2023-09-30] MEDS: LIDOCAINE 1% 5ML PF VIAL 5 ML (13:52)
[2023-09-30] MEDS: BUPIVACAINE 0.25% 10ML INJ 25 MG IJ (13:53)
--- NOTE | 2023-09-30 14:02 | EXP.PAIN.PRO ---
Procedure Date: 09/30/23 Time: 13:25 Anesthesiologist:: Matthieu Richardson CRNA Complications:: None Pre-procedure Diagnosis:: DJD right knee. Chronic right knee pain. Post-procedure Diagnosis:: Same. Indications for Procedure:: Patient is a pleasant 78-year-old female comes our clinic today with right knee pain for intra-articular injection of the right knee. Knee pain intensifies with ambulation. Flexion extension increases pain as well. She rates her pain 7/10. Procedure Details:: Informed consent was obtained risk and benefits of the procedure were explained to the patient. Patient was taken the procedure room right knee was prepped using ChloraPrep. A 25-gauge needle was used to inject 10 mL bupivacaine 0.25% and Depo-Medrol 40 mg into right knee. The patient tolerated the procedure well with no complications. Plan and Disposition:: Patient was discharged without incident.
== END 2023-09-30 13:45 | disposition home or self-care (01) ==
LOC: SC.PAINP 13:11
PROVIDERS: PCP Internal Medicine Adolescent Medicine; Visit Provider Nurse Anesthetist, Certified Registered
DX: M17.11 Unilateral primary osteoarthritis, right knee (principal); M25.561 Pain in right knee; G89.29 Other chronic pain
CPT/HCPCS: 20610; J1040

== ENCOUNTER 2023-11-21 10:32 | Outpatient (POV) | payer MEDICARE, OTHER, SELFPAY ==
[2023-11-21 10:37] VITALS: BP 141/69; PULSE 64; RESP 16; O2SAT 99; BMI 22.1
--- NOTE | 2023-11-21 11:00 | A.OFFVIS_ITS ---
[facility] Pain Management SOAP Note Subjective:: Patient is a pleasant 78-year-old female who presents today for medication refill and follow-up of right knee intra-articular injection on 09/30/2023. Today she rates her pain a 5 out of 10. Patient denies any new trauma or injury. Patient states that her knee is a 0 out of 10 and that she has had 100% relief following the knee injection and it is still helping. Patient does states she has had a lot going on with her spouse that they have bone marrow cancer as well as heart issues. She states that initially he was scheduled for cataract surgery however they would not proceed forward with that due to A-fib which ultimately led to him being seen by the granite polisher machine who found a blockage. She states that they did come on Friday to see about having a heart cath however his platelets were too low due to the cancer treatments and so they are having to work around all these issues in order to get things done. Patient does state that sitting in a chair for longer than 4 hours on Friday and 1 has flared up her overall back pain into her bilateral hips. She describes this as an aching, throbbing sensation that is worse with prolonged positioning. She states the pain does interfere with her ability to perform activities of daily living. Patient does state that she feels like it really is related to her having to sit for so long on Friday and that is hoping that it will ease up in the next couple of days. She is currently managed with tizanidine 4 mg at bedtime and compounded cream. She denies any signs from this medication. Her Ulisses has been reviewed and is appropriate. Review of Systems: General: No recent weight changes, no fever, no sleep disturbances Respiratory: No cough, no shortness of air, no recurring pulmonary infections Cardiovascular/peripheral vascular: No chest pain, no palpitations, no edema, no shortness of breath Gastrointestinal: No new onset incontinence, normal bowel movements reported Genitourinary: No new onset incontinence Musculoskeletal: Low back pain, bilateral hip pain Psychiatric: [Normal mood/affect] Neurological: [Denies weakness in extremities], [denies balance issues] Objective:: Physical Exam: General: Alert and oriented x3, no acute distress, pleasant and cooperative Lungs: Respirations even and unlabored, symmetrical chest expansion Eyes: PERRL Musculoskeletal: Flexion and extension of lumbar [spine] somewhat guarded secondary to pain, [antalgic gait noted] point tenderness along bilateral SIs with positive bilateral Rita's, Sindhu's, Gaenslen's, compression and distraction exam Neurological: Speech clear, no gross sensory deficit Assessment:: Low back pain, bilateral sacroiliitis, right leg pain, right knee pain Plan:: Patient is experiencing worsening pain in her low back and bilateral hips with limited range of motion. Patient did have point tenderness on her SIs with a positive Rita's, Sindhu's, Gaenslen's, compression and distraction exam. I have discussed with the patient that she may benefit from repeat SI injections. Patient has had these injections in the past with significant relief lasting on average 2 to 3 months. Her last injection was done in July. At this time the patient would like to see if it eases up in the next few days. I have counseled her that she can call in the schedule this injection over the phone if anything changes or if does not get better. Due to her having a lot going on currently I will send in a 6-month supply of tizanidine 4 mg at at bedtime. I have counseled the patient that she can call us for her next follow-up appointment because she does have such a busy schedule with her 's medical treatments. Patient acknowledges understanding and agrees with this plan of care. Patient has been instructed to contact the clinic with any concerns before the next appointment. Dr. Wade has reviewed this note and agrees with this plan of care. This note was dictated using voice recognition software and make contain errors or omissions. [facility] Disclaimer: The information contained in this section may have been updated after the patient was seen, as this information can be updated by other users. Medical History Syncope Cataract SX TO CORRECT Asthma HTN (hypertension) Surgical History History of loop recorder History of appendectomy History of colonoscopy History of cholecystectomy History of tonsillectomy Status post spinal disc removal History of hysterectomy History of Family History Other Family history of hypertension Family history of myocardial infarction Social History Smoking Status: Never smoker second hand exposure: No alcohol intake: current alcohol intake frequency: a few times a month substance use type: denies use current occupational status: other Travel in the last 8 weeks: None household members: significant other and none housing: house education level: high school current occupational exposures/hazards: No caffeine: Yes special bimal needs: No agree to transfusion: No do you feel safe at home: Yes victim of physical abuse: No victim of emotional abuse: No victim of sexual abuse: No would you like helpful sources: No
== END 2023-11-21 23:59 | disposition home or self-care (01) ==
PROVIDERS: PCP Internal Medicine Adolescent Medicine; Visit Provider Nurse Practitioner Family
DX: M54.50 Low back pain, unspecified (principal); M46.1 Sacroiliitis, not elsewhere classified; M79.604 Pain in right leg; M25.561 Pain in right knee
CPT/HCPCS: 99212; G0463

== ENCOUNTER 2024-02-02 13:06 | Outpatient (POV) | payer MEDICARE, OTHER, SELFPAY ==
--- NOTE | 2024-02-02 13:17 | EXP.PAIN.SOA ---
[facility] Disclaimer: The information contained in this section may have been updated after the patient was seen, as this information can be updated by other users. Medical History Syncope Cataract SX TO CORRECT Asthma HTN (hypertension) Surgical History History of loop recorder History of appendectomy History of colonoscopy History of cholecystectomy History of tonsillectomy Status post spinal disc removal History of hysterectomy History of Family History Other Family history of hypertension Family history of myocardial infarction Social History Smoking Status: Never smoker second hand exposure: No alcohol intake: current alcohol intake frequency: a few times a month substance use type: denies use current occupational status: other Travel in the last 8 weeks: None household members: significant other and none housing: house education level: high school current occupational exposures/hazards: No caffeine: Yes special bimal needs: No agree to transfusion: No do you feel safe at home: Yes victim of physical abuse: No victim of emotional abuse: No victim of sexual abuse: No would you like helpful sources: No PM Subjective & Objective Subjective Subjective:: Patient is a pleasant 78-year-old female who presents today for medication refill and follow-up. Today she rates her pain a 9 out of 10. Patient denies any new trauma or injury. Patient is saying that she is experiencing worsening pain in her right knee with limited range of motion. Patient denies any new falls. She states that she does believe her last injection has officially worn off. Patient did have an intra-articular injection on September 29 that provided 100% relief with overall improved function. Patient does state that this did not really seem to wear off about 3 weeks ago. She is is back to having worsening pain and describes it as a constant aching, throbbing sensation that is worse with increased activity or ambulation. Patient does state the pain interferes with her ability perform activities of daily living such as cooking and cleaning. She does also state that her low back and hips are bothering her as well however her knee is worse. She is currently managed with tizanidine 4 mg at bedtime and compounded cream. She denies any signs from this medication. Her Ulisses has been reviewed and is appropriate. Review of Systems: General: No recent weight changes, no fever, no sleep disturbances Respiratory: No cough, no shortness of air, no recurring pulmonary infections Cardiovascular/peripheral vascular: No chest pain, no palpitations, no edema, no shortness of breath Gastrointestinal: No new onset incontinence, normal bowel movements reported Genitourinary: No new onset incontinence Musculoskeletal: Right knee pain Psychiatric: [Normal mood/affect] Neurological: [Denies weakness in extremities], [denies balance issues] Pain at rest (0-10 scale): 9 Objective Objective:: Physical Exam: General: Alert and oriented x3, no acute distress, pleasant and cooperative Lungs: Respirations even and unlabored, symmetrical chest expansion Eyes: PERRL Musculoskeletal: Flexion and extension of right knee somewhat guarded secondary to pain, [antalgic gait noted] Neurological: Speech clear, no gross sensory deficit Has patient had previous pain injection?: No Conservative treatment options previously tried: Home exercise plan Length of treatment: Longer than 12> weeks and Prescription medications Length of treatment: Longer than 12 weeks Meds Home Medications and Allergies Home Medications Medication Instructions Recorded Confirmed Type buspirone 10 mg tablet 10 mg PO TID Anxiety 12/01/18 11/21/23 History fluticasone 250 mcg-salmeterol 50 1 inh inhalation BID Allergy 12/01/18 11/21/23 History mcg/dose blistr powdr for symptoms inhalation (Advair Diskus) metoprolol tartrate 50 mg tablet 25 mg PO BID blood pressure 11/09/20 11/21/23 History duloxetine 30 mg capsule,delayed 30 mg PO DAILY MOOD 06/21/21 11/21/23 History release levothyroxine 137 mcg tablet 100 mcg PO DAILY THYROID 06/21/21 11/21/23 History losartan 100 See Rx Instructions .Route 07/04/23 11/21/23 Rx mg-hydrochlorothiazide 12.5 mg .COMPLEX blood pressure #90 tabs tablet prednisone 20 mg tablet 20 mg PO BID #14 tabs 07/09/23 11/21/23 Rx aspirin 81 mg tablet,delayed 81 mg PO DAILY 10/29/23 11/21/23 History release (Adult Aspirin Regimen) isosorbide mononitrate 30 mg 30 mg PO DAILY BLOOD PRESSURE #90 04/10/24 05/03/24 Rx tablet,extended release 24 hr tabs nitroglycerin 0.4 mg sublingual 0.4 mg sublingual Q5-15M PRN chest 10/29/23 11/21/23 Rx tablet pain #30 tabs tizanidine 4 mg tablet (Zanaflex) 4 mg PO HS MUSCLE RELAXER #90 tabs 11/21/23 Rx New Prescriptions to Start Prescriptions: Allergies Allergy/AdvReac Type Severity Reaction Status Date / Time Penicillins [PENICILLINS] Allergy Unknown I-RASH Verified 10/29/23 10:15 Assessment and Plan *Assessment and plan (1) Right knee pain: Status: Acute Category: Medical Code(s): M25.561 - Pain in right knee Plan Patient is experiencing worsening pain in her right knee with limited range of motion and point tenderness. I discussed with the patient that she may benefit from repeat intra-articular injection. Risk and benefits were discussed with the patient and she would like to proceed forward with this plan of care. Patient did previously get more than 3 months relief with the 100% improvement. I will also refill the patient's tizanidine. Patient will be scheduled for right knee intra-articular injection without fluoroscopy. Patient has tried and failed conservative treatment including continued at home stretching and exercise in between injections. Patient has been instructed to contact the clinic with any concerns before the next appointment. Dr. Wade has reviewed this note and agrees with this plan of care. This note was dictated using voice recognition software and make contain errors or omissions.
[2024-02-02 13:24] VITALS: BP 121/73; PULSE 68; RESP 16; O2SAT 99; BMI 21.2
== END 2024-02-02 23:59 | disposition home or self-care (01) ==
PROVIDERS: PCP Internal Medicine Adolescent Medicine; Visit Provider Nurse Practitioner Family
DX: M25.561 Pain in right knee (principal)
CPT/HCPCS: 99212; G0463

== ENCOUNTER 2024-02-10 13:10 | Day surgery (SDC) | payer MEDICARE, OTHER, SELFPAY ==
[2024-02-10 13:33] VITALS: BP 113/68; PULSE 71; RESP 18; TEMP 36.6; O2SAT 94; BMI 21.2
[2024-02-10] MEDS: BUPIVACAINE 0.25% 10ML INJ 25 MG IJ (13:45)
[2024-02-10] MEDS: LIDOCAINE 1% 5ML PF VIAL 5 ML (13:45)
[2024-02-10] MEDS: methylPREDNISolone ACETATE 80MG/ML VIAL 80 MG (13:45)
--- NOTE | 2024-02-10 13:53 | P.PCN_ITS ---
Procedure Date: 02/10/24 Time: 13:15 Anesthesiologist:: Matthieu Richardson CRNA Complications:: None Pre-procedure Diagnosis:: DJD right knee. Chronic right knee pain. Post-procedure Diagnosis:: Same. Indications for Procedure:: Patient is a pleasant 78-year-old female comes our clinic today for right intra- articular knee injection of cortisone. Patient reports right knee pain in the medial compartment. She reports pain intensifies with standing and/or ambulation. She rates her pain 7/10. Patient has responded very well to intra- articular cortisone in the past. Procedure Details:: Informed consent was obtained risk and benefits of the procedure were explained to the patient. Patient was taken the procedure room right knee was prepped using ChloraPrep. A 25-gauge needle was used to inject 10 mL bupivacaine 0.25% and Depo-Medrol 40 mg into each knee. The patient tolerated the procedure well with no complications. Plan and Disposition:: Patient was discharged without incident.
[2024-02-10 13:55] VITALS: BP 116/70; PULSE 71; RESP 18; O2SAT 100
== END 2024-02-10 13:56 | disposition home or self-care (01) ==
PROVIDERS: PCP Internal Medicine Adolescent Medicine; Visit Provider Nurse Anesthetist, Certified Registered
DX: M17.11 Unilateral primary osteoarthritis, right knee (principal); M25.561 Pain in right knee
CPT/HCPCS: 20610; J1010

== ENCOUNTER 2024-02-25 11:24 | Outpatient (POV) | payer MEDICARE, OTHER, SELFPAY ==
--- NOTE | 2024-02-25 11:36 | A.OFFVIS_ITS ---
[facility] Disclaimer: The information contained in this section may have been updated after the patient was seen, as this information can be updated by other users. Medical History Syncope Cataract SX TO CORRECT Asthma HTN (hypertension) Surgical History History of loop recorder History of appendectomy History of colonoscopy History of cholecystectomy History of tonsillectomy Status post spinal disc removal History of hysterectomy History of Family History Other Family history of hypertension Family history of myocardial infarction Social History Smoking Status: Never smoker second hand exposure: No alcohol intake: current alcohol intake frequency: a few times a month substance use type: denies use current occupational status: retired Travel in the last 8 weeks: None household members: significant other and none housing: house education level: high school current occupational exposures/hazards: No caffeine: Yes special bimal needs: No agree to transfusion: No do you feel safe at home: Yes victim of physical abuse: No victim of emotional abuse: No victim of sexual abuse: No would you like helpful sources: No PM Subjective & Objective Subjective Subjective:: Patient is a pleasant 78-year-old female who presents today for follow-up of right intra-articular knee injection on 02/10/2024. She does state today that her pain is a 0 out of 10. She states she has had 100% improvement and that this injection even helped her hip. Patient states she has been able to increase her activity with overall decreased pain and feels much more functiona l. Patient is prescribed compounded cream and tizanidine 4 mg at bedtime. She denies any side effects from this medication. She states that she does not need any refills at this time. Her Ulisses has been reviewed and is approved. Review of Systems: General: No recent weight changes, no fever, no sleep disturbances Respiratory: No cough, no shortness of air, no recurring pulmonary infections Cardiovascular/peripheral vascular: No chest pain, no palpitations, no edema, no shortness of breath Gastrointestinal: No new onset incontinence, normal bowel movements reported Genitourinary: No new onset incontinence Musculoskeletal: Low back pain Psychiatric: [Normal mood/affect] Neurological: [Denies weakness in extremities], [denies balance issues] Pain at rest (0-10 scale): 0 Objective Objective:: Physical Exam: General: Alert and oriented x3, no acute distress, pleasant and cooperative Lungs: Respirations even and unlabored, symmetrical chest expansion Eyes: PERRL Musculoskeletal: Flexion and extension of lumbar spine within normal limits Neurological: Speech clear, no gross sensory deficit Has patient had previous pain injection?: Yes Percent improvement in pain since last injection: 100% Conservative treatment options previously tried: Home exercise plan Length of treatment: Longer than 6 weeks Meds Home Medications and Allergies Home Medications ?Medication ?Instructions ?Recorded ?Confirmed ?Type buspirone 10 mg tablet 10 mg PO TID Anxiety 12/01/18 02/02/24 History fluticasone 250 mcg-salmeterol 50 1 inh inhalation BID Allergy 12/01/18 02/02/24 History mcg/dose blistr powdr for symptoms inhalation (Advair Diskus) metoprolol tartrate 50 mg tablet 25 mg PO BID blood pressure 11/09/20 02/02/24 History duloxetine 30 mg capsule,delayed 30 mg PO DAILY MOOD 06/21/21 02/02/24 History release levothyroxine 137 mcg tablet 100 mcg PO DAILY THYROID 06/21/21 02/02/24 History losartan 100 See Rx Instructions .Route 07/04/23 02/02/24 Rx mg-hydrochlorothiazide 12.5 mg .COMPLEX blood pressure #90 tabs tablet prednisone 20 mg tablet 20 mg PO BID #14 tabs 07/09/23 02/02/24 Rx aspirin 81 mg tablet,delayed 81 mg PO DAILY 10/29/23 02/02/24 History release (Adult Aspirin Regimen) isosorbide mononitrate 30 mg 30 mg PO DAILY BLOOD PRESSURE #90 10/29/23 02/02/24 Rx tablet,extended release 24 hr tabs nitroglycerin 0.4 mg sublingual 0.4 mg sublingual Q5-15M PRN chest 10/29/23 02/02/24 Rx tablet pain #30 tabs tizanidine 4 mg tablet (Zanaflex) 4 mg PO HS MUSCLE RELAXER #90 tabs 02/02/24 Rx New Prescriptions to Start Prescriptions: Allergies Allergy/AdvReac Type Severity Reaction Status Date / Time Penicillins [PENICILLINS] Allergy Unknown I-RASH Verified 10/29/23 10:15 Assessment and Plan *Assessment and plan (1) Low back pain: Status: Acute Qualifiers: Chronicity: chronic Back pain laterality: bilateral Sciatica presence: without sciatica Qualified Code(s): M54.50 - Low back pain, unspecified; G89.29 - Other chronic pain Category: Medical Code(s): M54.50 - Low back pain, unspecified Plan Patient has had significant improvement following her knee injection and does not require any additional injection therapy at this time. Patient will return to clinic in 3 months for reevaluation of symptoms and plan of care. Patient has been instructed to contact the clinic with any concerns before the next appointment. Dr. Wade has reviewed this note and agrees with this plan of care. This note was dictated using voice recognition software and make contain errors or omissions. All injections are used with Lidocaine or Bupivacaine and Depo Medrol.
[2024-02-25 12:00] VITALS: BP 139/73; PULSE 56; RESP 16; O2SAT 100; BMI 21.7
== END 2024-02-25 23:59 | disposition home or self-care (01) ==
LOC: SC.PAIN 11:25
PROVIDERS: PCP Internal Medicine Adolescent Medicine; Visit Provider Nurse Practitioner Family
DX: M54.50 Low back pain, unspecified (principal); G89.29 Other chronic pain; Z79.899 Other long term (current) drug therapy
CPT/HCPCS: 99212; G0463

== ENCOUNTER 2024-05-11 09:59 | Outpatient (CLI) | payer MEDICARE, OTHER, SELFPAY ==
--- NOTE | 2024-05-11 10:00 | CA_ITS ---
APPROVED REPORT EXAM: Comprehensive 2D, Doppler, and color-flow Echocardiogram District Manager [employer] Sales: Yvette Larry CRT Ht: 5 ft 3 in Wt: 125lbs BSA: 1.58 BP: 122/78 mmHg Indications: murmur, mvp, mr, ai, htn, hld, sob 2D Dimensions LA Volume 57.40 mL LA Volume Index 36.10 mL/m2 (M/F) 16-34 M-Mode Dimensions RVDd 3.47 cm (0.9-2.6) LA Diam 4.29 cm (1.9-4.0) LVDd 4.73 cm (3.5-5.7) LVDs 3.01 cm (3.5-5.7) IVSd 1.29 cm (0.6-1.1) PWd 0.93 cm (0.6-1.1) EF (Teich) 66.00% FS 36.40% EDV (Teich) 103.90 mL TAPSE 2.02 (<1.7) ESV (Teich) 35.30 mL LV Diastology E Decel Time 150 (160-240 msec) E/A Ratio 1.2 MED A' 13.20 cm/s LAT A' 7.00 cm/s Aortic Valve MARYELLEN Index 2.10 cm2/m2 AoV Peak Brian. 156.0 (50-130 cm/s) AI PHT 609.00 ms AO Peak GR. 9.70 mmHg AO Mean GR. 4.10 (<5 mmHg) AO VTI 32.0 (18-25 cm) MARYELLEN (VTI) 3.41 (2.5-4.5 cm2) Mitral Valve MV E Max Brian. 88.0 (40-130 cm/s) MV A Velocity 73.0 (40-130 cm/s) E/A Ratio 1.21 MV PHT 44.0 ms Pulmonary Valve PV Peak Velocity 87.0 (50-150 cm/s) Tricuspid Valve TR P. Velocity 211.00 cm/s RAP Estimate 10.00 mmHg RVSP 27.90 mmHg Left Ventricle The left ventricle is normal size. The left ventricular systolic function is normal. The left ventricular ejection fraction is within the normal range. There is increased LV wall thickness. There is normal LV segmental wall motion. Diastolic function is indeterminate. LVEF is 55%. Right Ventricle The right ventricle is normal size. The right ventricular systolic function is normal. Atria Left atrium is moderately dilated. The right atrium size is normal. There is no Doppler evidence of interatrial shunt. Aortic Valve The aortic valve is mildly thickened. There is no aortic valvular stenosis. Mild aortic regurgitation. Mitral Valve There is possible prolapse of the posterior MV leaflet. No evidence of mitral valve stenosis. Mild to moderate mitral regurgitation. The MR jet is eccentric and anteriorly directed. Tricuspid Valve Tricuspid valve is grossly normal in structure and function. Trace tricuspid regurgitation. RVSP is 20-25 mmHg. Pulmonic Valve The pulmonary valve is normal in structure. Trace pulmonic regurgitation. Great Vessels The aortic root is normal in size. The ascending aorta is not well-visualized. IVC is normal in size and collapses >50% with inspiration. Pericardium There is no pericardial effusion. Other Information Study Quality: Fair Conclusion Normal biventricular systolic function. Moderate LA dilation. Possible prolapse of the posterior MV leaflet. Mild to moderate MR. Mild AI. Electronically signed by : Hoa Flower MD 05/17/2024 15:10:13
== END 2024-05-11 23:59 | disposition home or self-care (01) ==
LOC: RT 09:59
PROVIDERS: PCP Internal Medicine Adolescent Medicine; Visit Provider Nurse Practitioner Family
DX: I34.1 Nonrheumatic mitral (valve) prolapse (principal); I34.0 Nonrheumatic mitral (valve) insufficiency; I25.10 Atherosclerotic heart disease of native coronary artery without angina pectoris; I65.21 Occlusion and stenosis of right carotid artery; R06.02 Shortness of breath; E78.2 Mixed hyperlipidemia; R01.1 Cardiac murmur, unspecified
CPT/HCPCS: 93306

== ENCOUNTER 2024-05-19 09:20 | Outpatient (POV) | payer MEDICARE, OTHER, SELFPAY ==
--- NOTE | 2024-05-19 09:54 | XR_ITS ---
PROCEDURE INFORMATION: Exam: XR Right Knee Exam date and time: 05/19/2024 10:03 AM Age: 79 years old Clinical indication: Pain; Knee; Right; Additional info: Pain, no injury , worse medial , x 6 mos TECHNIQUE: Imaging protocol: Radiologic exam of the right knee. Views: 3 views. COMPARISON: No relevant prior studies available. FINDINGS: Bones/joints: Calcifications in the medial and lateral compartment are probably within degenerated menisci. Mild tricompartmental osteophytic spurring. No fractures or focal lesions. Soft tissues: Normal. IMPRESSION: 1. Mild tricompartmental degenerative joint disease. 2. Medial and lateral compartment calcifications are probably within degenerated menisci.
[2024-05-19 10:10] VITALS: BP 144/69; PULSE 64; RESP 18; O2SAT 100; BMI 21.2
--- NOTE | 2024-05-19 10:11 | EXP.PAIN.SOA ---
[facility] Disclaimer: The information contained in this section may have been updated after the patient was seen, as this information can be updated by other users. Medical History Syncope Cataract SX TO CORRECT Asthma HTN (hypertension) Surgical History History of loop recorder History of appendectomy History of colonoscopy History of cholecystectomy History of tonsillectomy Status post spinal disc removal History of hysterectomy History of Family History Other Family history of hypertension Family history of myocardial infarction Social History Smoking Status: Never smoker second hand exposure: No alcohol intake: current alcohol intake frequency: a few times a month substance use type: denies use current occupational status: retired Travel in the last 8 weeks: None household members: significant other and none housing: house education level: high school current occupational exposures/hazards: No caffeine: Yes special bimal needs: No agree to transfusion: No do you feel safe at home: Yes victim of physical abuse: No victim of emotional abuse: No victim of sexual abuse: No would you like helpful sources: No PM Subjective & Objective Subjective Subjective:: Patient is a pleasant 79-year-old female who presents today for follow-up of worsening pain. Today she rates her pain an 8 out of 10. Patient states all of her pain is in and around her right knee. She states she still has some low back pain but it is nothing compared to the knee. Patient states that it is severe and unbearable. She states that it does interfere with her ability to perform activities of daily living such as cooking and cleaning. Patient states that she has had this been going on for some time however she has never had imaging done. Patient does believe a lot of it is more arthritis. Patient is prescribed compounded cream and tizanidine 4 mg at bedtime. She does state that she needs refills on all of these. Her Ulisses has been reviewed and is appropriate. Review of Systems: General: No recent weight changes, no fever, no sleep disturbances Respiratory: No cough, no shortness of air, no recurring pulmonary infections Cardiovascular/peripheral vascular: No chest pain, no palpitations, no edema, no shortness of breath Gastrointestinal: No new onset incontinence, normal bowel movements reported Genitourinary: No new onset incontinence Musculoskeletal: Right knee pain Psychiatric: [Normal mood/affect] Neurological: [Denies weakness in extremities], [denies balance issues] Pain at rest (0-10 scale): 8 Objective Objective:: Physical Exam: General: Alert and oriented x3, no acute distress, pleasant and cooperative Lungs: Respirations even and unlabored, symmetrical chest expansion Eyes: PERRL Musculoskeletal: Flexion and extension of right knee somewhat guarded secondary to pain, [antalgic gait noted] Neurological: Speech clear, no gross sensory deficit Has patient had previous pain injection?: No Conservative treatment options previously tried: Home exercise plan Length of treatment: Longer than 12 weeks Meds Home Medications and Allergies Home Medications ?Medication ?Instructions ?Recorded ?Confirmed ?Type buspirone 10 mg tablet 10 mg PO TID Anxiety 12/01/18 05/19/24 History metoprolol tartrate 50 mg tablet 25 mg PO BID blood pressure 11/09/20 05/19/24 History duloxetine 30 mg capsule,delayed 30 mg PO DAILY MOOD 06/21/21 05/19/24 History release losartan 100 See Rx Instructions .Route 07/04/23 05/19/24 Rx mg-hydrochlorothiazide 12.5 mg .COMPLEX blood pressure #90 tabs tablet aspirin 81 mg tablet,delayed 81 mg PO DAILY 10/29/23 05/19/24 History release (Adult Aspirin Regimen) isosorbide mononitrate 30 mg 30 mg PO DAILY BLOOD PRESSURE #90 10/29/23 05/19/24 Rx tablet,extended release 24 hr tabs nitroglycerin 0.4 mg sublingual 0.4 mg sublingual Q5-15M PRN chest 10/29/23 05/19/24 Rx tablet pain #30 tabs tizanidine 4 mg tablet (Zanaflex) 4 mg PO HS MUSCLE RELAXER #90 tabs 02/02/24 05/19/24 Rx budesonide-formoterol HFA 160 1 puff inhalation DIRECTED 04/29/24 05/19/24 History mcg-4.5 mcg/actuation aerosol Breathing Problems inhaler levothyroxine 125 mcg tablet 125 mcg PO DAILY 04/29/24 05/19/24 History New Prescriptions to Start Prescriptions: Allergies Allergy/AdvReac Type Severity Reaction Status Date / Time Penicillins [PENICILLINS] Allergy Unknown I-RASH Verified 04/29/24 09:10 Assessment and Plan *Assessment and plan (1) Right knee pain: Status: Acute Category: Medical Code(s): M25.561 - Pain in right knee Plan patient is experiencing significant pain throughout her right knee with limited range of motion. I did discuss with the patient that she may benefit from a right knee intra-articular injection. Risk and benefits were discussed with the patient and she would like to proceed forward with this plan of care. I will also order x-ray imaging with the plan to do advanced imaging at a later date. I will refill the patient's compounded cream and tizanidine. Patient will be scheduled for a right knee intra-articular injection. Patient has been instructed to contact the clinic with any concerns before the next appointment. Dr. Wade has reviewed this note and agrees with this plan of care. This note was dictated using voice recognition software and make contain errors or omissions. All injections are used with Lidocaine or Bupivacaine and Depo Medrol.
== END 2024-05-19 23:59 | disposition home or self-care (01) ==
PROVIDERS: PCP Internal Medicine Adolescent Medicine; Visit Provider Nurse Practitioner Family
DX: M25.561 Pain in right knee (principal); Z73.89 Other problems related to life management difficulty
CPT/HCPCS: 73562; 99212; G0463

== ENCOUNTER 2024-06-08 12:37 | Day surgery (SDC) | payer MEDICARE, OTHER, SELFPAY ==
[2024-06-08 13:08] VITALS: BP 121/60; PULSE 77; RESP 16; TEMP 36.8; O2SAT 100; BMI 21.2
[2024-06-08 13:26] VITALS: BP 120/78; PULSE 75; RESP 18; O2SAT 96
[2024-06-08] MEDS: methylPREDNISolone ACETATE 80MG/ML VIAL 80 MG (13:26)
[2024-06-08] MEDS: LIDOCAINE 1% 5ML PF VIAL 5 ML (13:26)
[2024-06-08] MEDS: BUPIVACAINE 0.25% 10ML INJ 25 MG IJ (13:26)
[2024-06-08 13:27] VITALS: BP 120/78; PULSE 74; RESP 18; O2SAT 97
--- NOTE | 2024-06-08 13:31 | EXP.PAIN.PRO ---
Procedure Date: 06/08/24 Time: 13:20 Anesthesiologist:: Matthieu Richardson CRNA Complications:: None Pre-procedure Diagnosis:: DJD right knee. Chronic right knee pain. Post-procedure Diagnosis:: Same. Indications for Procedure:: Patient is a pleasant 79-year-old female who comes our clinic today for right intra-articular knee injection of cortisone and local anesthetic. Patient has responded very well to right knee intra-articular injections in the past. She rates her pain today 6/10. She reports ambulation increases pain in the right knee. Pain seems to be localized to the medial compartment. Stairs increased pain. Procedure Details:: Details of the procedure explained to the patient. The patient taken procedure room placed in the sitting position. The over the right knee was cleaned using chlorhexidine as a cleansing solution. Using a 22-gauge inch and half needle the right knee joint was accessed from the anterior lateral position. After negative aspiration 4 cc of 1% lidocaine +4 cc of 0.25% Marcaine and 40 mg of Depo-Medrol was injected. Patient tolerated procedure without difficulty. There are no complications. Plan and Disposition:: Patient was discharged without incident.
[2024-06-08 13:36] VITALS: BP 129/76; PULSE 77; RESP 16; O2SAT 95
== END 2024-06-08 13:36 | disposition home or self-care (01) ==
PROVIDERS: PCP Internal Medicine Adolescent Medicine; Visit Provider Nurse Anesthetist, Certified Registered
DX: M17.11 Unilateral primary osteoarthritis, right knee (principal); M25.561 Pain in right knee; G89.29 Other chronic pain
CPT/HCPCS: 20610; J1010

== ENCOUNTER 2024-10-28 10:02 | Outpatient (CLI) | payer MEDICARE, OTHER, SELFPAY ==
--- NOTE | 2024-10-28 10:05 | XR_ITS ---
FINAL REPORT CLINICAL HISTORY: dyspnea COMPARISON: None FINDINGS: CHEST 2 VIEWS: No acute pulmonary density is evident. There is evidence of prior granulomatous disease. There is no evidence of effusion or other pleural disease. The mediastinum has a normal appearance. The cardiac silhouette is unremarkable. IMPRESSION: No acute abnormality identified. Reviewed, Interpreted and Dictated by João Huynh MD Transcribed by Veda Rosas Authenticated and [facility]
[2024-10-28 10:26] LABS: Coronavirus 19, PCR Not Detected (NotDetected); Influenza A, PCR Not Detected (NotDetected); Influenza B, PCR Not Detected (NotDetected)
[2024-10-28 11:35] LABS: Magnesium 1.4 mg/dl (1.6-2.3)
== END 2024-10-28 23:59 | disposition home or self-care (01) ==
LOC: LAB 10:03
PROVIDERS: PCP Internal Medicine Adolescent Medicine; Visit Provider Nurse Practitioner Family
DX: R01.1 Cardiac murmur, unspecified (principal); R55 Syncope and collapse; K59.00 Constipation, unspecified; J32.9 Chronic sinusitis, unspecified; R07.89 Other chest pain; I10 Essential (primary) hypertension; I34.1 Nonrheumatic mitral (valve) prolapse; I34.0 Nonrheumatic mitral (valve) insufficiency; I25.10 Atherosclerotic heart disease of native coronary artery without angina pectoris; I65.21 Occlusion and stenosis of right carotid artery; E78.2 Mixed hyperlipidemia; R06.02 Shortness of breath; I35.1 Nonrheumatic aortic (valve) insufficiency
CPT/HCPCS: 36415; 71046; 83735; 87636

== ENCOUNTER 2024-11-10 08:59 | Outpatient (POV) | payer MEDICARE, OTHER, SELFPAY ==
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
[2024-11-10 09:12] VITALS: BP 140/78; PULSE 100; RESP 14; O2SAT 100; BMI 21.2
--- NOTE | 2024-11-10 09:20 | EXP.PAIN.SOA ---
[facility] Disclaimer: The information contained in this section may have been updated after the patient was seen, as this information can be updated by other users. Medical History (Updated 11/09/24 @ 09:13 by Janelle Chung) Chronic obstructive pulmonary disease, unspecified HTN (hypertension) Mitral valve prolapse Mitral regurgitation GERD (gastroesophageal reflux disease) Coronary artery disease Carotid artery stenosis HLD (hyperlipidemia) Syncope and collapse Aortic regurgitation Angina pectoris Syncope Cataract Asthma HTN (hypertension) Surgical History History of loop recorder History of appendectomy History of colonoscopy History of cholecystectomy History of tonsillectomy Status post spinal disc removal History of hysterectomy History of Family History Other Family history of hypertension Family history of myocardial infarction Social History Smoking Status: Never smoker second hand exposure: No alcohol intake: current alcohol intake frequency: a few times a month substance use type: denies use current occupational status: retired Travel in the last 8 weeks: None household members: significant other and none housing: house education level: high school current occupational exposures/hazards: No caffeine: Yes special bimal needs: No agree to transfusion: No do you feel safe at home: Yes victim of physical abuse: No victim of emotional abuse: No victim of sexual abuse: No would you like helpful sources: No PM Subjective & Objective Subjective Subjective:: Patient is a pleasant 79-year-old female who presents today for worsening hip pain. She does state that the right side is worse than the left and rates her pain a 6 out of 10. She denies any new falls or injuries. She does state that this has been going on for a little while but she has been very busy with other things and so she has put herself on the back burner. She does state however the pain is just interfere with activities of daily living such as cooking and cleaning and really does wanted coming in for repeat injections. Patient has had a longstanding history of pain in her hips and has gotten injections in the past that did provide significant relief. Patient is still using her compounded cream and tizanidine 4 mg at bedtime. Her Ulisses has been reviewed and is appropriate. Injections: 06/08/2024 for right knee injection 02/10/2024 for right intra-articular knee injection 100% 09/30/2023 right knee intra-articular injection 100% relief July 29, 2023?right SI RFA August 13, 2022?left SI RFA 90% July 30, 2022 right SI RFA 90% 05/24/2022 bilateral SI injection 80% 04/09/2022 bilateral SI injections 60% 02/04/2020 bilateral SI injections 90% 05/25/2019 bilateral SI injections Review of Systems: General: No recent weight changes, no fever, no sleep disturbances Respiratory: No cough, no shortness of air, no recurring pulmonary infections Cardiovascular/peripheral vascular: No chest pain, no palpitations, no edema, no shortness of breath Gastrointestinal: No new onset incontinence, normal bowel movements reported Genitourinary: No new onset incontinence Musculoskeletal: Bilateral hip pain Psychiatric: [Normal mood/affect] Neurological: [Denies weakness in extremities], [denies balance issues] Pain at rest (0-10 scale): 6 Objective Objective:: Physical Exam: General: Alert and oriented x3, no acute distress, pleasant and cooperative Lungs: Respirations even and unlabored, symmetrical chest expansion Eyes: PERRL Musculoskeletal: Flexion and extension of lumbar [spine] somewhat guarded secondary to pain, [antalgic gait noted] point tenderness along bilateral SIs with positive bilateral Rita's, Sindhu's, Gaenslen's, compression and distraction exam Neurological: Speech clear, no gross sensory deficit Has patient had previous pain injection?: No Conservative treatment options previously tried: Home exercise plan Length of treatment: Longer than 12 weeks Meds Home Medications and Allergies Home Medications ?Medication ?Instructions ?Recorded ?Confirmed ?Type buspirone 10 mg tablet 10 mg PO TID Anxiety 12/01/18 11/09/24 History metoprolol tartrate 50 mg tablet 25 mg PO BID blood pressure 11/09/20 11/09/24 History duloxetine 30 mg capsule,delayed 30 mg PO DAILY MOOD 06/21/21 11/09/24 History release aspirin 81 mg tablet,delayed 81 mg PO DAILY 10/29/23 11/09/24 History release (Adult Aspirin Regimen) nitroglycerin 0.4 mg sublingual 0.4 mg sublingual Q5-15M PRN chest 10/29/23 11/09/24 Rx tablet pain #30 tabs budesonide-formoterol HFA 160 1 puff inhalation DIRECTED 04/29/24 11/09/24 History mcg-4.5 mcg/actuation aerosol Breathing Problems inhaler levothyroxine 125 mcg tablet 125 mcg PO DAILY 04/29/24 11/09/24 History losartan 100 See Rx Instructions .Route 07/07/24 11/09/24 Rx mg-hydrochlorothiazide 12.5 mg .COMPLEX blood pressure #90 tabs tablet tizanidine 4 mg tablet See Rx Instructions .Route 08/26/24 11/09/24 Rx .COMPLEX #90 tabs isosorbide mononitrate 30 mg 30 mg PO DAILY BLOOD PRESSURE #90 11/02/24 11/09/24 Rx tablet,extended release 24 hr tabs albuterol sulfate 90 mcg/actuation inhalation 11/09/24 11/09/24 History aerosol inhaler codeine 10 mg-guaifenesin 100 mg/5 10 ml PO Q4-6H PRN cough #120 mL 11/09/24 11/09/24 Rx mL oral liquid escitalopram oxalate 10 mg tablet 10 mg PO 11/09/24 11/09/24 History New Prescriptions to Start Prescriptions: Allergies Allergy/AdvReac Type Severity Reaction Status Date / Time Penicillins (PENICILLINS) Allergy Unknown I-RASH Verified 11/09/24 09:01 Assessment and Plan *Assessment and plan (1) Bilateral sacroiliitis: Status: Acute Category: Medical Code(s): M46.1 - Sacroiliitis, not elsewhere classified Plan Patient is experiencing worsening pain along the low back and bilateral hips. They did have limited range of motion of the lumbar spine along with point tenderness along bilateral SI joints and a positive bilateral Rita's, Sindhu's, Gaenslen's, compression and distraction exam. I did discuss with the patient that I do believe they would benefit from bilateral SI injections. Risk and benefits were discussed with the patient and they would like to proceed forward with this option. Patient has tried and failed conservative therapy including continued at home stretching exercise for longer than 12 weeks. Patient has had a longstanding history of chronic sacroiliitis with her last SI injections back in July 2023. Patient does typically get around 90% relief with each of these interventions and it did last over 1 year. I will also verify that she has refills on her tizanidine. Patient will be scheduled for bilateral SI injections under fluoroscopy. Patient has been instructed to contact the clinic with any concerns before the next appointment. Dr. Wade has reviewed this note and agrees with this plan of care. This note was dictated using voice recognition software and make contain errors or omissions. All injections are used with Lidocaine or Bupivacaine and dexamethasone.
== END 2024-11-10 23:59 | disposition home or self-care (01) ==
PROVIDERS: PCP Internal Medicine Adolescent Medicine; Visit Provider Nurse Practitioner Family
DX: M46.1 Sacroiliitis, not elsewhere classified (principal); Z73.89 Other problems related to life management difficulty
CPT/HCPCS: 99212; G0463

== ENCOUNTER 2024-11-17 07:57 | Outpatient (CLI) | payer MEDICARE, OTHER, SELFPAY ==
--- NOTE | 2024-11-17 | CA_ITS ---
APPROVED REPORT Exam: Exercise Treadmill Technologist: Lisa Santoyo Ht: 5 ft 3 in Wt: 121 lbs BSA: 1.56 m2 HR: 59 bpm BP: 184/85 mmHg Rhythm: NSR Stress Test Details Test: Exercise stress testing was performed using a Jonny protocol. HR Resting HR: 59 bpm Max Heart Rate (APMHR): 143 bpm Max HR Achieved: 122 bpm Target HR (85% APMHR): 122 bpm % of APMHR: 85 Recovery HR: 80 bpm HR response to stress: Normal HR response to stress BP Resting BP: 184.0/85.0 mmHg Max BP: 201.0/101.0 mmHg Recovery BP: 187.0/91.0 mmHg BP response to stress: Abnormal hypertensive response to stress. ECG Resting ECG: NSR Stress EC.[address] depression Clinical Exercise duration: 7:38 min Exercise capacity: 9.7 METs Stress ECG Conclusion Symptoms: No chest pain or shortness of air. Arrhythmias/Ectopy: None ST-T Changes: 0.[address] depression Conclusion: Average exercise capacity. No evidence of ischemia at peak stress on ECG. Myoview images are reported separately. Electronically signed by : Hoa Flower MD 11/17/2024 13:02:58
--- NOTE | 2024-11-17 | CA_ITS ---
APPROVED REPORT EXAM: Comprehensive 2D, Doppler, and color-flow Echocardiogram Infant And Toddler Teacher: Yvette Larry CRT Ht: 5 ft 3 in Wt: 121lbs BSA: 1.56 BP: 127/68 mmHg Indications: Chest Pain, Mitral Valve Prolapse, Murmur, Shortness of Breath, CAD, Hyperlipidemia, Hypertension/HDD, ERICA, Loop recorder 2D Dimensions LA Volume 47.40 mL LA Volume Index 29.60 mL/m2 (M/F) 16-34 M-Mode Dimensions RVDd 2.32 cm (0.9-2.6) LA Diam 3.79 cm (1.9-4.0) LVDd 4.33 cm (3.5-5.7) LVDs 2.88 cm (3.5-5.7) IVSd 1.52 cm (0.6-1.1) PWd 0.68 cm (0.6-1.1) EF (Teich) 62.40% FS 33.50% EDV (Teich) 84.40 mL ESV (Teich) 31.70 mL LV Diastology E Decel Time 217 (160-240 msec) E/A Ratio 0.73 Aortic Valve AI PHT 718.00 ms AO Peak GR. 9.30 mmHg Mitral Valve MV E Max Brian. 65.0 (40-130 cm/s) MV A Velocity 89.0 (40-130 cm/s) E/A Ratio 0.73 MV PHT 63.0 ms Pulmonary Valve PV Peak Velocity 85.0 (50-150 cm/s) Tricuspid Valve TR P. Velocity 247.00 cm/s RAP Estimate 10.00 mmHg RVSP 34.40 mmHg Left Ventricle The left ventricle is normal size. The left ventricular systolic function is normal. The left ventricular ejection fraction is within the normal range. There is increased overall thickness. There is normal LV segmental wall motion. The left ventricular diastolic function is normal. LVEF is 60%. Right Ventricle The right ventricle is normal size. The right ventricular systolic function is normal. Atria Left atrium is mildly dilated. Right atrium is mildly dilated. There is no Doppler evidence of interatrial shunt. Aortic Valve The aortic valve is mildly thickened. Mild aortic regurgitation. There is no aortic valvular stenosis. Mitral Valve There is borderline prolapse of the posterior mitral valve leaflet. Mild mitral regurgitation. No evidence of mitral valve stenosis. Tricuspid Valve Tricuspid valve is grossly normal in structure and function. Trace tricuspid regurgitation. There is insufficient TR jet to estimate RVSP. Pulmonic Valve The pulmonary valve is normal in structure. Mild pulmonic regurgitation. Great Vessels The aortic root is normal in size. IVC is normal in size and collapses >50% with inspiration. Pericardium There is no pericardial effusion. Other Information Study Quality: Fair Conclusion Normal biventricular systolic function. Mild biatrial dilation. Mild AI, mild PI. Borderline prolapse of the posterior MV leaflet. Mild MR. Electronically signed by : Hoa Flower MD 11/23/2024 12:38:08
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
[2024-11-17] MEDS: ALBUTEROL 0.083% 2.5 MG/3 ML NEB IH (08:32)
--- NOTE | 2024-11-17 08:32 | PC.NURSE ---
PFT completed without incident. Albuterol 0.083% given via HHN, per written protocol, Pt tolerated tx well.
--- NOTE | 2024-11-17 11:30 | NM_ITS ---
APPROVED REPORT Exam: Nuclear Stress Test Indication: Chest pain, SOB, Syncope, HTN, Family history Patient Location: Outpatient Stress Tech: Lisa Santoyo RI Tech:Aspen Uribe, ARRT, RT (R)(N) Ht: 5 ft 3 in Wt: 120 lbs Bra Size: 36B HR: 60 bpm BP: 184/85 mmHg BSA: 1.56 m2 TID: 0.88 BMI: 21.2 History: Chest pain, SOB, Syncope, HTN, Family history Procedure: Patient exercised on Jonny protocol 7:38 minutes and sec, resting heart rate 60 bpm, resting blood pressure 184/85 mmHg, with exercise maximum heart rate achived was 129 bpm which is 90 % of the maximum predicted heart rate and blood pressure was 201/101 mmHg. Test was stopped due to SOB. Patient has Average exercise capacity, achieved 9.7 METs of workload on treadmill, the blood pressure response to exercise was Exaggerated. Cardiac Stress and Resting SPECT Images: Cardiac Stress and Resting SPECT images were obtained using technetium 99m Myoview 32.6 mCi stress and 10.70 mCi at rest. technically difficult study due to significant soft tissue overlap with the cardiac borders. This may affect diagnostic interpretation of the study findings. Resting and stress supine and prone positions demonstrate a medium sized, moderate, partially reversible perfusion defect in the distal inferior and apical LV russell. Findings are suggestive of partial reversible ischemia. Gated imaging demonstrates normal global and regional LV systolic function. LVEF is calculated at 70%. Conclusion: Technically difficult study. Medium sized, moderate, partially reversible perfusion defect in the distal inferior and apical LV russell. Findings are suggestive of partial reversible ischemia. Gated imaging demonstrates normal global and regional LV systolic function. LVEF is calculated at 70%. Of note, the patient had a hypertensive BP response to exercise. BP control is recommended. Electronically signed by : Hoa Flower MD 11/18/2024 12:25:09
[2024-11-17] MEDS: ISOTOPE MYOVIEW (PER STUDY) 1 DOSE IV (12:41)
[2024-11-17] MEDS: SODIUM CHLORIDE 0.9% 10ML SYR (RAD ONLY) 10 ML IV ×2 (12:41)
== END 2024-11-17 23:59 | disposition home or self-care (01) ==
LOC: RT 07:58
PROVIDERS: PCP Internal Medicine Adolescent Medicine; Visit Provider Nurse Practitioner Family
DX: I51.7 Cardiomegaly (principal); I34.1 Nonrheumatic mitral (valve) prolapse; I35.1 Nonrheumatic aortic (valve) insufficiency; R01.1 Cardiac murmur, unspecified; R07.89 Other chest pain; R06.00 Dyspnea, unspecified; R55 Syncope and collapse; J32.9 Chronic sinusitis, unspecified; I25.119 Atherosclerotic heart disease of native coronary artery with unspecified angina pectoris; I65.21 Occlusion and stenosis of right carotid artery
CPT/HCPCS: 78452; 93017; 93018; 93306; 94060; 94726; 94729; A9502; J7613

== ENCOUNTER 2024-12-07 13:42 | Day surgery (SDC) | payer MEDICARE, OTHER, SELFPAY ==
[2024-12-07 13:35] VITALS: BP 132/76; PULSE 63; RESP 16; TEMP 36.9; O2SAT 100; BMI 21.2
--- NOTE | 2024-12-07 14:05 | P.PCN_ITS ---
Procedure Date: 12/07/24 Time: 14:00 Anesthesiologist:: Matthieu Richardson CRNA Complications:: None Pre-procedure Diagnosis:: Bilateral sacroiliitis Post-procedure Diagnosis:: Same Indications for Procedure:: Patient is a very pleasant 79-year-old female who comes our clinic today for bilateral sacroiliac joint injections cortisone local anesthetic. Patient describes low lumbar back pain off the midline bilaterally. Bilateral posterior hip pain. Difficulty transitioning from sitting to standing. She rates her pain 7/10. Procedure Details:: Procedure: Bilateral sacroiliac joint injections under fluoroscopy Informed consent was obtained and the risks and benefits of the procedure were explained to the patient.~ The patient was taken to the procedure room and noninvasive monitors were placed including a noninvasive blood pressure cuff and pulse oximeter.~ The patient was placed prone on the procedure table. Both hips were cleansed using Betadine as a cleansing solution. C-arm fluoroscopy was used to view the right sacroiliac joint.~ The skin and subcutaneous tissues were anesthetized using lidocaine 1.5% and a 25-gauge needle.~ After this, a 22-gauge spinal needle was inserted under fluoroscopic guidance into the inferior aspect of the right sacroiliac joint.~ Omnipaque dye was injected and good spread was seen throughout the joint.~ After this, approximately 5 mL of bupivacaine, 0.25% and Depo-Medrol, 40 mg was incrementally injected into the right sacroiliac joint. We then moved to the left sacroiliac joint.~ The skin and subcutaneous tissues were anesthetized using lidocaine 1.5% and a 25-gauge needle.~ After this, a 22- gauge spinal needle was inserted under fluoroscopic guidance into the inferior aspect of the left sacroiliac joint.~ Omnipaque dye was injected and good spread was seen throughout the joint. After this, approximately 5 mL of bupivacaine, 0.25% and Depo-Medrol, 40 mg was incrementally injected into the left sacroiliac joint.~ The patient tolerated the procedure well with no complications. The patient was observed in the Pain Clinic and then was discharged home neurologically intact. Plan and Disposition:: Patient was discharged without incident.
[2024-12-07 14:06] VITALS: BP 127/76; PULSE 73; RESP 18; O2SAT 99
[2024-12-07 14:08] VITALS: BP 137/73; PULSE 63; RESP 16; O2SAT 100
[2024-12-07] MEDS: DEXAMETHASONE 10MG/ML 1ML VIAL 10 MG (14:11)
[2024-12-07] MEDS: BUPIVACAINE 0.25% 10ML INJ 25 MG IJ (14:11)
== END 2024-12-07 14:08 | disposition home or self-care (01) ==
PROVIDERS: PCP Internal Medicine Adolescent Medicine; Visit Provider Nurse Anesthetist, Certified Registered
DX: M46.1 Sacroiliitis, not elsewhere classified (principal)
CPT/HCPCS: G0260; J1100

== ENCOUNTER 2024-12-09 09:07 | Day surgery (SDC) | payer MEDICARE, OTHER, SELFPAY ==
[2024-12-09] VITALS (12 sets, daily range): BP systolic 128–178; BP diastolic 59–98; PULSE 60–75; RESP 16–20; O2SAT 93–97; BMI 24.2; BMI 22.1
--- NOTE | 2024-12-09 07:24 | IR_ITS ---
APPROVED REPORT Patient Location: Outpatient PROCEDURES Left heart catheterization Left ventriculogram Selective coronary angiogram Intravascular ultrasound to the proximal LAD INDICATION Abnormal Myoview, Angina pectoris, Angiographic ambiguity Informed consent was obtained prior to the procedure. COMPLICATIONS NONE Estimated Blood Loss: LESS THAN 10 ML TECHNIQUE One percent lidocaine used to anesthetize the right anterior aspect of the wrist. The right radial artery was accessed via the Seldinger technique. A 6 Icelandic sheath was placed in the right radial artery. 2.5 mg of Verapamil, 800 mcg of nitroglycerin, 1mg Lidocaine and 5000 U Heparin were given through the arterial sheath. The JL3 catheter was also used to perform left heart catheterization, left ventriculogram and selective coronary angiogram. At the end of the diagnostic angiogram therapeutic heparin was administered giving a therapeutic ACT and an FFR wire was attempted to be performed however once again the machine would not connect and there was a device error therefore intravascular ultrasound interrogation was performed. Intravascular ultrasound demonstrated moderate plaque in the proximal LAD with an MLA greater than 7 mm???. Because this did not meet criteria for revascularization the apparatus was removed the sheath was removed and hemostasis was achieved using TR banding patient was transferred to the postop putting in stable condition ANGIOGRAPHIC RESULTS The left main artery Normal The left anterior descending artery Has a proximal concentric 40% stenosis with remaining vessel widely patent The circumflex artery Codominant and has an ostial eccentric 30% stenosis The right coronary artery Codominant normal The [place] ventriculogram reveals Normal 65% The left ventricular end-diastolic pressure 10 mmHg IMPRESSION Moderate proximal LAD disease with a large MLA which is nonflow limiting Mild to moderate eccentric ostial circumflex artery disease Normal ejection fraction Normal LVEDP PLAN 1. Aggressive risk factor modification 2. Evaluation of noncardiac symptoms Electronically signed by : Guevara Moran MD 12/09/2024 10:50:42
[2024-12-09 09:32] LABS: Basophils % 0.6 % (0.1-2.0); Eosinophils # 0.1 Kmm3 (0.0-0.4); Eosinophils % 2.2 % (0.1-12.0); Hematocrit 34.5 % (37.0-47.0); Hemoglobin 11.7 g/dL (12.2-16.2); Immature Granulocytes # 0.03 10^3uL; Immature Granulocytes % 0.5 %; Lymphocytes # 1.9 K/mm3 (0.7-4.5); Mean Corpuscular HGB Conc 33.9 g/dL (31.8-35.4); Mean Corpuscular Hemoglobin 32.9 pg (27.0-31.2); Mean Corpuscular Volume 96.9 fl (81-99); Mean Platelet Volume 9.6 fl (7.4-10.4); Monocytes # 0.5 K/mm3 (0.1-1.0); Monocytes % 7.5 % (1.7-9.3); Neutrophils # 3.6 K/mm3 (1.8-7.8); Neutrophils % 58.2 % (37.0-80.0); Nucleated Red Blood Cells # 0 10^3/uL; Nucleated Red Blood Cells % 0 %; Platelet Count 229 K/mm3 (142-424); Red Blood Count 3.56 M/mm3 (4.20-5.40); Red Cell Distribution Width 12.9 % (11.5-17.5); Red Cell Distribution Width-SD 45.5 fL; White Blood Count 6.2 K/mm3 (4.8-10.8)
[2024-12-09 09:40] LABS: Anion Gap 14.1 mEq/L (5-15); Blood Urea Nitrogen 16 mg/dl (7-17); Calcium 9.4 mg/dl (8.4-10.2); Carbon Dioxide 27 mmol/L (22.0-30.0); Chloride 95 mmol/L (98-107); Creatinine Clearance Estimated 57 mL/min (50-200); Estimated Glomerular Filt Rate 70 ml/min (>60); GFR (African American) 84 ML/MIN (>60); Glucose 84 mg/dl (74-100); Potassium 3.1 mmoL/L (3.5-5.1); Sodium 133 mmol/L (136-145)
[2024-12-09] MEDS: diphenhydrAMINE 50MG/ML VIAL 50 MG IV (10:12)
[2024-12-09] MEDS: NITROGLYCERIN 800MCG/8ML SYR (CATH LAB) 800 MCG IA (10:12)
[2024-12-09] MEDS: LIDOCAINE 1% 10ML MDV 10 ML IJ (10:13)
[2024-12-09] MEDS: 0.9 % SODIUM CHLORIDE 500 ML 25 ML IV (10:13)
[2024-12-09] MEDS: HEPARIN 1,000 UNITS/500ML NS (CATH LAB) 3000 UNIT IV (10:13)
[2024-12-09] MEDS: HEPARIN 1,000 UNITS/ML 10ML VIAL (CATH LAB) 5000 UNIT IV (10:13)
[2024-12-09] MEDS: MIDAZOLAM HCL 1MG/ML 5ML VIAL 1 MG IV (10:25)
[2024-12-09] MEDS: FENTANYL 100MCG/2ML VIAL 50 MCG IV (10:26)
[2024-12-09] MEDS: VERAPAMIL 2.5MG/ML 2ML VIAL 2.5 MG IV (11:08)
[2024-12-09] MEDS: IOPAMIDOL-370 (76%);100ML BOTTLE 80 ML IV (14:23)
== END 2024-12-09 13:39 | disposition home or self-care (01) ==
PROVIDERS: PCP Internal Medicine Adolescent Medicine; Visit Provider Internal Medicine
PROC: 4A023N7 Measurement of Cardiac Sampling and Pressure, Left Heart, Percutaneous Approach (ICD-10-PCS; CPT 93452; principal; 2024-12-09 07:15)
DX: I25.10 Atherosclerotic heart disease of native coronary artery without angina pectoris (principal); R93.1 Abnormal findings on diagnostic imaging of heart and coronary circulation; J44.9 Chronic obstructive pulmonary disease, unspecified; I65.21 Occlusion and stenosis of right carotid artery; I34.0 Nonrheumatic mitral (valve) insufficiency; E78.5 Hyperlipidemia, unspecified; I35.1 Nonrheumatic aortic (valve) insufficiency; I10 Essential (primary) hypertension; Z88.0 Allergy status to penicillin; Z79.899 Other long term (current) drug therapy; Z79.51 Long term (current) use of inhaled steroids
CPT/HCPCS: 80048; 85025; 92978; 93458; 99152; C1725; C1769; J0153; J1200; J1644; J3010; Q9967

== ENCOUNTER 2025-01-06 10:54 | Outpatient (POV) | payer MEDICARE, OTHER, SELFPAY ==
--- OUTSIDE RECORDS SUMMARY | 2024-10-23 17:30 | XMS_ITS ---
Author Organization [facility] Address [address] [facility] [address] [place] [address] Care Team Providers Care Drier Operator Head Name Role Phone Chau Durham Primary Care Provider [phone] Migration, Provider Unavailable Unavailable Allergies Allergen (clinical drug ingredient) Drug/Non Drug Allergy documented on EMR Reaction Allergy Type Onset Date Status Penicillin Unknown Drug Allergy Active REAS[facility]IT [facility] Conversion Encounter Medications Medication SIG (Take, Route, Frequency, Duration) Notes Start Date End Date Status Isosorbide Mononitrate ER 60 MG 1.5 tab(s) orally once a day (in the morning) Active Triamcinolone Acetonide 0.5 % 1 obie applied topically 2 times a day for 7 day(s) 02/11/2017 Active Levothyroxine Sodium 125 MCG 1 tab(s) orally once a day for 90 days Active Promethazine-DM 6.25-15 MG/5ML 5 mL orally every 6 hours for 10 days 10/22/2024 Active Lisinopril 10 MG 1 tab(s) orally once a day for 30 day(s) 05/28/2019 Active Zithromax Z-Godwin 250 MG 2 tablets on the first day, then 1 tablet daily for 4 days orally once a day for 5 days 10/22/2024 Active Promethazine-DM 6.25-15 MG/5ML 5 mL orally every 6 hours for 10 days 10/13/2024 Active Symbicort 80-4.5 MCG/ACT 2 puff(s) inhaled 2 times a day for 90 days Active Escitalopram Oxalate 10 MG 1 tab(s) orally once a day for 90 days Active DULoxetine HCl 30 MG 1 cap(s) orally once a day for 90 days Active ALBUTEROL (EQV-PROVENTIL HFA) 90 MCG/INH 2 INH INHALED EVERY 6 HOURS for 30 DAYS *Please review for potential replacement for e-prescription and drug interaction check* 10/13/2024 Active amLODIPine Besylate 5 MG 1 tab(s) orally once a day for 30 days 10/13/2024 Active busPIRone HCl 10 MG 1 tab(s) orally three times a day for 90 days Active Linzess 290 MCG 1 cap(s) orally once a day for 30 day(s) 09/03/2022 Active Metoprolol Tartrate 25 MG 1 tab(s) orally 2 times a day for 90 days Active ADULT ASPIRIN REGIMEN 81 MG 1 TAB(S) ORALLY ONCE A DAY for 30 DAY(S) *Please review for potential replacement for e-prescription and drug interaction check* 06/06/2022 Active MOBIC 15 MG 1 TAB(S) ORALLY ONCE A DAY for 90 DAYS prn *Please review for potential replacement for e-prescription and drug interaction check* Active Encounters Encounter Location Date Provider Diagnosis [facility] [address] [facility] [address] [place] [address] 10/23/2024 Provider Migration Plan Of Treatment Medication Medication Name Sig Start Date Stop Date Notes Levothyroxine Sodium 125 MCG 1 tab(s) orally once a day for 90 days Promethazine-DM 6.25-15 MG/5ML 5 mL orally every 6 hours for 10 days 10/22/2024 Zithromax Z-Godwin 250 MG 2 tablets on the first day, then 1 tablet daily for 4 days orally once a day for 5 days 10/22/2024 Promethazine-DM 6.25-15 MG/5ML 5 mL orally every 6 hours for 10 days 10/13/2024 ALBUTEROL (EQV-PROVENTIL HFA) 90 MCG/INH 2 INH INHALED EVERY 6 HOURS for 30 DAYS 10/13/2024 *Please review for potential replacement for e-prescription and drug interaction check* amLODIPine Besylate 5 MG 1 tab(s) orally once a day for 30 days 10/13/2024 Progress Notes * Indira PITT RDOB:[birth year] (79 yo F)Acc No.[id number]:10/23/2024 Patient: Indira GUZMAN Number:[id number] Provider: Sawyer benítez Migration :1945 A ge:79 Y S ex:Female Date:10/23/2024 [address] [id number] Pcp:Chau Durham Subjective: * Chief Complaints: * 1 . [facility] Conversion Encounter. * Medical History: * Medications: [...] Electronic signature of Prov ider Migration on 01/06/2025 at 10:58 AM EDT Sign off status: Pending * Provider: Sawyer Negron Date: 10/23/2024 Generated for Pipe swain/Monica/Charlene on: 01/06/2025 10:58 AM EDT
--- OUTSIDE RECORDS SUMMARY | 2024-11-09 08:30 | XMS_ITS ---
Author Organization [facility] Address [address] [place], [place] [address] Care Team Providers Care Lifestyle Block Farmer Name Role Phone Chau Durham Primary Care Provider [phone] REASON FOR VISIT 4 week ck Encounters Encounter Location Date Provider Diagnosis [facility] [address] [address] 11/09/2024 Chau Durham Plan Of Treatment No Information Progress Notes * Indira PITT RDOB:[birth year] (79 yo F)Acc No.[id number]:11/09/2024 Progress Notes Patient: Indira GUZMAN Provider: Deon Durham MD :1945 A ge:79 Y S ex:Female Date:11/09/2024 Address:[address] [id number] Subjective: * Chief Complaints: * 1 . 4 week ck. * Medical History: Objective: * Vitals: Assessment: Plan: * Treatment: * * Electronic signature of Dilip Durham MD FAAP on 01/06/2025 at 10:58 AM EDT Sign off status: Pending * Provider: Deon Durham MD Date: 11/09/2024 Generated for Printi ng/Fadanteg/eTransmitting on: 01/06/2025 10:58 AM EDT
--- NOTE | 2025-01-06 10:56 | EXP.PAIN.SOA ---
[facility] Disclaimer: The information contained in this section may have been updated after the patient was seen, as this information can be updated by other users. Medical History (Updated 01/06/25 @ 11:16 by Telma Elias APRN) Abnormal findings on diagnostic imaging of heart and coronary circulation Chronic obstructive pulmonary disease, unspecified HTN (hypertension) Mitral valve prolapse Mitral regurgitation GERD (gastroesophageal reflux disease) Coronary artery disease Carotid artery stenosis HLD (hyperlipidemia) Syncope and collapse Aortic regurgitation Angina pectoris Syncope Cataract Asthma HTN (hypertension) Surgical History (Updated 12/16/24 @ 09:13 by Corrine Justice MA) History of cardiac cath History of loop recorder History of appendectomy History of colonoscopy History of cholecystectomy History of tonsillectomy Status post spinal disc removal History of hysterectomy History of Family History Other Family history of hypertension Family history of myocardial infarction Social History Smoking Status: Never smoker second hand exposure: No alcohol intake: current alcohol intake frequency: a few times a month substance use type: denies use current occupational status: other Travel in the last 8 weeks?: None household members: significant other and none housing: house education level: high school current occupational exposures/hazards: No caffeine: Yes special bimal needs: No agree to transfusion: No do you feel safe at home: Yes victim of physical abuse: No victim of emotional abuse: No victim of sexual abuse: No would you like helpful sources: No PM Subjective & Objective Subjective Subjective:: Patient is a pleasant 79-year-old female who presents today for follow-up of bilateral SI injections on 12/07/2024. Today she rates her pain a 5 out of 10. She denies any new trauma or injury. She does state that she did have at least 50% improvement following these injections however she felt like it provided more relief on the left side than the right. She does state that these did not seem to do as well compared to previous ones. Patient is still having pain there across her low back that is worse with certain movements such as bending, twisting or lifting. Patient does state the pain interferes with her ability perform activities of daily living such as cooking and cleaning. Patient is prescribed compounded cream and tizanidine 4 mg at bedtime from our office. She denies any side effects. Her Ulisses has been reviewed and is appropriate. Injections: 12/07/2024 bilateral SI injections 06/08/2024 for right knee injection 02/10/2024 for right intra-articular knee injection 100% 09/30/2023 right knee intra-articular injection 100% relief July 29, 2023?right SI RFA August 13, 2022?left SI RFA 90% July 30, 2022 right SI RFA 90% 05/24/2022 bilateral SI injection 80% 04/09/2022 bilateral SI injections 60% 02/04/2020 bilateral SI injections 90% 05/25/2019 bilateral SI injections Review of Systems: General: No recent weight changes, no fever, no sleep disturbances Respiratory: No cough, no shortness of air, no recurring pulmonary infections Cardiovascular/peripheral vascular: No chest pain, no palpitations, no edema, no shortness of breath Gastrointestinal: No new onset incontinence, normal bowel movements reported Genitourinary: No new onset incontinence Musculoskeletal: Low back pain Psychiatric: [Normal mood/affect] Neurological: [Denies weakness in extremities], [denies balance issues] Pain at rest (0-10 scale): 5 Objective Objective:: Physical Exam: General: Alert and oriented x3, no acute distress, pleasant and cooperative Lungs: Respirations even and unlabored, symmetrical chest expansion Eyes: PERRL Musculoskeletal: Flexion and extension of lumbar [spine] somewhat guarded secondary to pain, [antalgic gait noted] positive Kemps test Neurological: Speech clear, no gross sensory deficit Has patient had previous pain injection?: Yes Percent improvement in pain since last injection: 50% Conservative treatment options previously tried: Home exercise plan Length of treatment: Longer than 12 weeks Meds Home Medications and Allergies Home Medications ?Medication ?Instructions ?Recorded ?Confirmed ?Type buspirone 10 mg tablet 10 mg PO TID Anxiety 12/01/18 12/16/24 History metoprolol tartrate 50 mg tablet 25 mg PO BID blood pressure 11/09/20 12/16/24 History duloxetine 30 mg capsule,delayed 30 mg PO DAILY MOOD 06/21/21 12/16/24 History release aspirin 81 mg tablet,delayed 81 mg PO DAILY 10/29/23 12/16/24 History release (Adult Aspirin Regimen) budesonide-formoterol HFA 160 1 puff inhalation DIRECTED 04/29/24 12/16/24 History mcg-4.5 mcg/actuation aerosol Breathing Problems inhaler levothyroxine 125 mcg tablet 125 mcg PO DAILY 04/29/24 12/16/24 History losartan 100 See Rx Instructions .Route 07/07/24 12/16/24 Rx mg-hydrochlorothiazide 12.5 mg .COMPLEX blood pressure #90 tabs tablet isosorbide mononitrate 30 mg 30 mg PO DAILY BLOOD PRESSURE #90 11/02/24 12/16/24 Rx tablet,extended release 24 hr tabs albuterol sulfate 90 mcg/actuation 90 mcg inhalation DIRECTED 11/09/24 12/16/24 History aerosol inhaler codeine 10 mg-guaifenesin 100 mg/5 10 ml PO Q4-6H PRN cough #120 mL 11/09/24 12/16/24 Rx mL oral liquid escitalopram oxalate 10 mg tablet 10 mg PO DIRECTED 11/09/24 12/16/24 History tizanidine 4 mg tablet See Rx Instructions .Route 12/03/24 12/16/24 Rx .COMPLEX #90 tabs atorvastatin 40 mg tablet (Lipitor) 40 mg PO DAILY #30 tabs 12/16/24 12/16/24 Rx nitroglycerin 0.4 mg sublingual 0.4 mg sublingual Q5-15M PRN chest 12/16/24 12/16/24 Rx tablet pain #30 tabs New Prescriptions to Start Prescriptions: Allergies Allergy/AdvReac Type Severity Reaction Status Date / Time Penicillins (PENICILLINS) Allergy Unknown I-RASH Verified 12/16/24 09:10 Assessment and Plan *Assessment and plan (1) Low back pain: Status: Acute Qualifiers: Chronicity: chronic Back pain laterality: bilateral Sciatica presence: without sciatica Qualified Code(s): M54.50 - Low back pain, unspecified; G89.29 - Other chronic pain Category: Medical Code(s): M54.50 - Low back pain, unspecified (2) Lumbar facet arthropathy: Status: Acute Category: Medical Code(s): M47.816 - Spondylosis without myelopathy or radiculopathy, lumbar region Plan Patient is experiencing significant pain in her low back that is worse with bending, twisting or lifting. Patient did have limited range of motion of her lumbar spine with a positive Kemps test during today's visit. I did discuss with the patient that I do believe she would benefit from a lumbar medial branch block. Risk and benefits were discussed with the patient and she would like to proceed forward with this plan of care. Patient has tried and failed conservative therapy including oral medications, heat and ice, topicals, physical therapy and continued at home stretching exercise for longer than 12 weeks that was physician guided. Patient has been experiencing chronic low back pain for longer than 2 years. Patient was counseled that if she does get significant relief with her first lumbar medial branch block that we will plan on repeating it with the plan to progress forward to a lumbar RFA at a later date. Patient agrees with this plan of care. Patient will be scheduled for her first diagnostic lumbar medial branch block bilaterally L4-L5 and L5-S1 under fluoroscopy. Patient has been instructed to contact the clinic with any concerns before the next appointment. Dr. Wade has reviewed this note and agrees with this plan of care. This note was dictated using voice recognition software and make contain errors or omissions. All injections are used with Lidocaine, Bupivacaine and dexamethasone unless diagnostic in which there is no steroids injected. Occasionally urine drug screen is needed to verify patient's compliance with our office pain contract. This is ordered based off specific treatments related to chronic pain with the potential to abuse certain medications.
--- OUTSIDE RECORDS SUMMARY | 2025-01-06 10:58 | XMS_ITS | Clinical Summary ---
Author Organization [facility] Address [address] [place] [address] Care Team Providers Care Contribution Solicitor Name Role Phone Chau Durham MD Primary Care Provider Social History Tobacco Use Types Packs/Day Years Used Date Smoking Tobacco: Never Comments Unknown Sex and Gender Information Value Date Recorded Sex Assigned at Not on file Legal Sex Female 8:03 PM EDT Gender Identity Not on file Sexual Orientation Not on file Last Filed Vital Signs Vital Sign Reading Time Taken Comments Blood Pressure - - Pulse - - Temperature - - Respiratory Rate - - Oxygen Saturation - - Inhaled Oxygen Concentration - - Weight 65.1 kg (143 lb 8 oz) 12/20/2014 8:10 AM EDT Height 160 cm (5' 3 ) 12/20/2014 8:10 AM EDT Body Mass Index 25.42 12/20/2014 8:10 AM EDT Plan of Treatment Health Maintenance Due Date Last Done Comments Dental Oral Exam 1945 Dental Prophylaxis 1945 Dental X-Ray: Bitewings 1945 Dental X-Ray: Full Mouth 1945 [facility]-Bone Density Scan 1947 [facility]-Depression Screening 1947 [facility]-/Child/Adol SDOH Screenings 1947 [facility]- SDOH Screenings 1965 [facility]-Adult SDOH Screenings 1965 [facility]-DTaP,Tdap,and Td Vaccine s (1 - Tdap) 1966 [facility]-Pneumococcal Vaccine: 50 + Years (1 of 1 - PCV) 1997 [facility]-Zoster Vaccines (1 of 2) 1997 [facility]-RSV Vaccine: 60+ Years o r (1 - 1-dose 75+ series) 2022 [facility]-INPEG-05 Vaccine (1 20 24-25 season) 2024 [facility]-Influenza Vaccine ([place]as[place] n Ended) 2025 HPV Vaccines Aged Out No longer eligi ble based on patient's age to complete this topic [facility]-HIB Vaccines Aged Out No longer e ligible based on patient's age to complete this topic [facility]-Hepatitis A Vaccines Aged Out No longer eligible based on patient's age to complete this topic [facility]-IPV Vaccines Aged Out No longer e ligible based on patient's age to complete this topic [facility]-Rotavirus Vaccines Aged Out No lo nger eligible based on patient's age to complete this topic Care Teams Contribution Solicitor Relationship Specialty Start Date End Date Chau Durham MD [address] [place] [id number] PCP - General 12/01/20
--- OUTSIDE RECORDS SUMMARY | 2025-01-06 10:59 | XMS_ITS | Patient Health Record ---
Author Organization [facility] D [place] Address [address] [place] [address] Care Team Providers Care Stevedore Dock Name Role Phone Chau Durham Primary Care Provider Migration, Provider Unavailable Unavailable Allergies Allergen (clinical drug ingredient) Drug/Non Drug Allergy documented on EMR Reaction Allergy Type Onset Date Status Penicillin Unknown Drug Allergy Active Results Component Value Reference Range Notes BASIC METABOLIC PANEL (02655 ) Reviewed date:10/14/2024 03:00:05 PM Interpretation: Performing Lab:[facility] [id number] Room n [address], MeridianWrcfZP[address] Monico Dumont Notes/Report: NON-FASTING; NON-FASTING GLUCOSE 91 65-99 mg/dL Fasting reference interval UREA NITROGEN (BUN) 15 7-25 mg/dL CREATININE 0.89 0.60-1.00 mg/dL EGFR 67 > OR = 60 mL/min/1.73m2 BUN/CREATININE RATIO SEE NOTE: 6-22 (calc) Not Reported: BUN and Creatinine are within reference range. SODIUM 134 135-146 mmol/L POTASSIUM 4.6 3.5-5.3 mmol/L CHLORIDE 97 98-110 mmol/L CARBON DIOXIDE 27 20-32 mmol/L CALCIUM 9.2 8.6-10.4 mg/dL THYROID PANEL WITH TSH (7444 ) Reviewed date:10/14/2024 03:00:05 PM Interpretation: Performing Lab:[facility] [id number] Room n [address] [employer], MeridianOsfkPK[address] Monico Dumont Notes/Report: NON-FASTING; NON-FASTING T3 UPTAKE 35 22-35 % T4 (THYROXINE), TOTAL 5.2 5.1-11.9 mcg/dL FREE T4 INDEX (T7) 1.8 1.4-3.8 TSH 4.27 0.40-4.50 mIU/L VITAMIN B12/FOLATE, SERUM LIAM DIAS (7065) Reviewed date:05/31/2024 10:01:04 AM Interpretation: Performing Lab:[facility], [facility] [address], [place] XlwtBI[address] Monico Dumont Notes/Report: NON-FASTING; NON-FASTING; NON-FASTING; NON-FASTING; NON-FAST FASTING:NO FASTING: NO VITAMIN B12 259 336-1697 pg/mL Please Note: Although the reference range for vitamin B12 is 200-1100 pg/mL, it has been reported that between 5 and 10% of patients with values between 200 and 400 pg/mL may experience neuropsychiatric and hematologic abnormalities due to occult B12 deficiency; less than 1% of patients with values above 400 pg/mL will have symptoms. FOLATE, SERUM 19.2 Reference Range Low: <3.4 Borderline: 3.4-5.4 Normal: >5.4 HEMOGLOBIN A1c (496) Reviewed date:05/31/2024 10:01:04 AM Interpretation: Performing Lab:[facility] [address], [place] CbnkYD[address] Monico Dumont Notes/Report: NON-FASTING; NON-FASTING; NON-FASTING; NON-FASTING; NON-FAST FASTING:NO FASTING: NO HEMOGLOBIN A1c 5.0 <5.7 % of total Hgb For the purpose of screening for the presence of diabetes: <5.7% Consistent with the absence of diabetes 5.7-6.4% Consistent with increased risk for diabetes (prediabetes) > or =6.5% Consistent with diabetes This assay result is consistent with a decreased risk of diabetes. Currently, no consensus exists regarding use of hemoglobin A1c for diagnosis of diabetes in children. According to [place] Diabetes Association (ADA) guidelines, hemoglobin A1c <7.0% represents optimal control in non- diabetic patients. Different metrics may apply to specific patient populations. Standards of Medical Care in Diabetes(ADA). CBC (INCLUDES DIFF/PLT) (639 9) Reviewed date:05/31/2024 10:01:04 AM Interpretation: Performing Lab:[facility] [address], [place] AytrJC[address] Monico Dumont Notes/Report: NON-FASTING; NON-FASTING; NON-FASTING; NON-FASTING; NON-FAST FASTING:NO FASTING: NO WHITE BLOOD CELL COUNT 4.7 3.8-10.8 Thousand/ uL RED BLOOD CELL COUNT 3.56 3.80-5.10 Million/uL HEMOGLOBIN 11.9 11.7-15.5 g/dL HEMATOCRIT 35.3 35.0-45.0 % MCV 99.2 80.0-100.0 fL MCH 33.4 27.0-33.0 pg MCHC 33.7 32.0-36.0 g/dL For adults, a slight decrease in the calculated MCHC value (in the range of 30 to 32 g/dL) is most likely not clinically significant; however, it should be interpreted with caution in correlation with other red cell parameters and the patient's clinical condition. RDW 11.5 11.0-15.0 % PLATELET COUNT 214 140-400 Thousand/uL MPV 11.1 7.5-12.5 fL ABSOLUTE NEUTROPHILS [phone] cells/uL ABSOLUTE LYMPHOCYTES 8246 284-4864 cells/uL ABSOLUTE MONOCYTES 362 200-950 cells/uL ABSOLUTE EOSINOPHILS 183 15-500 cells/uL ABSOLUTE BASOPHILS 52 0-200 cells/uL NEUTROPHILS 66 LYMPHOCYTES 21.3 MONOCYTES 7.7 EOSINOPHILS 3.9 BASOPHILS 1.1 COMPREHENSIVE METABOLIC PANE L (89715) Reviewed date:05/31/2024 10:01:03 AM Interpretation: Performing Lab:[facility], [facility] C[address] [facility] CenterPknkPF[address] Monico Dumont Notes/Report: NON-FASTING; NON-FASTING; NON-FASTING; NON-FASTING; NON-FAST FASTING:NO FASTING: NO GLUCOSE 89 65-139 mg/dL Non-fasting reference interval UREA NITROGEN (BUN) 14 7-25 mg/dL CREATININE 0.82 0.60-1.00 mg/dL EGFR 74 > OR = 60 mL/min/1.73m2 BUN/CREATININE RATIO SEE NOTE: 6- (calc) Not Reported: BUN and Creatinine are within reference range. SODIUM 134 135-146 mmol/L POTASSIUM 4.6 3.5-5.3 mmol/L CHLORIDE 101 98-110 mmol/L CARBON DIOXIDE 25 20-32 mmol/L CALCIUM 9.4 8.6-10.4 mg/dL PROTEIN, TOTAL 6.3 6.1-8.1 g/dL ALBUMIN 4.1 3.6-5.1 g/dL GLOBULIN 2.2 1.9-3.7 g/dL (calc) ALBUMIN/GLOBULIN RATIO 1.9 1.0-2.5 (calc) BILIRUBIN, TOTAL 0.6 0.2-1.2 mg/dL ALKALINE PHOSPHATASE 80 37-153 U/L AST 15 10-35 U/L ALT 8 6-29 U/L LIPID PANEL, STANDARD (7600) Reviewed date:05/31/2024 10:01:03 AM Interpretation: Performing Lab:[facility] PEPperPRINTe1355 Room [address] [place], bCODEJzufOY[address] Monico Dumont Notes/Report: NON-FASTING; NON-FASTING; NON-FASTING; NON-FASTING; NON-FAST FASTING:NO FASTING: NO CHOLESTEROL, TOTAL 166 <200 mg/dL HDL CHOLESTEROL 58 > OR = 50 mg/dL TRIGLYCERIDES 125 <150 mg/dL LDL-CHOLESTEROL 85 Reference range: <100 Desirable range <100 mg/dL for primary prevention; <70 mg/dL for patients with CHD or diabetic patients with > or = 2 CHD risk factors. LDL-C is now calculated using the Arnav-Uribe calculation, which is a validated novel method providing better accuracy than the Friedewald equation in the estimation of LDL-C. Arnav SS et al. KATHI. 2013;310(19): 6072-4770 (http://education.OnShift.Subtextual/faq/GNB506) CHOL/HDLC RATIO 2.9 <5.0 (calc) NON HDL CHOLESTEROL 108 <130 mg/dL (calc) For patients with diabetes plus 1 major ASCVD risk factor, treating to a non-HDL-C goal of <100 mg/dL (LDL-C of <70 mg/dL) is considered a therapeutic option. THYROID PANEL WITH TSH (7444 ) Reviewed date:05/31/2024 10:01:03 AM Interpretation: Performing Lab:[facility], [facility] [address], WebtrekkHxljGA[address] Monico Dumont Notes/Report: NON-FASTING; NON-FASTING; NON-FASTING; NON-FASTING; NON-FAST FASTING:NO FASTING: NO T3 UPTAKE 33 22-35 % T4 (THYROXINE), TOTAL 6.6 5.1-11.9 mcg/dL FREE T4 INDEX (T7) 2.2 1.4-3.8 TSH 0.12 0.40-4.50 mIU/L VITAMIN D,25-OH,TOTAL,IA (17 306) Reviewed date:05/31/2024 10:01:04 AM Interpretation: Performing Lab:[facility], [facility] Rvrr[address]189 [facility] CenterUpjkCY[address] Monico Dumont Notes/Report: NON-FASTING; NON-FASTING; NON-FASTING; NON-FASTING; NON-FAST FASTING:NO FASTING: NO VITAMIN D,25-OH,TOTAL,IA 73 30-100 ng/mL Vitamin D Status 25-OH Vitamin D: Deficiency: <20 ng/mL Insufficiency: 20 - 29 ng/mL Optimal: > or = 30 ng/mL For 25-OH Vitamin D testing on patients on D2-supplementation and patients for whom quantitation of D2 and D3 fractions is required, the QuestAssureD(TM) 25-OH VIT D, (D2,D3), LC/MS/MS is recommended: order code 87848 (patients >2yrs). See Note 1 Note 1 For additional information, please refer to http://education.Quizens.Subtextual/faq/BSI466 (This link is being provided for informational/ educational purposes only.) Medications Medication SIG (Take, Route, Frequency, Duration) Notes Start Date End Date Status Zithromax Z-Godwin 250 MG 2 tablets on the first day, then 1 tablet daily for 4 days orally once a day for 5 days 10/22/2024 Active Promethazine-DM 6.25-15 MG/5ML 5 mL orally every 6 hours for 10 days 10/22/2024 Active ALBUTEROL (EQV-PROVENTIL HFA) 90 MCG/INH 2 INH INHALED EVERY 6 HOURS for 30 DAYS *Please review for potential replacement for e-prescription and drug interaction check* 10/13/2024 Active Promethazine-DM 6.25-15 MG/5ML 5 mL orally every 6 hours for 10 days 10/13/2024 Active amLODIPine Besylate 5 MG 1 tab(s) orally once a day for 30 days 10/13/2024 Active Isosorbide Mononitrate ER 60 MG 1.5 tab(s) orally once a day (in the morning) Active Metoprolol Tartrate 25 MG 1 tab(s) orally 2 times a day for 90 days Active Triamcinolone Acetonide 0.5 % 1 obie applied topically 2 times a day for 7 day(s) 02/11/2017 Active Levothyroxine Sodium 125 MCG 1 tab(s) orally once a day for 90 days Active Lisinopril 10 MG 1 tab(s) orally once a day for 30 day(s) 05/28/2019 Active ADULT ASPIRIN REGIMEN 81 MG 1 TAB(S) ORALLY ONCE A DAY for 30 DAY(S) *Please review for potential replacement for e-prescription and drug interaction check* 06/06/2022 Active DULoxetine HCl 30 MG 1 cap(s) orally once a day for 90 days Active MOBIC 15 MG 1 TAB(S) ORALLY ONCE A DAY for 90 DAYS prn *Please review for potential replacement for e-prescription and drug interaction check* Active busPIRone HCl 10 MG 1 tab(s) orally three times a day for 90 days Active Linzess 290 MCG 1 cap(s) orally once a day for 30 day(s) 09/03/2022 Active Symbicort 80-4.5 MCG/ACT 2 puff(s) inhaled 2 times a day for 90 days Active Escitalopram Oxalate 10 MG 1 tab(s) orally once a day for 90 days Active Immunizations Vaccine Route Administration Date Status Comme nts Boostrix IM Intramuscular 10/12/2024 Administered Fluzone High Dose IM Intramuscular 04/20/2024 Administered Arexvy IM Intramuscular 09/16/2023 Administered SHINGRIX IM Intramuscular 05/27/2024 Administered Pneumovax 23 IM Intramuscular 06/23/2018 Administered Fluzone High Dose IM Intramuscular 07/03/2018 Administered Fluzone High Dose IM Intramuscular 04/06/2019 Administered Fluzone High Dose IM Intramuscular 08/04/2020 Administered Fluzone High Dose IM Intramuscular 05/09/2021 Administered ZZ Unknown 02/09/2007 Administered Tetanus Toxoid Unknown 01/12/2007 Administered Tenivac (Td) 7 + yrs IM Intramuscular 03/25/2014 Administe red Prevnar PCV-13 (Pneumococcal conjugate 13) IM Intramuscular 01/23/2017 Administered Pneumococcal Vaccine Unknown 05/30/2011 Administered Influenza (Fluzone)--Medicare only Unknown 04/21/2012 Administered Influenza (Fluzone)--Medicare only IM Intramuscular 04/26/2014 Administered Influenza (Fluzone)--Medicare only IM Intramuscular 04/19/2016 Administered Influenza (Fluzone)--Medicare only IM Intramuscular 2017 Administered Fluvirin--Influenza vaccine 3+ year Unknown 05/22/2010 Administered SHINGRIX IM Intramuscular 10/08/2024 Administered Problems Problem Type SNOMED Code ICD Code Onset Dates Problem Status W/U Status Risk Notes Problem 46764905 Type 2 diabetes mellitus with other specified complication (E11.69) Active confirmed Problem 03070584 Intestinal malabsorption, 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) Active confirmed Problem 505220522 Vitamin B12 deficiency (E53.8) Active confirmed Problem 447091136 Depression with anxiety (F41.8) Active confirmed Problem Hypothyroidism (58545750) Hypothyroidism (E03.9) Active confirmed Problem Hypertension (51885206) Hypertension (I10) Active confirmed Problem 353484772 Asthma exacerbation (J45.901) Active confirmed Problem 198031163 Seasonal allergi es (J30.2) Active confirmed Problem 84833094 Hyperlipidemia, unspecified (E78.5) Active confirmed Problem Type 2 diabetes mellitus well controlled (229628565) Controlled diabetes mellitus type II without complication (E11.9) Active confirmed Problem 185427077 Thyroid nodule (E04.1) Active confirmed Problem 76468276 Constipation, unspecified constipation type (K59.00) Active confirmed Problem 954724666 Arthritis of shoulder region, 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) Active confirmed Problem 687498944 Pulmonary nodule (R91.1) Active confirmed Problem 480623931783111 Mild persistent asthma with acute exacerbation (J45.31) Active confirmed Problem 536524181 History of non anemic vitamin B12 deficiency (Z86.39) Active confirmed Problem Depressed (81281531) Depressed (F32.9) Active confirmed Problem 162653443 Osteopenia determined by x-ray (M85.80) Active confirmed Problem 961346494 Raynaud's diseas e without gangrene (I73.00) Active confirmed Problem Essential hypertension (89307579) Accelerated hypertension (I10) Active confirmed Problem 2593738418942465 Arthritis of ri ght knee (M17.11) Active confirmed Problem Mitral and aortic regurgitation (494085255) Mitral and aortic regurgitation (I08.0) Active confirmed Problem 266210861 Asthma, unspecified asthma severity, unspecified whether complicated, unspecified whether persistent (J45.909) Active confirmed Problem 111078091 Raynaud's phenomenon without gangrene (I73.00) Active confirmed Problem Atherosclerotic heart disease of [place] coronary artery without angina pectoris (388766281206070) Arteriosclerosis of coronary artery (I25.10) Active confirmed Vital Signs Heart Rate 80 /min 10/12/2024 Temperature 97.9 degrees Fahrenheit 10/12/2024 Blood pressure diastolic 80 mm Hg 10/12/2024 Height 5 ft 3 in in 10/12/2024 Blood pressure systolic 118 mm Hg 10/12/2024 Weight 122 lbs 10/12/2024 BMI 21.61 kg/m2 10/12/2024 Encounters Encounter Location Date Provider Diagnosis [facility] [address] [address] 02/16/2024 Chau Natalieson Depression with anxiety F41.8 [facility] [address] [address] 02/25/2024 Chau Besson [facility] [address] [address] 05/17/2024 Chau Besson [facility] [address] [address] 05/20/2024 Chau Besson [facility] [address] [address] 10/13/2024 Chau Besson [facility] [address] [address] 10/22/2024 Chau Besson [facility] [address] [address] 10/12/2024 Chau Besson Hypertension I10 ; Hypothyroidism E03.9 ; Pre-syncope R55 ; Asthma, unspecified asthma severity, unspecified whether complicated, unspecified whether persistent J45.909 ; Seasonal allergies J30.2 ; Encounter for immunization Z23 and Healthcare maintenance Z00.00 [facility] [address] [address] 05/27/2024 Chau Besson Vitamin B12 deficien cy E53.8 ; Hypertension I10 ; Osteopenia determined by x-ray M85.80 ; Thyroid nodule E04.1 ; Hyperlipemia, idiopathic familial E78.5 ; Type 2 diabetes mellitus with other specified complication E11.69 ; Hyperlipidemia, unspecified E78.5 ; Arthritis of right knee M17.11 ; Routine medical exam Z00.00 and Encounter for immunization Z23 [place] [facility] [address] [address] 04/20/2024 Chau Estradaalka Immunization(s) administered Z23 [facility] [address] [address] 10/08/2024 Chau [place]adaalka [facility] [address] [facility] [address] [place] [address] 10/23/2024 Provider Migration Assessments Encounter Date Diagnosis (ICD Code) Assessment Notes Treatment Notes Treatment Clinical Notes Section Notes 02/16/2024 Depression with anxiety (ICD-10 - F41.8) 04/20/2024 Immunization(s) administered (ICD-10 - Z23) 05/27/2024 Vitamin B12 deficiency (ICD-10 - E53.8) Check vitamin B12 levels given history of deficiency. Please note I will review all labs personally 05/27/2024 Hypertension (ICD-10 - I10) Blood pressure under good control 10/08/2024 Encounter for immunization (ICD-10 - Z23) 10/12/2024 Hypertension (ICD-10 - I10) Will stop losartan-hctz and start amlodipine due to syncopal episode and concern for orthostatic component. Excellent BP control in office today. 10/12/2024 Hypothyroidism (ICD-10 - E03.9) TSH low on labs in May, will recheck today and adjust levothyroxine accordingly. 10/12/2024 Pre-syncope (ICD-10 - R55) Likely orthostatic vs vasovagal due to standing from laying position too quickly. No LOC, hit head, convulsions, read flag symptoms. Witnessed. Counseled on increasing fluid intake and sitting on edge of bed for about 5 minute before standing. Stop losartan-hctz. 05/27/2024 Osteopenia determined by x-ray (ICD-10 - M85.80) Check vitamin D levels today 05/27/2024 Thyroid nodule (ICD-10 - E04.1) Clinically euthyroid, follow TSH 10/12/2024 Asthma, unspecified asthma severity, unspecified whether complicated, unspecified whether persistent (ICD-10 - J45.909) Continue symbicort, start prn albuterol inhaler for wheezing or SOA. 10/12/2024 Seasonal allergies (ICD-10 - J30.2) start flonase, zyrtec daily. 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 I will follow personally 05/27/2024 Type 2 diabetes mellitus with other specified complication (ICD-10 - E11.69) A1c previous under good control, no changes in plan at this point. Check labs 10/12/2024 Encounter for immunization (ICD-10 - Z23) 10/12/2024 Healthcare maintenance (ICD-10 - Z00.00) Tdap given today. Will order TSH and BMP. Aged out of cancer screenings Non-smoker. Mammograms up-to-date, previous DEXA scan reviewed. Children are healthcare surrogate. Depression screening negative. HRA reviewed, 09/20 word recall 05/27/2024 Hyperlipidemia, unspecified (ICD-10 - E78.5) 05/27/2024 Arthritis of right knee (ICD-10 - M17.11) X-ray shows significant tricompartmental arthritis. She is scheduled for cortisone injection at pain management. She will decide after this if she wants another second opinion from orthopedics. 05/27/2024 Routine medical exam (ICD-10 - Z00.00) Check labs. Healthcare management up-to-date. Scheduled for annual wellness visit in August, update vaccines as noted 05/27/2024 Encounter for immunization (ICD-10 - Z23) Plan Of Treatment Pending Test Test Name Order Date X ray : Chest 04/09/2010 N-BUN, Creatinine 04/09/2010 N-B12 level 01/19/2008 N-Urine Culture and Sensitivity 11/19/19 Urinalysis 10/29/2006 CT Scan : Head, with contrast 10/14/2006 N-TSH (Thyroid Stimulating Hormone) 04/20 H-CRP 08/17/2007 DEXA Hip and Spine - Screening 7 N-CMP 04/29/2013 N-Lipid Panel 04/29/2013 N-sputum culture and sensitivity 014 Physical Therapy 11/18/2014 Physical Therapy 07/17/2011 Physical Therapy 11/23/2014 CT Scan : CT Guided Biopsy 01/14/2014 Mammogram : Bilateral 03/04/2022 N-1,25-Dihydroxyvitamin D 01/27/2009 N-CBC with diff 04/29/2013 C-CBC 07/05/2011 C-CBC 12/28/2013 C-CBC 01/08/2013 C-CMP 01/08/2013 C-CMP 07/05/2011 C-CMP 12/28/2013 C-LIPID PANEL 01/08/2013 C-LIPID PANEL 07/05/2011 C-TSH 07/05/2011 C-TSH 01/08/2013 C-FOLATE 12/30/2013 C-VITAMIN B12 01/08/2013 C-VITAMIN B12 07/05/2011 Urine Culture, Routine 05/15/2017 VENIPUNCT, ROUTINE* 03/29/2016 VENIPUNCT, ROUTINE* 12/29/2015 M-Complete Blood Count Auto Diff 020 M-Comprehensive Metabolic Panel 05/17/20 20 M-Lipid Panel 05/17/2020 M-Thyroid Stimulating Hormone 05/17/2020 M-Vitamin B12 05/17/2020 M-Vitamin B12 02/27/2021 M-Vitamin D 25 Hydroxy 05/17/2020 Insurance Providers Payer Name Payer Address Payer Phone Subscriber Number Group Number Insured Name Patient Relationship to Insured Coverage Start Date Coverage End Date [place] [address] [place] [phone] [id number] Indira Pitt Self - patient is the insured [employer] [address] [place] [address] [id number] Indira Pitt Self - patient is the insured [employer] [address] [place] [address] [address] [place] [address] [phone] ACL Indira Pitt Self - patient is the insured Medications Administered Medication Instructions Date of Administration Dosage Notes Cyanocobalamin/B-12 Pt's Own Medication 07/03/2018 1 mL pt supply Cyanocobalamin/B-12 Pt's Own Medication 04/06/2019 1 mL Cyanocobalamin/B-12 Pt's Own Medication 05/09/2021 1 mL Cyanocobalamin/B-12 Pt's Own Medication 04/27/2021 1 mL Cyanocobalamin/B-12 Pt's Own Medication 04/16/2021 1 mL Cyanocobalamin/B-12 Pt's Own Medication 04/03/2021 1 mL Cyanocobalamin/B-12 Pt's Own Medication 03/30/2021 1 mL Cyanocobalamin/B-12 Pt's Own Medication 03/19/2021 1 mL Cyanocobalamin/B-12 Pt's Own Medication 03/14/2021 1 mL Cyanocobalamin/B-12 Pt's Own Medication 11/23/2018 Cyanocobalamin/B-12 Pt's Own Medication 10/22/2018 1 mL pt supply of B12 Cyanocobalamin/B-12 Pt's Own Medication 09/24/2018 Cyanocobalamin/B-12 Pt's Own Medication 08/06/2018 Cyanocobalamin/B-12 Pt's Own Medication 07/24/2018 1 mL pt supply Cyanocobalamin/B-12 Pt's Own Medication 07/17/2018 Cyanocobalamin/B-12 Pt's Own Medication 07/10/2018 Cyanocobalamin/B-12 Pt's Own Medication 09/15/2017 1 mL Cyanocobalamin/B-12 Pt's Own Medication 09/05/2017 1 mL Cyanocobalamin/B-12 Pt's Own Medication 08/29/2017 1 mL Cyanocobalamin/B-12 Pt's Own Medication 08/11/2017 1 mL Cyanocobalamin/B-12 Pt's Own Medication 07/07/2017 1 mL Cyanocobalamin/B-12 Pt's Own Medication 06/24/2017 Cyanocobalamin/B-12 Pt's Own Medication 06/06/2017 1 mL Cyanocobalamin/B-12 Pt's Own Medication 05/30/2017 1 mL pt supply Cyanocobalamin/B-12 Pt's Own Medication 05/23/2017 1 mL Cyanocobalamin/B-12 Pt's Own Medication 05/15/2017 1 mL pt supply Cyanocobalamin/B-12 Pt's Own Medication 05/17/2016 1 mL Cyanocobalamin/B-12 Pt's Own Medication 05/03/2016 1 mL Cyanocobalamin/B-12 Pt's Own Medication 04/12/2016 1 mL Cyanocobalamin/B-12 Pt's Own Medication 04/04/2016 1 mL Cyanocobalamin/B-12 Pt's Own Medication 03/15/2016 Cyanocobalamin/B-12 Pt's Own Medication 03/04/2016 1 mL Cyanocobalamin/B-12 Pt's Own Medication 02/16/2016 1 mL Cyanocobalamin/B-12 Pt's Own Medication 06/30/2014 Cyanocobalamin/B-12 Pt's Own Medication 03/01/2014 Cyanocobalamin/B-12 Pt's Own Medication 02/15/2014 Cyanocobalamin/B-12 Pt's Own Medication 02/11/2014 Cyanocobalamin/B-12 Pt's Own Medication 02/03/2014 Cyanocobalamin/B-12 Pt's Own Medication 01/25/2014 Cyanocobalamin/B-12 Pt's Own Medication 01/18/2014 Cyanocobalamin/B-12 Pt's Own Medication 01/04/2014 Ceftriaxone 500 11/11/2013 500 mg Ceftriaxone 500 09/21/2013 500 mg Allergy Injection 11/09/2018 Kenalog 06/08/2015 1 mL Kenalog 40mg 02/11/2017 40 mg Cyanocobalamin/B-12 Pt's Own Medication 10/08/2021 1 mL Cyanocobalamin/B-12 Pt's Own Medication 08/15/2021 1 mL Cyanocobalamin/B-12 Pt's Own Medication 08/01/2021 1 mL Cyanocobalamin/B-12 Pt's Own Medication 07/25/2021 1 mL Cyanocobalamin/B-12 Pt's Own Medication 06/22/2021 1 mL Cyanocobalamin/B-12 Pt's Own Medication 06/06/2021 1 mL Cyanocobalamin/B-12 Pt's Own Medication 06/16/2017 Kenalog 40mg 11/21/2016 40 mg Cyanocobalamin/B-12 Pt's Own Medication 02/04/2013 Cyanocobalamin/B-12 Pt's Own Medication 03/02/2013 Cyanocobalamin/B-12 Pt's Own Medication 04/29/2013 Cyanocobalamin/B-12 Pt's Own Medication 08/17/2013 Cyanocobalamin/B-12 Pt's Own Medication 01/04/2016 1 mL Cyanocobalamin/B-12 Pt's Own Medication 01/11/2016 1 mL Kenalog 11/11/2013 1 mL Kenalog 09/21/2013 1 Cyanocobalamin/B-12 Pt's Own Medication 04/19/2016 1 mL Cyanocobalamin/B-12 Pt's Own Medication 04/26/2014 Cyanocobalamin/B-12 Pt's Own Medication 03/25/2014 Medical (General) History Medical History History ICD Code asthma hypertension GERD Hypothyroidism colitis tubular adenoma 02/2017 normal mammogram July 2018 - and agai n August 2020 and normal 02/2022 significant osteopenia on DEXA scan Mark vergara 2018 carotid Doppler April 09 with less than 20% stenosis bilaterally - Less than 50% bilaterally 10/10 Thyroid nodule - unchanged o n repeat US 02/2021 -no change in size in February/2022-1-year follow-up recommended RIGHT ankle fx related to a fall, [address]... st able on 02/07 - one year f/u recommended -and once again stable in February 2022 C-scope done 09/12 with isolated polyp - 5 year f/u recommended Echo 10/10 EF 55% and grade 1 Diastolic d ysfunction Surgical History Surgery Date(Month/Year) back 1983 x 2 hysterectomy cholecystectomy Colonoscopy - tubular adenom a - repeated 04/2017 with tubular adenoma 2011 Hospitalization History Reason Date(Month/Year) back pain/injection above
--- OUTSIDE RECORDS SUMMARY | 2025-01-06 10:59 | XMS_ITS | Clinical Summary ---
Author Organization [facility] Address [address] [facility] [address] [place] [phone] Phone Care Team Providers Care Radar Tester Name Role Phone Unavailable Primary Care Provider Unavailabl e Social History Tobacco Use Types Packs/Day Years Used Date Smoking Tobacco: Never Assessed Comments Unknown Sex and Gender Information Value Date Recorded Sex Assigned at Not on file Legal Sex Female 1:13 PM EST Gender Identity Not on file Sexual Orientation Not on file Plan of Treatment Health Maintenance Due Date Last Done Comments Annual Wellness Exam 1948 Hepatitis C Screening 1965 DTaP/TDaP/Td (1 - Tdap) 1966 Pneumococcal Vaccine 50+ (1 of 1 - PCV) 1997 Zoster (1 of 2) 1997 Bone Density Screening 2012 RSV or 60+ (1 - 1-d ose 75+ series) 2022 COVID-19 Vaccine ( - 2023-2 5 season) 2024 Influenza Vaccine (Season Ended) 2025 Hepatitis B Vaccine Aged Out No longe r eligible based on patient's age to complete this topic Meningococcal B Vaccine Aged Out No l onger eligible based on patient's age to complete this topic
--- OUTSIDE RECORDS SUMMARY | 2025-01-06 10:59 | XMS_ITS | Data Portability ---
Author Organization [facility] Address [address] [facility] [address] [place] [address] Assessment No assessment recorded. Plan of Treatment [...] By Organization Details Last Modified Time 02/11/2018 [id number] Scaphoid Fractures-LC [email or web address] [id number] Not available 01/24/2022 03:47:08 03/24/2018 [id number] Scaphoid Fractures-LC [email or web address] [id number] Not available 01/24/2022 03:47:08 04/24/2018 [id number] Dupuytrens-LC [email or web address] [id number] Not available 01/24/2022 03:47:23 Scaphoid Fractures-LC [email or web address] [id number] Not available 01/24/2022 03:47:08 Reason for Referral None Reported. Results Created Date Observation Date Name Description Value Unit Range Abnormal Flag Note LastModifiedBy Organization Detail LastModifiedTime 04/24/20 18 04/24/2018 XR, wrist , 2 view Adi nielsen [facility] [address] [id number] Mya quiles Name: ROLY PITT Mya quiles [...] Interp reted By: Selam erazo MD Electr on ly Signed By: Selam erazo MD on 10:36 AM DBA_BACKFIL_ [facility] [place] [address] , [place], [address], 01/24/2022 03:50:47 Result Notes Documentation Provider Name and Address Organization Details Recorded Time Xr, Wrist, [facility] [address] [place] [address] Patient Name: ROLY PITT Patient : [id number] Patient Ordering Provider: YONATAN BARGER EXAM DATE: 04/24/2018 EXAM: XR RT WRIST, AP/LAT HISTORY: Follow-up of prior surgery COMPARISON: Intraoperative images dated 03/10/2018 FINDINGS: There is widening of the scapholunate interval and a DISI deformity of the carpal bones. There are mild degenerative changes throughout the wrist. There has been apparent resection of the distal pole of the scaphoid and triscaphe joint arthroplasty. IMPRESSION: 1. The patient is status post resection of the distal pole of the right scaphoid and triscaphe joint arthroplasty. Interpreted By: Jn Baca MD TAN BARGER MD [address] [place] [address], [phone], [facility] 04/24/2018 11:14:20 Medical Equipment None Reported. Allergies Allergen ID Allergen Name Allergen Category Reaction Reaction Severity Criticality Documentation Date Start Date Code Code System Note Provider Name and Address Organization Details Recorded Time 466369 Product containin g penicilli n (product) medicatio n Not available Not available Not available 06/14/20162008 68191 8001 SNOMED Comme nt: RASH; Creat ed By: Butch matt Laurynsofia flores; Creat ed Date: 2008 4:51: 18 PM; Not Available [facility] 6 05:49:21 Medications Name Sig Start Date Stop Date Status Note LastModified by Organization Details LastModified Time magnesium oxide 400 mg (241.3 mg magnesium ) tablet Daily 02/11 completed Frequenc y: daily;Al t Frequenc y: daily;Me dication Descript ion: magnesiu m oxide; Dosage:1 ; Route:or al; refills: 6; Quantity :30 tablet Not Available Not Available Not Available nitroglyc caremlina 0.4 mg sublingua l tablet As needed 02/11 completed Frequenc y: prn;Alt Frequenc y: as direct.; Medicati on Descript ion: nitrogly cerin; Dosage:1 ; Route:greenberg blingual ; refills: PRN 1 yr; Quantity :25 tablet Not Available Not Available Not Available [place] 10 mg-325 mg tablet TAKE 1/2-1 TABLET [...] Updated DateTime 02/11/2018 160.02 cm 24.4 kg/m2 67181.75 g Maritza Martinez [facility] 02/11/2018 10:02:11 Date Recorded Body height Body mass index (BMI) Body weight Provider Name and Address Organization Details Last Updated DateTime 03/24/2018 160.02 cm 24.4 kg/m2 81410.75 g Diane Donaldson [facility] 03/24/2018 14:33:07 Date Recorded Body height Body mass index (BMI) Body weight Provider Name and Address Organization Details Last Updated DateTime 04/24/2018 160.02 cm 24.4 kg/m2 30288.75 g Maritza Martinez [facility] 04/24/2018 10:18:55 Social History Question Answer Notes LastModified by [employer] Details LastModified Time Accident Related Injury Yes Information not available 02/11/2018 What Is Your Level Of Caffeine Consumption? Moderate Information not available 02/11/2018 Which Of Your [...] Status Single Informatio n not available 02/11/2018 Work Related Injury? No Information not available 02/11/2018 Sex: Unknown Functional Status Question Answer Note LastModified by [employer] Details LastModified Time Do you use any illicit or recreational drugs? No Information not available 02/11/2018 What is your level of alcohol consumption? Occasional Information not available 02/11/2018 Are you currently employed? 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 Family History Relationship Description Onset Age of this Age Resolved Age Notes LastModified by Organization Details LastModified Time Father No current problems or disability Not available 02/11 10:03:48 Mother No current problems or disability Not available 02/11 10:03:48 Medical History Condition Response Asthma Y Included as Review of Systems Y Thyroid Disease Y Gynecological HistoryNo gynecological history recorded. Obstetrics History GPAL:G 0 P 0 0 0 0 Past Encounters Encounter ID Performer Location Encounter Start Date Encounter Closed Date Diagnosis/Indication Diagnosis SNOMED-CT Code Diagnosis ICD10 Code Diagnosis Note [id number] YONATAN BARGER MD [facility] [address] [place] [address] 02/11/2018 08:58:41 02/11/2018 10:59:11 Fracture of scaphoid bone of wrist 17981232 S62.011A Right distal one third scaphoid nonunion, symptomati c with underlying STT arthrosis Distal scaphoid excision (Malerich) possible FCR interposit ion [id number] YONATAN BARGER MD SURGERY SCHEDULE [address] [place] [address] 03/10/2018 11:18:37 03/10/2018 11:21:23 [id number] YONATAN BARGER MD [facility] [address] [id number] 03/24/2018 14:25:07 03/24/2018 16:45:03 Fracture of scaphoid bone of wrist 03442486 S62.011A Right distal one third scaphoid nonunion, symptomati c with underlying STT arthrosis 2 weeks status post Distal scaphoid excision (Malerich) . Wrist splint intermitte ntly as needed, may work if comfortabl e, she will work on range of motion of her wrist on her own. Follow-up with x-rays in 4 weeks as a final check [id number] YONATAN BARGER MD [facility] [address] [place] [id number] 04/24/2018 09:53:10 04/24/2018 10:38:59 Fracture of scaphoid bone of wrist 56513440 S62.011A Right distal one third scaphoid nonunion, symptomati c with underlying STT arthrosis 6 weeks status post distal scaphoid excision, doing well. May discontinu e splint as tolerated. Dupuytren' s disease of palm 922439104 M72.0 Without contractur e. Recommend observe, provided pamphlet, follow-up if contractur e develops/t abletop test. Health Concerns Section Related Observation LastModified by Organization Detai ls LastModified Time None Recorded Concern Status LastModified by Organization Details LastModified Time None Recorded Advance Directives Directive None Recorded Payers Insurance Date Sequence Insurance Name Policy Number Policy Gomez Covered Member ID Gomez Member ID Guarantor Name 06/14/2020 1 MEDICARE-ID (MEDICARE) Roly Pitt [id number] Roly Pitt 06/14/2020 2 COMBINED INSURANCE - [employer] (MEDICARE SUPPLEMENT) PLAN F Roly Pitt [id number] Roly Pitt 05/27/2018 2 SECURE ADMINISTRATIVE SERVICES - [place] (MEDICARE SUPPLEMENT) Roly Pitt Notes Date Note Type Note Provider Name and Address Organization Details Recorded Time 02/11/2018 text/html Hand SurgeryRepo rted bypatient.Hand Dominance:right Location:right Severity:pain level 5/10 Duration:date of injury: 11-18-17; 12 weeks Previous Surgery:none Work Related:no Working:retired from work Patient is currently in a:splint; since NovemberNotes:dog pulled her down on 11/18/2017 report on clipboard consult requested by Kuldeep Garcia Fell on outstretched hand, [place] there was no break, she eventually had x-rays Demonstrated distal scaphoid injury. She comes to me for evaluation and possible help in management YONATAN BARGER MD [facility] [place], [address], [facility] 02/11/2018 10:34:03 03/24/2018 text/html Hand SurgeryRepo [...] have alot of pain. YONATAN BARGER MD [address] [place], [address], [facility] 03/24/2018 14:42:24 04/24/2018 text/html Hand SurgeryRepo [...] it was Doing well YONATAN BARGER MD [address] [place], [address], [facility] 04/24/2018 10:36:09 OBGyn Episode No OBEpisode recorded.
[2025-01-06 11:30] VITALS: BP 128/68; PULSE 64; RESP 12; O2SAT 100; BMI 21.2
== END 2025-01-06 23:59 | disposition home or self-care (01) ==
PROVIDERS: PCP Internal Medicine Adolescent Medicine; Visit Provider Nurse Practitioner Family
DX: M47.816 Spondylosis without myelopathy or radiculopathy, lumbar region (principal); Z98.890 Other specified postprocedural states; Z79.899 Other long term (current) drug therapy
CPT/HCPCS: 99212; G0463

== ENCOUNTER 2025-02-01 08:38 | Day surgery (SDC) | payer MEDICARE, OTHER, SELFPAY ==
[2025-02-01 08:49] VITALS: BP 139/73; PULSE 63; RESP 18; O2SAT 100; BMI 21.2
[2025-02-01] MEDS: BUPIVACAINE 0.25% 10ML INJ 25 MG IJ (08:59)
[2025-02-01] MEDS: LIDOCAINE 1% 5ML PF VIAL 5 ML (08:59)
--- NOTE | 2025-02-01 08:59 | P.PCN_ITS ---
Procedure Date: 02/01/25 Time: 09:00 Anesthesiologist:: Matthieu Richardson CRNA Complications:: None Pre-procedure Diagnosis:: Degenerative disc lumbar spine multilevels. Lumbar radiculopathy. Lumbar spondylosis. Multilevel lumbar facet arthropathy. Post-procedure Diagnosis:: Same. Indications for Procedure:: Patient is a very pleasant 79-year-old female comes our clinic today for ROUND ONE of local only bilateral L4-5, L5-S1 medial branch blocks/facet injections. Patient describes low lumbar back pain as constant, dull, aching. She reports difficulty with sitting and/or standing for any length of time. She has difficulty with lumbar flexion, extension, left and right rotation. She rates her pain 7/10. Procedure Details:: Informed consent was obtained and the risk and benefits of the procedure was explained to the patient. Patient was taken to the procedure room where noninvasive monitors were placed, including noninvasive blood pressure cuff as well as pulse oximeter. The area over the lumbar spine was cleansed using chlorh exidine as a cleansing solution. I anesthetized the skin and subcutaneous tissues with 1% Lidocaine. I placed 22-gauge spinal needles into the facet joint/ medial branches of L4-L5, and L5-S1 bilaterally. Needle placement was confirmed with fluoroscopy. After confirmation of needle placement, each site was injected with 1 mL of 1% lidocaine and 0.25 % Marcaine 1 mL. Patient tolerated the procedure without difficulty. There were no complications. Plan and Disposition:: Patient was discharged without incident.
[2025-02-01 09:00] VITALS: BP 150/75; PULSE 76; RESP 18; O2SAT 100
[2025-02-01 09:01] VITALS: BP 150/75; PULSE 76; RESP 18; O2SAT 100
[2025-02-01 09:14] VITALS: BP 141/72; PULSE 65; RESP 18; O2SAT 100
== END 2025-02-01 09:14 | disposition home or self-care (01) ==
PROVIDERS: PCP Internal Medicine Adolescent Medicine; Visit Provider Nurse Anesthetist, Certified Registered
DX: M47.816 Spondylosis without myelopathy or radiculopathy, lumbar region (principal); M51.16 Intervertebral disc disorders with radiculopathy, lumbar region; G89.29 Other chronic pain; M54.50 Low back pain, unspecified; J44.89 Other specified chronic obstructive pulmonary disease; I10 Essential (primary) hypertension; E78.5 Hyperlipidemia, unspecified; I25.10 Atherosclerotic heart disease of native coronary artery without angina pectoris; I08.0 Rheumatic disorders of both mitral and aortic valves; Z79.82 Long term (current) use of aspirin; Z79.899 Other long term (current) drug therapy; Z79.51 Long term (current) use of inhaled steroids; Z88.0 Allergy status to penicillin
CPT/HCPCS: 64493; 64494; J0665; J2003

== ENCOUNTER 2025-02-14 14:30 | Outpatient (POV) | payer MEDICARE, OTHER, SELFPAY ==
--- OUTSIDE RECORDS SUMMARY | 2024-10-23 17:30 | XMS_ITS ---
Author Organization [facility] Address [address] [facility] [address] [place] [address] Care Team Providers Care Director Camp Name Role Phone Chau Durham Primary Care Provider Migration, Provider Unavailable Unavailable Allergies Allergen (clinical drug ingredient) Drug/Non Drug Allergy documented on EMR Reaction Allergy Type Onset Date Status Penicillin Unknown Drug Allergy Active [facility] Conversion Encounter Medications Medication SIG (Take, Route, [...] Active Encounters Encounter Location Date Provider Diagnosis [facility] [address] [facility] [address] [place] [address] 10/23/2024 Provider Migration Plan Of Treatment Medication [...] Indira PITT RDOB:[birth year] (79 yo F)Acc No.[id number]:10/23/2024 Patient: Indira GUZMAN Provider: Sawyer Negron :1945 A ge:79 Y S ex:Female Date:10/23/2024 Address:[facility] [address] [id number] Pcp:Chau Durham Subjective: * Chief Complaints: * 1 . [facility] En[facility]. * Medical History: * Medications: [...] Electronic signature of Prov ider Migration on 02/14/2025 at 02:36 PM EDT Sign off status: Pending * Provider: Sawyer Negron Date: 0 10/23/2024 Generated for Pipe swain/Faxing/eTransmitting on: 0 02/14/2025 02:36 PM EDT
--- OUTSIDE RECORDS SUMMARY | 2024-11-09 08:30 | XMS_ITS ---
Author Organization [facility] Address [address] [place] [address] Care Team Providers Care Master Mechanic Name Role Phone Chau Durham Primary Care Provider REASON FOR VISIT 4 week ck Encounters Encounter Location Date Provider Diagnosis [facility] [address] [address] 11/09/2024 Chau Durham Plan Of Treatment No Information Progress Notes * Indira PITT RDOB:[birth year] (79 yo F)Acc No.[id number]:11/09/2024 Progress Notes Patient: Indira GUZMAN Provider: Deon Durham MD :1945 A ge:79 Y S ex:Female Date:11/09/2024 Address:[address] [id number] Subjective: * Chief Complaints: * 1 . 4 week ck. * Medical History: Objective: * Vitals: Assessment: Plan: * Treatment: * * Electronic signature of Dilip Durham MD FAAP on 02/14/2025 at 02:35 PM EDT Sign off status: Pending * Provider: Deon Durham MD Date: 11/09/2024 Generated for Printi ng/Fadanteg/eTransmitting on: 02/14/2025 02:35 PM EDT
--- OUTSIDE RECORDS SUMMARY | 2025-02-14 14:36 | XMS_ITS | Clinical Summary ---
Author Organization [facility] Address [address] [facility] [address] [place] [phone] Phone Care Team Providers Care Swimming Pool Maintenance Supervisor Name Role Phone Unavailable Primary Care Provider [...] - 2023-2 5 season) 2024 Influenza Vaccine (#1) 2025 Hepatitis B Vaccine Aged Out No longe r eligible based on patient's age to complete this topic Meningococcal B Vaccine Aged Out No l onger eligible based on patient's age to complete this topic
--- OUTSIDE RECORDS SUMMARY | 2025-02-14 14:36 | XMS_ITS | Clinical Summary ---
Author Organization Healthcare Address [address] [place] [address] Care Team Providers Care Forestry Aid Name Role Phone Chau Durham MD Primary Care Provider [phone] Social History Tobacco Use Types Packs/Day Years [...] Health Maintenance Due Date Last Done Comments [facility]-Bone Density Scan 1945 [facility]-Depression Screening 1945 [facility]-Infant/Child/Adol SDOH Screenings 1945 [facility]- SDOH Screenings 1965 [facility]-Adult SDOH Screenings 1965 [facility]-DTaP,Tdap,and Td Vaccine s (1 - Tdap) 1966 [facility]-Pneumococcal Vaccine: 50 + Years (1 of 1 - PCV) 1997 [facility]-Zoster Vaccines (1 of 2) 1997 [facility]-RSV Vaccine: 60+ Years o r (1 - 1-dose 75+ series) 2022 [id number] Vaccine (1 - 20 24-25 season) 2024 [facility]-Influenza Vaccine (#1) 2025 HPV Vaccines Aged Out No longer [...] age to complete this topic Care Teams Forestry Aid Relationship Specialty Start Date End Date Chau Durham MD [address] [place] [address] [place] [address] PCP - General 12/01/20
--- OUTSIDE RECORDS SUMMARY | 2025-02-14 14:37 | XMS_ITS | Patient Health Record ---
Author Organization [facility] Address [address] [place] [address] Care Team Providers Care [facility] Counselor Name Role Phone Chau Durham Primary Care Provider Migration, Provider Unavailable Unavailable Allergies Allergen (clinical drug ingredient) Drug/Non Drug Allergy documented on EMR Reaction Allergy Type Onset Date Status Penicillin Unknown Drug Allergy Active Results Component Value Reference Range Notes HEMOGLOBIN A1c (496) Reviewed date:05/31/2024 10:01:04 AM Interpretation: Performing Lab:ELIZABETH, [facility] [id number], Meet [place] FriendsQcvkYH[address] Monico Dumont Notes/Report: FASTING: NO FASTING:NO NON-FASTING; NON-FASTING; NON-FASTING; NON-FASTING; NON-FAST HEMOGLOBIN A1c 5.0 <5.7 % of total [...] diagnosis of diabetes in children. According to [place] [employer] Association (ADA) guidelines, hemoglobin A1c <7.0% represents optimal control in non- diabetic patients. Different metrics may apply to specific patient populations. Standards of Medical Care in Diabetes(ADA). CBC (INCLUDES DIFF/PLT) (639 9) Reviewed date:05/31/2024 10:01:04 AM Interpretation: Performing Lab:ELIZABETH, [facility] [address], [place]zy[place] Monico Dumont Notes/Report: NON-FASTING; NON-FASTING; NON-FASTING; NON-FASTING; [...] MPV 11.1 7.5-12.5 fL ABSOLUTE NEUTROPHILS [phone] cells/uL ABSOLUTE LYMPHOCYTES 9576 358-0335 cells/uL ABSOLUTE MONOCYTES 362 200-950 cells/uL ABSOLUTE EOSINOPHILS 183 15-500 cells/uL ABSOLUTE BASOPHILS 52 0-200 cells/uL NEUTROPHILS 66 LYMPHOCYTES 21.3 MONOCYTES 7.7 EOSINOPHILS 3.9 BASOPHILS 1.1 COMPREHENSIVE METABOLIC PANE Devin (63176) Reviewed date:05/31/2024 10:01:03 AM Interpretation: Performing Lab:CB, [facility] [address], [facility] CenterTfkxZW[address] Monico Dumont Notes/Report: NON-FASTING; NON-FASTING; NON-FASTING; NON-FASTING; [...] (7600) Reviewed date:05/31/2024 10:01:03 AM Interpretation: Performing Lab:ELIZABETH, [facility] [facility], [place]PbauWG[address] Monico Dumont Notes/Report: NON-FASTING; NON-FASTING; NON-FASTING; NON-FASTING; [...] LDL-C. Arnav SS et al. KATHI. 2013;310(19): 6481-3488 (http://education.Borqs.[place]scape the City/faq/MYX921) CHOL/HDLC RATIO 2.9 <5.0 (calc) NON HDL CHOLESTEROL 108 <130 mg/dL (calc) For patients with diabetes plus 1 major ASCVD risk factor, treating to a non-HDL-C goal of <100 mg/dL (LDL-C of <70 mg/dL) is considered a therapeutic option. THYROID PANEL WITH TSH (7444 ) Reviewed date:05/31/2024 10:01:03 AM Interpretation: Performing Lab:ELIZABETH, [facility] [id number], [place]TfpaEL[address] Monico Dumont Notes/Report: NON-FASTING; NON-FASTING; NON-FASTING; NON-FASTING; NON-FAST FASTING:NO FASTING: NO T3 UPTAKE 33 22-35 % T4 (THYROXINE), TOTAL 6.6 5.1-11.9 mcg/dL FREE T4 INDEX (T7) 2.2 1.4-3.8 TSH 0.12 0.40-4.50 mIU/L THYROID PANEL WITH TSH (7444 ) Reviewed date:10/14/2024 03:00:05 PM Interpretation: Performing Lab:ELIZABETH [facility] [id number] [place], [place]mayFmwxHQ[address] Monico Dumont Notes/Report: NON-FASTING; NON-FASTING T3 UPTAKE 35 22-35 % T4 (THYROXINE), TOTAL 5.2 5.1-11.9 mcg/dL FREE T4 INDEX (T7) 1.8 1.4-3.8 TSH 4.27 0.40-4.50 mIU/L BASIC METABOLIC PANEL (64335 ) Reviewed date:10/14/2024 03:00:05 PM Interpretation: Performing Lab:ELIZABETH [facility] [id number] [facility] [place], Meet My FriendsChjsHD[address] Monico Dumont Notes/Report: NON-FASTING; NON-FASTING GLUCOSE 91 [...] 27 20-32 mmol/L CALCIUM 9.2 8.6-10.4 mg/dL VITAMIN B12/FOLATE, SERUM PA LARISSA (6102) Reviewed date:05/31/2024 10:01:04 AM Interpretation: Performing Lab:ELIZABETH [facility] [address], SummayAibzKL[address] Monico Dumont Notes/Report: NON-FASTING; NON-FASTING; NON-FASTING; NON-FASTING; NON-FAST FASTING:NO FASTING: NO VITAMIN B12 116 237-8917 pg/mL Please Note: Although the reference range [...] Range Low: <3.4 Borderline: 3.4-5.4 Normal: >5.4 VITAMIN D,25-OH,TOTAL,IA (17 306) Reviewed date:05/31/2024 10:01:04 AM Interpretation: Performing Lab:ELIZABETH, [facility] L[address] [facility], [place] LopezUkdgZM[address] Monico Dumont Notes/Report: NON-FASTING; NON-FASTING; NON-FASTING; NON-FASTING; [...] D, (D2,D3), LC/MS/MS is recommended: order code 75576 (patients >2yrs). See Note 1 Note 1 For additional information, please refer to http://education.Opsens.[place]scape the [place]/faq/BQI026 (This link is being provided for informational/ educational purposes only.) Medications Medication SIG (Take, Route, Frequency, Duration) Notes Start Date End Date Status Zithromax Z-Godwin 250 MG 2 tablets on the first day, then 1 tablet daily for 4 days orally once a day; Duration: 5 days 10/22/2024 Active busPIRone HCl 10 MG 1 tab(s) orally three times a day; Duration: 90 days Active Promethazine-DM 6.25-15 MG/5ML 5 mL orally every 6 hours; Duration: 10 days 10/22/2024 Active ALBUTEROL (EQV-PROVENTIL HFA) 90 MCG/INH 2 INH INHALED EVERY 6 HOURS; Duration: 30 DAYS *Please review for potential replacement for e-prescription and drug interaction check* 10/13/2024 Active Promethazine-DM 6.25-15 MG/5ML 5 mL orally every 6 hours; Duration: 10 days 10/13/2024 Active amLODIPine Besylate 5 MG 1 tab(s) orally once a day; Duration: 30 days 10/13/2024 Active Isosorbide Mononitrate ER 60 MG 1.5 tab(s) orally once a day (in the morning) Active Metoprolol Tartrate 25 MG 1 tab(s) orally 2 times a day; Duration: 90 days Active Triamcinolone Acetonide 0.5 % 1 obie applied topically 2 times a day; Duration: 7 day(s) 02/11/2017 Active Levothyroxine Sodium 125 MCG 1 tab(s) orally once a day; Duration: 90 days Active Lisinopril 10 MG 1 tab(s) orally once a day; Duration: 30 day(s) 05/28/2019 Active ADULT ASPIRIN REGIMEN 81 MG 1 TAB(S) ORALLY ONCE A DAY; Duration: 30 DAY(S) *Please review for potential replacement for e-prescription and drug interaction check* 06/06/2022 Active DULoxetine HCl 30 MG 1 cap(s) orally once a day; Duration: 90 days Active MOBIC 15 MG 1 TAB(S) ORALLY ONCE A DAY; Duration: 90 DAYS prn *Please review for potential replacement for e-prescription and drug interaction check* Active Linzess 290 MCG 1 cap(s) orally once a day; Duration: 30 day(s) 09/03/2022 Active Symbicort 80-4.5 MCG/ACT 2 puff(s) inhaled 2 times a day; Duration: 90 days Active Escitalopram Oxalate 10 MG 1 tab(s) orally once a day; Duration: 90 days Active Immunizations Vaccine Route Administration Date Status Comme nts Tetanus Toxoid Unknown 01/12/2007 Administered ZZ Unknown 02/09/2007 Administered Tenivac (Td) 7 + yrs IM Intramuscular 03/25/2014 Administe red SHINGRIX IM Intramuscular 10/08/2024 Administered SHINGRIX IM Intramuscular 05/27/2024 Administered Prevnar PCV-13 (Pneumococcal conjugate 13) IM Intramuscular 01/23/2017 Administered Pneumovax 23 IM Intramuscular 06/23/2018 Administered Pneumococcal Vaccine Unknown 05/30/2011 Administered Influenza (Fluzone)--Medicare only IM Intramuscular 2017 Administered Influenza (Fluzone)--Medicare only IM Intramuscular 04/19/2016 Administered Influenza (Fluzone)--Medicare only IM Intramuscular 04/26/2014 Administered Influenza (Fluzone)--Medicare only Unknown 04/21/2012 Administered Fluzone High Dose IM Intramuscular 04/20/2024 Administered Fluzone High Dose IM Intramuscular 05/09/2021 Administered Fluzone High Dose IM Intramuscular 08/04/2020 Administered Fluzone High Dose IM Intramuscular 04/06/2019 Administered Fluzone High Dose IM Intramuscular 07/03/2018 Administered Fluvirin--Influenza vaccine 3+ year Unknown 05/22/2010 Administered Boostrix IM Intramuscular 10/12/2024 Administered Arexvy IM Intramuscular 09/16/2023 Administered Problems Problem Type SNOMED Code ICD Code Onset Dates Problem Status W/U Status Risk Notes Problem Type 2 diabetes mellitus with other specified complication (E11.69) Active confirmed Problem Intestinal malabsorption (981472878) Intestinal malabsorption, 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) Active confirmed Problem Vitamin B12 deficiency (481617592) Vitamin B12 deficiency (E53.8) Active confirmed Problem Mixed anxiety and depressive disorder (415472049) Depression with anxiety (F41.8) Active confirmed Problem Hypothyroidism (64037042) Hypothyroidism (E03.9) Active confirmed Problem Hypertension (66390647) Hypertension (I10) Active confirmed Problem Exacerbation of asthma (408723282) Asthma exacerbation (J45.901) Active confirmed Problem Seasonal allergy (694475761) Seasonal allergies (J30.2) Active confirmed Problem Hyperlipidemia (97988288) Hyperlipidemia, unspecified (E78.5) Active confirmed Problem Type 2 diabetes mellitus well controlled (268040401) Controlled diabetes mellitus type II without complication (E11.9) Active confirmed Problem Thyroid nodule (114176296) Thyroid nodule (E04.1) Active confirmed Problem Constipation (13170214) Constipation, unspecified constipation type (K59.00) Active confirmed Problem Inflammation of joint of shoulder region (560264559) Arthritis of shoulder region, 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) Active confirmed Problem Pulmonary nodule (937131462) Pulmonary nodule (R91.1) Active confirmed Problem Acute severe exacerbation of mild persistent asthma (disorder) (017827810) Mild persistent asthma with acute exacerbation (J45.31) Active confirmed Problem Vitamin B12 deficiency (276040211) History of non anemic vitamin B12 deficiency (Z86.39) Active confirmed Problem Depressed (95974785) Depressed (F32.9) Active confirmed Problem Osteopenia (disorder) (860397519) Osteopenia determined by x-ray (M85.80) Active confirmed Problem Raynaud's disease (157704303) Raynaud's disease without gangrene (I73.00) Active confirmed Problem Essential hypertension (57857899) Accelerated hypertension (I10) Active confirmed Problem Arthritis of right knee (5540126596792805) Arthritis of right knee (M17.11) Active confirmed Problem Mitral and aortic regurgitation (185092653) Mitral and aortic regurgitation (I08.0) Active confirmed Problem Asthma without status asthmaticus (49714720) Asthma, unspecified asthma severity, unspecified whether complicated, unspecified whether persistent (J45.909) Active confirmed Problem Raynaud's disease (030745410) Raynaud's phenomenon without gangrene (I73.00) Active confirmed Problem Atherosclerotic heart disease of [place] coronary artery without angina pectoris (354374971800741) Arteriosclerosis of coronary artery (I25.10) Active confirmed Vital Signs Heart Rate 80 /min 10/12/2024 Temperature 97.9 degrees Fahrenheit 10/12/2024 Blood pressure diastolic 80 mm Hg 10/12/2024 Height 5 ft 3 in in 10/12/2024 Blood pressure systolic 118 mm Hg 10/12/2024 Weight 122 lbs 10/12/2024 BMI 21.61 kg/m2 10/12/2024 Encounters Encounter Location Date Provider Diagnosis [facility] [place] [address] [address] 02/16/2024 Chau Durham Depression with anxiety F41.8 [facility] [place] [address] [address] 02/25/2024 Chau Besson [facility] [place] [address] [address] 05/17/2024 Chau Besson [facility] [place] [address] [address] 05/20/2024 Chau Besson [facility] [address] [address] 10/13/2024 Chau Besson [facility] [place] [address] [address] 10/22/2024 Chau Besson [place] [address] [address] 02/09/2025 Chau Besson [place] [address] 10/12/2024 Chau Besson Hypertension I10 ; Hypothyroidism E03.9 ; Pre-syncope R55 ; Asthma, unspecified asthma severity, unspecified whether complicated, unspecified whether persistent J45.909 ; Seasonal allergies J30.2 ; Encounter for immunization Z23 and Healthcare maintenance Z00.[address] [address] 05/27/2024 Chau Besson Vitamin B12 deficien cy E53.8 ; Hypertension I10 ; Osteopenia determined by x-ray M85.80 ; Thyroid nodule E04.1 ; Hyperlipemia, idiopathic familial E78.5 ; Type 2 diabetes mellitus with other specified complication E11.69 ; Hyperlipidemia, unspecified E78.5 ; Arthritis of right knee M17.11 ; Routine medical exam Z00.00 and Encounter for immunization Z23 [place] [address] [address] 04/20/2024 Chau Besson Immunization(s) administered Z23 [address] [address] 10/08/2024 Chau Besson Encounter for immunization Z23 [facility] [place] [address] [facility] [address] [place] [address] 10/23/2024 Provider Migration Assessments Encounter Date Diagnosis [...] level 01/19/2008 N-Urine Culture and Sensitivity 11/19/19 07 Urinalysis 10/29/2006 CT Scan : Head, with contrast 10/14/2006 N-TSH (Thyroid Stimulating Hormone) 04/20 H-CRP 08/17/2007 DEXA Hip and Spine - Screening 7 N-CMP 04/29/2013 N-Lipid Panel 04/29/2013 N-sputum culture and sensitivity 014 Physical Therapy 11/18/2014 Physical Therapy 07/17/2011 Physical Therapy 11/23/2014 CT Scan : CT Guided Biopsy 01/14/2014 Mammogram : Bilateral 03/04/2022 N-1,25-Dihydroxyvitamin D 01/27/2009 N-CBC with diff 04/29/2013 C-CBC 12/28/2013 C-CBC 07/05/2011 C-CBC 01/08/2013 C-CMP 01/08/2013 C-CMP 07/05/2011 C-CMP 12/28/2013 C-LIPID PANEL 01/08/2013 C-LIPID PANEL 07/05/2011 C-TSH 01/08/2013 C-TSH 07/05/2011 C-FOLATE 12/30/2013 C-VITAMIN B12 07/05/2011 C-VITAMIN B12 01/08/2013 Urine Culture, Routine 05/15/2017 VENIPUNCT, ROUTINE* 03/29/2016 VENIPUNCT, ROUTINE* 12/29/2015 M-Complete Blood Count Auto Diff 020 M-Comprehensive Metabolic Panel 05/17/20 20 M-Lipid Panel 05/17/2020 M-Thyroid Stimulating Hormone 05/17/2020 M-Vitamin B12 02/27/2021 M-Vitamin B12 05/17/2020 M-Vitamin D 25 Hydroxy 05/17/2020 Insurance Providers Payer Name Payer Address Payer Phone Subscriber Number Group Number Insured Name Patient Relationship to Insured Coverage Start Date Coverage End Date [place]IC[place] [address] [place] [address] [id number] Indira Pitt Self - patient is the insured [employer] [address] [place] [address] [id number] Indira Pitt Self - patient is the insured [employer] [address] [place] [address] [address] [place] [address] [facility] Indira Pitt Self - patient is the insured Medications Administered Medication Instructions Date of Administration Dosage Notes Allergy Injection 11/09/2018 Cyanocobalamin/B-12 Pt's Own Medication 05/15/2017 1 mL pt supply Cyanocobalamin/B-12 Pt's Own Medication 05/23/2017 1 mL Cyanocobalamin/B-12 Pt's Own Medication 05/30/2017 1 mL pt supply Cyanocobalamin/B-12 Pt's Own Medication 06/06/2017 1 mL Cyanocobalamin/B-12 Pt's Own Medication 06/16/2017 Cyanocobalamin/B-12 Pt's Own Medication 06/24/2017 Cyanocobalamin/B-12 Pt's Own Medication 07/07/2017 1 mL Cyanocobalamin/B-12 Pt's Own Medication 08/11/2017 1 mL Cyanocobalamin/B-12 Pt's Own Medication 08/29/2017 1 mL Cyanocobalamin/B-12 Pt's Own Medication 09/05/2017 1 mL Cyanocobalamin/B-12 Pt's Own Medication 09/15/2017 1 mL Cyanocobalamin/B-12 Pt's Own Medication 07/03/2018 1 mL pt supply Cyanocobalamin/B-12 Pt's Own Medication 07/10/2018 Cyanocobalamin/B-12 Pt's Own Medication 07/17/2018 Cyanocobalamin/B-12 Pt's Own Medication 07/24/2018 1 mL pt supply Cyanocobalamin/B-12 Pt's Own Medication 08/06/2018 Cyanocobalamin/B-12 Pt's Own Medication 09/24/2018 Cyanocobalamin/B-12 Pt's Own Medication 10/22/2018 1 mL pt supply of B12 Cyanocobalamin/B-12 Pt's Own Medication 11/23/2018 Cyanocobalamin/B-12 Pt's Own Medication 04/06/2019 1 mL Cyanocobalamin/B-12 Pt's Own Medication 03/14/2021 1 mL Cyanocobalamin/B-12 Pt's Own Medication 03/19/2021 1 mL Cyanocobalamin/B-12 Pt's Own Medication 03/30/2021 1 mL Cyanocobalamin/B-12 Pt's Own Medication 04/03/2021 1 mL Cyanocobalamin/B-12 Pt's Own Medication 04/16/2021 1 mL Cyanocobalamin/B-12 Pt's Own Medication 04/27/2021 1 mL Cyanocobalamin/B-12 Pt's Own Medication 05/09/2021 1 mL Cyanocobalamin/B-12 Pt's Own Medication 06/06/2021 1 mL Cyanocobalamin/B-12 Pt's Own Medication 06/22/2021 1 mL Cyanocobalamin/B-12 Pt's Own Medication 07/25/2021 1 mL Cyanocobalamin/B-12 Pt's Own Medication 08/01/2021 1 mL Cyanocobalamin/B-12 Pt's Own Medication 08/15/2021 1 mL Cyanocobalamin/B-12 Pt's Own Medication 05/17/2016 1 mL Cyanocobalamin/B-12 Pt's Own Medication 05/03/2016 1 mL Cyanocobalamin/B-12 Pt's Own Medication 04/19/2016 1 mL Cyanocobalamin/B-12 Pt's Own Medication 04/12/2016 1 mL Cyanocobalamin/B-12 Pt's Own Medication 04/04/2016 1 mL Cyanocobalamin/B-12 Pt's Own Medication 03/15/2016 Cyanocobalamin/B-12 Pt's Own Medication 03/04/2016 1 mL Cyanocobalamin/B-12 Pt's Own Medication 02/16/2016 1 mL Cyanocobalamin/B-12 Pt's Own Medication 01/11/2016 1 mL Cyanocobalamin/B-12 Pt's Own Medication 01/04/2016 1 mL Cyanocobalamin/B-12 Pt's Own Medication 06/30/2014 Cyanocobalamin/B-12 Pt's Own Medication 04/26/2014 Cyanocobalamin/B-12 Pt's Own Medication 03/25/2014 Cyanocobalamin/B-12 Pt's Own Medication 03/01/2014 Cyanocobalamin/B-12 Pt's Own Medication 02/15/2014 Cyanocobalamin/B-12 Pt's Own Medication 02/11/2014 Cyanocobalamin/B-12 Pt's Own Medication 02/03/2014 Cyanocobalamin/B-12 Pt's Own Medication 01/25/2014 Cyanocobalamin/B-12 Pt's Own Medication 01/18/2014 Cyanocobalamin/B-12 Pt's Own Medication 01/04/2014 Cyanocobalamin/B-12 Pt's Own Medication 08/17/2013 Cyanocobalamin/B-12 Pt's Own Medication 04/29/2013 Cyanocobalamin/B-12 Pt's Own Medication 03/02/2013 Cyanocobalamin/B-12 Pt's Own Medication 02/04/2013 Ceftriaxone 500 11/11/2013 500 mg Ceftriaxone 500 09/21/2013 500 mg Cyanocobalamin/B-12 Pt's Own Medication 10/08/2021 1 mL Kenalog 40mg 11/21/2016 40 mg Kenalog 40mg 02/11/2017 40 mg Kenalog 09/21/2013 1 Kenalog 11/11/2013 1 mL Kenalog 06/08/2015 1 mL Medical (General) History Medical History History ICD Code asthma hypertension GERD Hypothyroidism colitis tubular adenoma 02/2017 normal mammogram July 2018 - and agai n August 2020 and normal 02/2022 significant osteopenia on DEXA scan Mark ursula 2018 carotid Doppler April 09 with less [...]
[2025-02-14 14:46] VITALS: BP 110/78; PULSE 78; RESP 14; O2SAT 100; BMI 21.2
--- NOTE | 2025-02-14 14:53 | EXP.PAIN.SOA ---
[facility] Disclaimer: The information contained in this section may have been updated after the patient was seen, as this information can be updated by other users. Medical History Abnormal findings on diagnostic imaging of heart and coronary circulation Chronic obstructive pulmonary disease, unspecified HTN (hypertension) Mitral valve prolapse Mitral regurgitation GERD (gastroesophageal reflux disease) Coronary artery disease Carotid artery stenosis HLD (hyperlipidemia) Syncope and collapse Aortic regurgitation Angina pectoris Syncope Cataract Asthma HTN (hypertension) Surgical History History of cardiac cath History of loop recorder History of appendectomy History of colonoscopy History of cholecystectomy History of tonsillectomy Status post spinal disc removal History of hysterectomy History of Family History Other Family history of hypertension Family history of myocardial infarction Social History Smoking Status: Never smoker second hand exposure: No alcohol intake: current alcohol intake frequency: a few times a month substance use type: denies use current occupational status: other Travel in the last 8 weeks?: None household members: significant other and none housing: house education level: high school current occupational exposures/hazards: No caffeine: Yes special bimal needs: No agree to transfusion: No do you feel safe at home: Yes victim of physical abuse: No victim of emotional abuse: No victim of sexual abuse: No would you like helpful sources: No PM Subjective & Objective Subjective Subjective:: Patient is a pleasant 79-year-old female who presents today for her diagnostic lumbar medial branch block bilaterally L4-L5 L5-S1 follow-up on 02/01/2025. Today she rates her pain a 7 out of 10. Patient states that it is all in her low back and denies any radiating symptoms to her legs. Patient does state initially following this procedure she did have at least 80% improvement or more. She states then after a few hours it did decrease down to what she would rate about 50% relief and then was back to her baseline within 24 hours. The patient does state the pain is back to interfering with her ability perform activities of daily living such as cooking and cleaning. Patient does state that she would like to get back in for the repeat injection as she does not want to proceed forward with this option. Patient does state that it did really seem to help. She denies any new falls or injuries. She is managed with compounded cream and tizanidine 4 mg at bedtime. Her Ulisses has been reviewed and is appropriate. Review of Systems: General: No recent weight changes, no fever, no sleep disturbances Respiratory: No cough, no shortness of air, no recurring pulmonary infections Cardiovascular/peripheral vascular: No chest pain, no palpitations, no edema, no shortness of breath Gastrointestinal: No new onset incontinence, normal bowel movements reported Genitourinary: No new onset incontinence Musculoskeletal: Low back pain Psychiatric: [Normal mood/affect] Neurological: [Denies weakness in extremities], [denies balance issues] Pain at rest (0-10 scale): 7 Objective Objective:: Physical Exam: General: Alert and oriented x3, no acute distress, pleasant and cooperative Lungs: Respirations even and unlabored, symmetrical chest expansion Eyes: PERRL Musculoskeletal: Flexion and extension of lumbar [spine] somewhat guarded secondary to pain, [antalgic gait noted] positive Kemps test Neurological: Speech clear, no gross sensory deficit Has patient had previous pain injection?: Yes Percent improvement in pain since last injection: 80% the first 3 hours then 50% the remaining 24 ho Conservative treatment options previously tried: Home exercise plan Length of treatment: Longer than 12 weeks Meds Home Medications and Allergies Home Medications ?Medication ?Instructions ?Recorded ?Confirmed ?Type buspirone 10 mg tablet 10 mg PO TID Anxiety 12/01/18 02/14/25 History metoprolol tartrate 50 mg tablet 25 mg PO BID blood pressure 11/09/20 02/14/25 History duloxetine 30 mg capsule,delayed 30 mg PO DAILY MOOD 06/21/21 02/14/25 History release aspirin 81 mg tablet,delayed 81 mg PO DAILY 10/29/23 02/14/25 History release (Adult Aspirin Regimen) budesonide-formoterol HFA 160 1 puff inhalation DIRECTED 04/29/24 02/14/25 History mcg-4.5 mcg/actuation aerosol Breathing Problems inhaler levothyroxine 125 mcg tablet 125 mcg PO DAILY 04/29/24 02/14/25 History isosorbide mononitrate 30 mg 30 mg PO DAILY BLOOD PRESSURE #90 11/02/24 02/14/25 Rx tablet,extended release 24 hr tabs albuterol sulfate 90 mcg/actuation 90 mcg inhalation DIRECTED 11/09/24 02/14/25 History aerosol inhaler codeine 10 mg-guaifenesin 100 mg/5 10 ml PO Q4-6H PRN cough #120 mL 11/09/24 02/14/25 Rx mL oral liquid escitalopram oxalate 10 mg tablet 10 mg PO DIRECTED 11/09/24 02/14/25 History atorvastatin 40 mg tablet (Lipitor) 40 mg PO DAILY #30 tabs 12/16/24 02/14/25 Rx nitroglycerin 0.4 mg sublingual 0.4 mg sublingual Q5-15M PRN chest 12/16/24 02/14/25 Rx tablet pain #30 tabs tizanidine 4 mg tablet See Rx Instructions .Route 01/06/25 02/14/25 Rx .COMPLEX #90 tabs losartan 100 See Rx Instructions .Route 01/24/25 02/14/25 Rx mg-hydrochlorothiazide 12.5 mg .COMPLEX blood pressure #90 tabs tablet New Prescriptions to Start Prescriptions: Allergies Allergy/AdvReac Type Severity Reaction Status Date / Time Penicillins (PENICILLINS) Allergy Unknown I-RASH Verified 12/16/24 09:10 Assessment and Plan *Assessment and plan (1) Lumbar facet arthropathy: Status: Acute Category: Medical Code(s): M47.816 - Spondylosis without myelopathy or radiculopathy, lumbar region (2) Low back pain: Status: Acute Qualifiers: Chronicity: chronic Back pain laterality: bilateral Sciatica presence: without sciatica Qualified Code(s): M54.50 - Low back pain, unspecified; G89.29 - Other chronic pain Category: Medical Code(s): M54.50 - Low back pain, unspecified Plan Patient did have a successful first lumbar medial branch block and I did review with her regarding repeat lumbar block. Risk and benefits were discussed with patient and she would like to proceed forward with this plan of care. Patient did have limited range of motion of her lumbar spine during today's visit with a positive Kemps test. Patient was counseled if she does get significant improvement with this second lumbar block we will proceed forward with the lumbar RFA at a later date. Patient acknowledges understanding agrees with plan of care. Patient has continued at home stretching and exercise for longer than 12 weeks with no additional changes. She has had chronic low back pain for longer than 6 months and has continued conservative treatment with no additional improvement. Patient has failed oral medications, heat and ice, topicals. We will schedule her for the second lumbar medial branch block bilaterally L4-L5 and L5-S1 under fluoroscopy. Patient has been instructed to contact the clinic with any concerns before the next appointment. Dr. Wade has reviewed this note and agrees with this plan of care. This note was dictated using voice recognition software and make contain errors or omissions. All injections are used with Lidocaine, Bupivacaine and dexamethasone unless diagnostic in which no steroids are used. Occasionally urine drug screen is needed to verify patient's compliance with our office pain contract. This is ordered based off specific treatments related to chronic pain with the potential to abuse certain medications.
== END 2025-02-14 23:59 | disposition home or self-care (01) ==
LOC: SC.PAIN 14:32
PROVIDERS: PCP Internal Medicine Adolescent Medicine; Visit Provider Nurse Practitioner Family
DX: M47.816 Spondylosis without myelopathy or radiculopathy, lumbar region (principal)
CPT/HCPCS: 99212; G0463

== ENCOUNTER 2025-03-15 13:10 | Day surgery (SDC) | payer MEDICARE, OTHER, SELFPAY ==
--- OUTSIDE RECORDS SUMMARY | 2024-10-23 17:30 | XMS_ITS ---
Author Organization [facility] Address [address] [facility] [address] [place] [address] Care Team Providers Care Corporate Real Estate Manager Name Role Phone Chau Durham Primary Care Provider Migration, Provider Unavailable Unavailable Allergies Allergen (clinical drug ingredient) Drug/Non Drug Allergy documented on EMR Reaction Allergy Type Onset Date Status Penicillin Unknown Drug Allergy Active [facility] Conversion Encounter Medications Medication SIG (Take, [...] Active Encounters Encounter Location Date Provider Diagnosis [facility] [address] [facility] [address] [place] [address] 10/23/2024 Provider Migration Plan Of Treatment Medication [...] Indira PITT RDOB:[birth year] (79 yo F)Acc No.[id number]:10/23/2024 Patient: Indira GUZMAN Provider: Sawyer Negron :1945 A ge:79 Y S ex:Female Date:10/23/2024 Address:[facility] [place] [address], [facility] [id number] Pcp:Chau Durham Subjective: * Chief Complaints: * 1 . [facility] En[facility]. * Medical History: * [...] Electronic signature of Prov ider Migration on 03/15/2025 at 01:20 PM EDT Sign off status: Pending * Provider: Sawyer Negron Date: 0 10/23/2024 Generated for Pipe swain/Faxing/eTransmitting on: 0 03/15/2025 01:20 PM EDT
--- OUTSIDE RECORDS SUMMARY | 2024-11-09 08:30 | XMS_ITS ---
Author Organization [facility] Address [address] [place], [place] [address] Care Team Providers Care Day Worker Name Role Phone Chau Durham Primary Care Provider REASON FOR VISIT 4 week ck Encounters Encounter Location Date Provider Diagnosis [place] [address] [address] 11/09/2024 Chau Durham Plan Of Treatment No Information Progress Notes * Indira PITT RDOB:[birth year] (79 yo F)Acc No.[id number]:11/09/2024 Progress Notes Patient: Indira GUZMAN Provider: Deon Durham MD :1945 A ge:79 Y S ex:Female Date:11/09/2024 Address:[address] [id number] Subjective: * Chief Complaints: * 1 . 4 week ck. * Medical History: Objective: * Vitals: Assessment: Plan: * Treatment: * * Electronic signature of Dilip Durham MD FAAP on 03/15/2025 at 01:20 PM EDT Sign off status: Pending * Provider: Deon Durham MD Date: 11/09/2024 Generated for Printi ng/Fadanteg/eTransmitting on: 03/15/2025 01:20 PM EDT
--- OUTSIDE RECORDS SUMMARY | 2025-03-15 13:20 | XMS_ITS | Clinical Summary ---
Author Organization Healthcare Address [address] [place] [address] Care Team Providers Care Progressive Assembler And Fitter Name Role Phone Chau Durham MD Primary Care Provider [phone] Social History Tobacco Use Types Packs/Day Years [...] r (1 - 1-dose 75+ series) 2022 [id number] Vaccine (1 - 20 24-25 season) 2024 [...] age to complete this topic Care Teams Progressive Assembler And Fitter Relationship Specialty Start Date End Date Chau Durham MD [address] [place] [address] PCP - General 12/01/20
--- OUTSIDE RECORDS SUMMARY | 2025-03-15 13:20 | XMS_ITS | Clinical Summary ---
Author Organization [facility] Address [address] [facility] [address] [place] [phone] Phone Care Team Providers Care Promotor [employer] Name Role Phone Unavailable Primary Care Provider [...]
--- OUTSIDE RECORDS SUMMARY | 2025-03-15 13:21 | XMS_ITS | Patient Health Record ---
Author Organization [facility] Address [address] [place] [address] Care Team Providers Care Clerk Entry Level Name Role Phone Chau Durham Primary Care Provider Migration, Provider Unavailable Unavailable Allergies Allergen (clinical drug ingredient) Drug/Non Drug Allergy documented on EMR Reaction Allergy Type Onset Date Status Penicillin Unknown Drug Allergy Active Results Component Value Reference Range Notes THYROID PANEL WITH TSH (7444 ) Reviewed date:05/31/2024 10:01:03 AM Interpretation: Performing Lab:[facility]ABETH, [employer] [id number] [employer] [employer], EntrenaYaSbznJP[address] Monico Dumont Notes/Report: NON-FASTING; NON-FASTING; NON-FASTING; NON-FASTING; NON-FAST FASTING:NO FASTING: NO T3 UPTAKE 33 22-35 % T4 (THYROXINE), TOTAL 6.6 5.1-11.9 mcg/dL FREE T4 INDEX (T7) 2.2 1.4-3.8 TSH 0.12 0.40-4.50 mIU/L LIPID PANEL, STANDARD (7600) Reviewed date:05/31/2024 10:01:03 AM Interpretation: Performing Lab:[facility]ABETH, [employer] [id number] [employer] [employer] EntrenaYaQnkwKO[address] Monico Dumont Notes/Report: NON-FASTING; NON-FASTING; NON-FASTING; NON-FASTING; NON-FAST FASTING:NO FASTING: NO CHOLESTEROL, TOTAL 166 <200 mg/dL HDL CHOLESTEROL 58 > OR = 50 mg/dL TRIGLYCERIDES 125 <150 mg/dL LDL-CHOLESTEROL 85 Reference range: <100 Desirable range <100 mg/dL for primary prevention; <70 mg/dL for patients with CHD or diabetic patients with > or = 2 CHD risk factors. LDL-C is now calculated using the Anne-Marie calculation, which is a validated novel method providing better accuracy than the Friedewald equation in the estimation of LDL-C. Arnav CALLES et al. KATHI. 2013;310(19): 7294-2967 (http://education.[employer] [place]/faq/UVX481) CHOL/HDLC RATIO 2.9 <5.0 (calc) NON HDL CHOLESTEROL 108 <130 mg/dL (calc) For patients with diabetes plus 1 major ASCVD risk factor, treating to a non-HDL-C goal of <100 mg/dL (LDL-C of <70 mg/dL) is considered a therapeutic option. COMPREHENSIVE METABOLIC PANE Devin (58667) Reviewed date:05/31/2024 10:01:03 AM Interpretation: Performing Lab:[facility]ABETH, [facility] [address], [place] LopezPqguIY[address] Monico Dumont Notes/Report: NON-FASTING; NON-FASTING; NON-FASTING; NON-FASTING; [...] 15 10-35 U/L ALT 8 6-29 U/L CBC (INCLUDES DIFF/PLT) (639 9) Reviewed date:05/31/2024 10:01:04 AM Interpretation: Performing Lab:[facility] [employer] [address] [employer] [facility], [facility] CenterTjmiND[address] Monico Dumont Notes/Report: NON-FASTING; NON-FASTING; NON-FASTING; NON-FASTING; [...] MPV 11.1 7.5-12.5 fL ABSOLUTE NEUTROPHILS 3102 4317-6885 cells/uL ABSOLUTE LYMPHOCYTES 7449 698-8017 cells/uL ABSOLUTE MONOCYTES 362 200-950 cells/uL ABSOLUTE EOSINOPHILS 183 15-500 cells/uL ABSOLUTE BASOPHILS 52 0-200 cells/uL NEUTROPHILS 66 LYMPHOCYTES 21.3 MONOCYTES 7.7 EOSINOPHILS 3.9 BASOPHILS 1.1 HEMOGLOBIN A1c (496) Reviewed date:05/31/2024 10:01:04 AM Interpretation: Performing Lab:[facility] [employer] [id number] [employer] [facility], [facility] CenterBmyfSY[address] Monico Dumont Notes/Report: NON-FASTING; NON-FASTING; NON-FASTING; NON-FASTING; [...] diagnosis of diabetes in children. According to [place] Diabetes Association (ADA) guidelines, hemoglobin A1c <7.0% represents optimal control in non- diabetic patients. Different metrics may apply to specific patient populations. Standards of Medical Care in Diabetes(ADA). VITAMIN B12/FOLATE, SERUM PA LARISSA (7065) Reviewed date:05/31/2024 10:01:04 AM Interpretation: Performing Lab:ELIZABETH, [employer] [id number] [facility] [employer] ResaleAhswCH[address] Monico Dumont Notes/Report: NON-FASTING; NON-FASTING; NON-FASTING; NON-FASTING; NON-FAST FASTING:NO FASTING: NO VITAMIN B12 143 671-1980 pg/mL Please Note: Although the reference range [...] Reviewed date:05/31/2024 10:01:04 AM Interpretation: Performing Lab:ELIZABETH, [employer] Wr[address] [facility], Network Hard[employer] ResaleYkowNU[address] Monico Dumont Notes/Report: NON-FASTING; NON-FASTING; NON-FASTING; NON-FASTING; [...] D, (D2,D3), LC/MS/MS is recommended: order code 64191 (patients >2yrs). See Note 1 Note 1 For additional information, please refer to http://education.Mind[employer].com/faq/KPT756 (This link is being provided for informational/ educational purposes only.) BASIC METABOLIC PANEL (39955 ) Reviewed date:10/14/2024 03:00:05 PM Interpretation: Performing Lab:ELIZABETH, [employer] [address] [employer], [place] [employer] ProfissionalDrilUT[address] Monico Dumont Notes/Report: NON-FASTING; NON-FASTING GLUCOSE 91 [...] ) Reviewed date:10/14/2024 03:00:05 PM Interpretation: Performing Lab:ELIZABETH, [employer] [address] [employer], [employer] Hard[employer] ResaleRnqqTS[address] Monico Dumont Notes/Report: NON-FASTING; NON-FASTING T3 UPTAKE 35 22-35 % T4 (THYROXINE), TOTAL 5.2 5.1-11.9 mcg/dL FREE T4 INDEX (T7) 1.8 1.4-3.8 TSH 4.27 0.40-4.50 mIU/L Medications Medication SIG (Take, Route, Frequency, Duration) [...] Vaccine Route Administration Date Status Comme nts ZZ Unknown 02/09/2007 Administered Tetanus Toxoid Unknown [...] year Unknown 05/22/2010 Administered SHINGRIX IM Intramuscular 05/27/2024 Administered SHINGRIX IM Intramuscular 10/08/2024 Administered Pneumovax 23 IM Intramuscular 06/23/2018 Administered Fluzone High Dose IM Intramuscular 07/03/2018 Administered Fluzone High Dose IM Intramuscular 04/06/2019 Administered Fluzone High Dose IM Intramuscular 08/04/2020 Administered Fluzone High Dose IM Intramuscular 05/09/2021 Administered Fluzone High Dose IM Intramuscular 04/20/2024 Administered Boostrix IM Intramuscular 10/12/2024 Administered Arexvy IM Intramuscular 09/16/2023 Administered Problems Problem Type SNOMED Code ICD Code Onset Dates Problem Status W/U Status Risk Notes Problem Type 2 diabetes mellitus with other specified complication (E11.69) Active confirmed Problem Intestinal malabsorption (068992068) Intestinal malabsorption, 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) Active confirmed Problem Vitamin B12 deficiency (981525086) Vitamin B12 deficiency (E53.8) Active confirmed Problem Mixed anxiety and depressive disorder (767012653) Depression with anxiety (F41.8) Active confirmed Problem Hypothyroidism (30856818) Hypothyroidism (E03.9) Active confirmed Problem Hypertension (22520963) Hypertension (I10) Active confirmed Problem Exacerbation of asthma (649181188) Asthma exacerbation (J45.901) Active confirmed Problem Seasonal allergy (144203434) Seasonal allergies (J30.2) Active confirmed Problem Hyperlipidemia (42677827) Hyperlipidemia, unspecified (E78.5) Active confirmed Problem Type 2 diabetes mellitus well controlled (045787482) Controlled diabetes mellitus type II without complication (E11.9) Active confirmed Problem Thyroid nodule (322668521) Thyroid nodule (E04.1) Active confirmed Problem Constipation (93954642) Constipation, unspecified constipation type (K59.00) Active confirmed Problem Inflammation of joint of shoulder region (377764541) Arthritis of shoulder region, 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) Active confirmed Problem Pulmonary nodule (550186592) Pulmonary nodule (R91.1) Active confirmed Problem Acute severe exacerbation of mild persistent asthma (disorder) (631052943) Mild persistent asthma with acute exacerbation (J45.31) Active confirmed Problem Vitamin B12 deficiency (509637587) History of non anemic vitamin B12 deficiency (Z86.39) Active confirmed Problem Depressed (33269447) Depressed (F32.9) Active confirmed Problem Osteopenia (disorder) (493533522) Osteopenia determined by x-ray (M85.80) Active confirmed Problem Raynaud's disease (115598200) Raynaud's disease without gangrene (I73.00) Active confirmed Problem Essential hypertension (20146018) Accelerated hypertension (I10) Active confirmed Problem Arthritis of right knee (7487988682877045) Arthritis of right knee (M17.11) Active confirmed Problem Mitral and aortic regurgitation (149104837) Mitral and aortic regurgitation (I08.0) Active confirmed Problem Asthma without status asthmaticus (23344971) Asthma, unspecified asthma severity, unspecified whether complicated, unspecified whether persistent (J45.909) Active confirmed Problem Raynaud's disease (270592500) Raynaud's phenomenon without gangrene (I73.00) Active confirmed Problem Atherosclerotic heart disease of [place] coronary artery without angina pectoris (856107405912131) Arteriosclerosis of coronary artery (I25.10) Active confirmed Vital Signs Heart Rate 80 /min 10/12/2024 Temperature 97.9 degrees Fahrenheit 10/12/2024 Blood pressure diastolic 80 mm Hg 10/12/2024 Height 5 ft 3 in in 10/12/2024 Blood pressure systolic 118 mm Hg 10/12/2024 Weight 122 lbs 10/12/2024 BMI 21.61 kg/m2 10/12/2024 Encounters Encounter Location Date Provider Diagnosis [facility] [address] [place], [place] [address] 10/23/2024 Provider Migration [facility] [address] [address] 04/20/2024 Chau Durham Immunization(s) administered Z23 [facility] [address] [address] 05/27/2024 Chau Durham Vitamin B12 deficien cy E53.8 ; Hypertension I10 ; Osteopenia determined by x-ray M85.80 ; Thyroid nodule E04.1 ; Hyperlipemia, idiopathic familial E78.5 ; Type 2 diabetes mellitus with other specified complication E11.69 ; Hyperlipidemia, unspecified E78.5 ; Arthritis of right knee M17.11 ; Routine medical exam Z00.00 and Encounter for immunization Z23 [facility] [place] [address] [address] 10/08/2024 Chau Besson Encounter for immunization Z23 [facility] [place] [facility] [address] [address] 10/12/2024 Chau Besson Hypertension I10 ; Hypothyroidism E03.9 ; Pre-syncope R55 ; Asthma, unspecified asthma severity, unspecified whether complicated, unspecified whether persistent J45.909 ; Seasonal allergies J30.2 ; Encounter for immunization Z23 and Healthcare maintenance Z00.00 [facility] [place] [address] [address] 05/17/2024 Chau Besson [facility] [place] [address] [address] 05/20/2024 Chau Besson [facility] [address] [address] 10/13/2024 Chau Besson [facility] [address] [address] 10/22/2024 Chau Besson [facility] [place] [address] [address] 02/09/2025 Chau Besson [facility] [address] [address] 02/28/2025 Chau Besson Depression with anxiety F41.8 Assessments Encounter Date Diagnosis (ICD Code) Assessment Notes Treatment Notes Treatment Clinical Notes Section Notes 04/20/2024 Immunization(s) administered (ICD-10 - Z23) 05/27/2024 Vitamin B12 deficiency (ICD-10 - E53.8) Check vitamin B12 levels given history of deficiency. Please note I will review all labs personally 05/27/2024 Hypertension (ICD-10 - I10) Blood pressure under good control 10/08/2024 Encounter for immunization (ICD-10 - Z23) 10/12/2024 Hypothyroidism (ICD-10 - E03.9) TSH low on labs in May, will recheck today and adjust levothyroxine accordingly. 10/12/2024 Hypertension (ICD-10 - I10) Will stop losartan-hctz and start amlodipine due to syncopal episode and concern for orthostatic component. Excellent BP control in office today. 02/28/2025 Depression with anxiety (ICD-10 - F41.8) 10/12/2024 Pre-syncope (ICD-10 - R55) Likely orthostatic [...] N-sputum culture and sensitivity 014 Physical Therapy 07/17/2011 Physical Therapy 11/18/2014 Physical Therapy 11/23/2014 CT Scan : CT Guided Biopsy 01/14/2014 Mammogram : Bilateral 03/04/2022 N-1,25-Dihydroxyvitamin D 01/27/2009 N-CBC with diff 04/29/2013 C-CBC 12/28/2013 C-CBC 01/08/2013 C-CBC 07/05/2011 C-CMP 07/05/2011 C-CMP 12/28/2013 C-CMP 01/08/2013 C-LIPID PANEL 01/08/2013 C-LIPID PANEL 07/05/2011 C-TSH 07/05/2011 C-TSH 01/08/2013 C-FOLATE 12/30/2013 C-VITAMIN B12 01/08/2013 C-VITAMIN B12 07/05/2011 Urine Culture, Routine 05/15/2017 VENIPUNCT, ROUTINE* 12/29/2015 VENIPUNCT, ROUTINE* 03/29/2016 M-Complete Blood Count Auto Diff 020 M-Comprehensive Metabolic Panel 05/17/20 20 M-Lipid Panel 05/17/2020 M-Thyroid Stimulating Hormone 05/17/2020 M-Vitamin B12 05/17/2020 M-Vitamin B12 02/27/2021 M-Vitamin D 25 Hydroxy 05/17/2020 Insurance Providers Payer Name Payer Address Payer Phone Subscriber Number Group Number Insured Name Patient Relationship to Insured Coverage Start Date Coverage End Date [place] [address] [place] [address] [phone] [id number] Indira Pitt Self - patient is the insured [employer] [address] [place] [address] [id number] Indira Pitt Self - patient is the insured [employer] [address] [place] [address] ACL Indira Pitt Self - patient is the insured Medications Administered Medication Instructions Date of Administration Dosage Notes Allergy Injection 11/09/2018 Ceftriaxone 500 09/21/2013 500 mg Ceftriaxone 500 11/11/2013 500 mg Cyanocobalamin/B-12 Pt's Own Medication 02/04/2013 Cyanocobalamin/B-12 Pt's Own Medication 03/02/2013 Cyanocobalamin/B-12 Pt's Own Medication 04/29/2013 Cyanocobalamin/B-12 Pt's Own Medication 08/17/2013 Cyanocobalamin/B-12 Pt's Own Medication 01/04/2014 Cyanocobalamin/B-12 Pt's Own Medication 01/18/2014 Cyanocobalamin/B-12 Pt's Own Medication 01/25/2014 Cyanocobalamin/B-12 Pt's Own Medication 02/03/2014 Cyanocobalamin/B-12 Pt's Own Medication 02/11/2014 Cyanocobalamin/B-12 Pt's Own Medication 02/15/2014 Cyanocobalamin/B-12 Pt's Own Medication 03/01/2014 Cyanocobalamin/B-12 Pt's Own Medication 03/25/2014 Cyanocobalamin/B-12 Pt's Own Medication 04/26/2014 Cyanocobalamin/B-12 Pt's Own Medication 06/30/2014 Cyanocobalamin/B-12 Pt's Own Medication 01/04/2016 1 mL Cyanocobalamin/B-12 Pt's Own Medication 01/11/2016 1 mL Cyanocobalamin/B-12 Pt's Own Medication 02/16/2016 1 mL Cyanocobalamin/B-12 Pt's Own Medication 03/04/2016 1 mL Cyanocobalamin/B-12 Pt's Own Medication 03/15/2016 Cyanocobalamin/B-12 Pt's Own Medication 04/04/2016 1 mL Cyanocobalamin/B-12 Pt's Own Medication 04/12/2016 1 mL Cyanocobalamin/B-12 Pt's Own Medication 04/19/2016 1 mL Cyanocobalamin/B-12 Pt's Own Medication 05/03/2016 1 mL Cyanocobalamin/B-12 Pt's Own Medication 05/17/2016 1 mL Cyanocobalamin/B-12 Pt's Own Medication 05/15/2017 [...] 08/15/2021 1 mL Cyanocobalamin/B-12 Pt's Own Medication 10/08/2021 1 mL Kenalog 40mg 11/21/2016 40 mg Kenalog 40mg 02/11/2017 40 mg Kenalog 09/21/2013 1 Kenalog 11/11/2013 1 mL Kenalog 06/08/2015 1 mL Medical (General) History Medical History History ICD Code asthma hypertension GERD Hypothyroidism colitis tubular adenoma 02/2017 normal mammogram July 2018 - and agai n August 2020 and normal 02/2022 significant osteopenia on DEXA scan 2018 carotid Doppler April 09 with less [...]
[2025-03-15 13:34] VITALS: BP 147/86; PULSE 79; RESP 18; O2SAT 95; BMI 22.1
[2025-03-15] MEDS: LIDOCAINE 1% 5ML PF VIAL 5 ML (13:46)
[2025-03-15] MEDS: DEXAMETHASONE 10MG/ML 1ML VIAL 10 MG (13:46)
[2025-03-15] MEDS: BUPIVACAINE 0.25% 10ML INJ 25 MG IJ (13:46)
[2025-03-15 13:49] VITALS: BP 155/71; PULSE 95; RESP 18; O2SAT 99
[2025-03-15 13:54] VITALS: BP 142/86; PULSE 92; RESP 18; O2SAT 100
[2025-03-15 13:59] VITALS: BP 155/71; PULSE 95; RESP 18; O2SAT 99
--- NOTE | 2025-03-15 14:09 | EXP.PAIN.PRO ---
Procedure Date: 03/15/25 Time: 14:00 Anesthesiologist:: Kit Richardson CRNA Complications:: None Pre-procedure Diagnosis:: Degenerative disc lumbar spine multilevels. Lumbar radiculopathy. Lumbar spondylosis. Multilevel lumbar facet arthropathy. Lumbar postlaminectomy syndrome. Post-procedure Diagnosis:: Same. Indications for Procedure:: Patient is a very pleasant 79-year-old female who comes our clinic today for round 2 lumbar medial branch blocks/facet injections at the L4-5, L5-S1 level. Patient describes low lumbar back pain as constant, dull, aching. She reports difficulty with lumbar flexion, extension, left and right rotation. She rates her pain 7/10. Procedure Details:: Informed consent was obtained and the risk and benefits of the procedure was explained to the patient. Patient was taken to the procedure room where noninvasive monitors were placed, including noninvasive blood pressure cuff as well as pulse oximeter. The area over the lumbar spine was cleansed using chlorhexidine as a cleansing solution. I anesthetized the skin and subcutaneous tissues with 1% Lidocaine. I placed 22-gauge spinal needles into the facet joint/ medial branches of L4-L5, and L5-S1 bilaterally. Needle placement was confirmed with fluoroscopy. After confirmation of needle placement, each site was injected with 1 mL of 1% lidocaine and 0.25 % Marcaine 1 mL. Patient tolerated the procedure without difficulty. There were no complications. Plan and Disposition:: Patient was discharged without incident.
== END 2025-03-15 13:54 | disposition home or self-care (01) ==
LOC: SC.PAINP 03-16 07:24
PROVIDERS: PCP Internal Medicine Adolescent Medicine; Visit Provider Nurse Anesthetist, Certified Registered
DX: M51.16 Intervertebral disc disorders with radiculopathy, lumbar region (principal); M47.26 Other spondylosis with radiculopathy, lumbar region; M96.1 Postlaminectomy syndrome, not elsewhere classified; I25.119 Atherosclerotic heart disease of native coronary artery with unspecified angina pectoris; J44.89 Other specified chronic obstructive pulmonary disease; K21.9 Gastro-esophageal reflux disease without esophagitis; E78.5 Hyperlipidemia, unspecified; I10 Essential (primary) hypertension; Z88.0 Allergy status to penicillin; Z79.82 Long term (current) use of aspirin; Z79.890 Hormone replacement therapy; Z79.899 Other long term (current) drug therapy
CPT/HCPCS: 64493; 64494; J0665; J1100; J2003

== ENCOUNTER 2025-03-17 09:51 | Outpatient (CLI) | payer MEDICARE, OTHER, SELFPAY ==
--- OUTSIDE RECORDS SUMMARY | 2025-03-17 09:57 | XMS_ITS | Clinical Summary ---
Author Organization Healthcare Address [address] [place] [address] Care Team Providers Care Bottom Saw Operator Name Role Phone Chau Durham MD Primary Care Provider [phone] Social History Tobacco Use Types Packs/Day Years [...] r (1 - 1-dose 75+ series) 2022 [id number] Vaccine (1 - 20 24-25 season) 2024 [...] age to complete this topic Care Teams Bottom Saw Operator Relationship Specialty Start Date End Date Chau Durham MD [address] [place] [address] [place] [address] PCP - General 12/01/20
--- OUTSIDE RECORDS SUMMARY | 2025-03-17 09:57 | XMS_ITS | Clinical Summary ---
Author Organization [facility] Address [address] [facility] [address] [place] [phone] Phone Care Team Providers Care Mobile Equipment Servicer Name Role Phone Unavailable Primary Care Provider [...]
[2025-03-17 11:25] LABS: Free T4 (Free Thyroxine) 0.80 ng/dl (0.78-2.19)
[2025-03-17 11:46] LABS: Hematocrit 35.3 % (37.0-47.0); Hemoglobin 11.8 g/dL (12.2-16.2); Mean Corpuscular Volume 100.9 fl (81-99); Red Blood Count 3.50 M/mm3 (4.20-5.40); White Blood Count 4.9 K/mm3 (4.8-10.8)
[2025-03-17 11:47] LABS: Immature Granulocytes % 0.4 %; Mean Corpuscular HGB Conc 33.4 g/dL (31.8-35.4); Mean Corpuscular Hemoglobin 33.7 pg (27.0-31.2); Nucleated Red Blood Cells % 0 %; Red Cell Distribution Width-SD 47.0 fL
[2025-03-17 12:03] LABS: Platelet Count 52 K/mm3 (142-424)
[2025-03-17 13:16] LABS: Albumin Level 4.6 g/dl (3.5-5.0); Chloride 104 mmol/L (98-107); Potassium 3.7 mmoL/L (3.5-5.1); Sodium 135 mmol/L (136-145)
[2025-03-17 13:19] LABS: Alanine Aminotransferase 15 U/L (12-78); Alkaline Phosphatase 63 U/L (38-126); Anion Gap 18.7 mEq/L (5-15); Aspartate Amino Transferase 40 U/L (14-36); Bilirubin,Direct 0.5 mg/dl (0.0-0.4); Bilirubin,Indirect 0.5 mg/dL (0.0-0.9); Bilirubin,Total 1.0 mg/dl (0.2-1.3); Bilirubin,Unconjugated 0.5 mg/dL (0.0-1.1); Blood Urea Nitrogen 13 mg/dl (7-17); Calcium 9.4 mg/dl (8.4-10.2); Carbon Dioxide 16 mmol/L (22.0-30.0); Cholesterol 159 mg/dl (140-200); Creatinine,Serum 0.70 mg/dl (0.52-1.04); Estimated Glomerular Filt Rate 81 ml/min (>60); GFR (African American) 98 ML/MIN (>60); Glucose 56 mg/dl (74-100); Magnesium 1.6 mg/dl (1.6-2.3); Total Protein,Serum 7.3 g/dl (6.3-8.2); Triglycerides 87 mg/dl (30-150)
[2025-03-17 13:20] LABS: HDL Cholesterol 78 mg/dl (40-60)
[2025-03-17 14:15] LABS: Thyroid Stimulating Hormone 4.36 uIU/mL (0.465-4.68)
== END 2025-03-17 23:59 | disposition home or self-care (01) ==
LOC: LAB 09:53
PROVIDERS: PCP Internal Medicine Adolescent Medicine; Visit Provider Physician Assistant
DX: I25.10 Atherosclerotic heart disease of native coronary artery without angina pectoris (principal); I10 Essential (primary) hypertension
CPT/HCPCS: 36415; 80048; 80061; 80076; 83735; 84439; 84443; 85025

== ENCOUNTER 2025-03-18 10:35 | Outpatient (CLI) | payer MEDICARE, OTHER, SELFPAY ==
--- OUTSIDE RECORDS SUMMARY | 2024-09-02 07:00 | XMS_ITS ---
Author Organization [facility] Address [address] [place] [address] Care Team Providers Care Human Performance Consultant Name Role Phone Chau Durham Primary Care Provider [phone] REASON FOR VISIT wellness Encounters Encounter Location Date Provider Diagnosis [place] [facility] [address] [address] 09/02/2024 Chau Durham Plan Of Treatment No Information Progress Notes * Indira PITT RDOB:[birth year] (79 yo F)Acc No.[id number]:09/02/2024 Progress Notes Patient: Indira GUZMAN Provider: Deon Durham MD :1945 A ge:79 Y S ex:Female Date:09/02/2024 Address:[address] [id number] Subjective: * Chief Complaints: * 1 . Wellness. * Medical History: Objective: * Vitals: Assessment: Plan: * Treatment: * * Electronic signature of Dilip Durham MD FAAP on 03/18/2025 at 10:40 AM EDT Sign off status: Pending * Provider: Deon Durham MD Date: 09/02/2024 Generated for Opali ng/Fadanteg/eTransmitting on: 0 03/18/2025 10:40 AM EDT
--- OUTSIDE RECORDS SUMMARY | 2024-10-23 17:30 | XMS_ITS ---
Author Organization [facility] Address [address] [facility] [address] [place] [address] Care Team Providers Care Trauma Coordinator Name Role Phone Chau Durham Primary Care Provider Migration, Provider Unavailable Unavailable Allergies Allergen (clinical drug ingredient) Drug/Non Drug Allergy documented on EMR Reaction Allergy Type Onset Date Status Penicillin Unknown Drug Allergy Active REAS[facility] FOR VISIT [facility] To [facility] Conversion Encounter Medications Medication SIG (Take, Route, Frequency, Duration) Notes Start Date End Date Status Isosorbide Mononitrate ER 60 MG 1.5 tab(s) orally once a day (in the morning) Active Triamcinolone Acetonide 0.5 % 1 obie applied topically 2 times a day; Duration: 7 day(s) 02/11/2017 Active Levothyroxine Sodium 125 MCG 1 tab(s) orally once a day; Duration: 90 days Active Promethazine-DM 6.25-15 MG/5ML 5 mL orally every 6 hours; Duration: 10 days 10/22/2024 Active Lisinopril 10 MG 1 tab(s) orally once a day; Duration: 30 day(s) 05/28/2019 Active Zithromax Z-Godwin 250 MG 2 tablets on the first day, then 1 tablet daily for 4 days orally once a day; Duration: 5 days 10/22/2024 Active Promethazine-DM 6.25-15 MG/5ML 5 mL orally every 6 hours; Duration: 10 days 10/13/2024 Active Symbicort 80-4.5 MCG/ACT 2 puff(s) inhaled 2 times a day; Duration: 90 days Active Escitalopram Oxalate 10 MG 1 tab(s) orally once a day; Duration: 90 days Active DULoxetine HCl 30 MG 1 cap(s) orally once a day; Duration: 90 days Active ALBUTEROL (EQV-PROVENTIL HFA) 90 MCG/INH 2 INH INHALED EVERY 6 HOURS; Duration: 30 DAYS *Please review for potential replacement for e-prescription and drug interaction check* 10/13/2024 Active amLODIPine Besylate 5 MG 1 tab(s) orally once a day; Duration: 30 days 10/13/2024 Active busPIRone HCl 10 MG 1 tab(s) orally three times a day; Duration: 90 days Active Linzess 290 MCG 1 cap(s) orally once a day; Duration: 30 day(s) 09/03/2022 Active Metoprolol Tartrate 25 MG 1 tab(s) orally 2 times a day; Duration: 90 days Active ADULT ASPIRIN REGIMEN 81 MG 1 TAB(S) ORALLY ONCE A DAY; Duration: 30 DAY(S) *Please review for potential replacement for e-prescription and drug interaction check* 06/06/2022 Active MOBIC 15 MG 1 TAB(S) ORALLY ONCE A DAY; Duration: 90 DAYS prn *Please review for potential replacement for e-prescription and drug interaction check* Active Encounters Encounter Location Date Provider Diagnosis [facility] [address] [facility] [address] [place] [address] 10/23/2024 Provider Migration Plan Of Treatment Medication Medication Name Sig Start Date Stop Date Notes Levothyroxine Sodium 125 MCG 1 tab(s) orally once a day; Duration: 90 days Promethazine-DM 6.25-15 MG/5ML 5 mL orally every 6 hours; Duration: 10 days 10/22/2024 Zithromax Z-Godwin 250 MG 2 tablets on the first day, then 1 tablet daily for 4 days orally once a day; Duration: 5 days 10/22/2024 Promethazine-DM 6.25-15 MG/5ML 5 mL orally every 6 hours; Duration: 10 days 10/13/2024 ALBUTEROL (EQV-PROVENTIL HFA) 90 MCG/INH 2 INH INHALED EVERY 6 HOURS; Duration: 30 DAYS 10/13/2024 *Please review for potential replacement for e-prescription and drug interaction check* amLODIPine Besylate 5 MG 1 tab(s) orally once a day; Duration: 30 days 10/13/2024 Progress Notes * Indira PITT RDOB:[birth year] (79 yo F)Acc No.[id number]:10/23/2024 Patient: Indira GUZMAN Provider: Sawyer Negron :1945 A ge:79 Y S ex:Female Date:10/23/2024 Address:[facility] [address] [id number] Pcp:Chau Durham Subjective: * Chief Complaints: * 1 . [facility] Conversion Encounter. * Medical History: * Medications: T aking Triamcinolone Acetonide 0.5 % Ointment 1 obie applied topically 2 times a day , Taking Isosorbide Mononitrate ER 60 MG Tablet Extended Release 24 Hour 1.5 tab(s) orally once a day (in the morning) , Taking Lisinopril 10 MG Tablet 1 tab(s) orally once a day , Taking MOBIC 15 MG TABLET 1 TAB(S) ORALLY ONCE A DAY , Notes to Pharmacist: prn *Please review for potential replacement for e-prescription and drug interaction check*, Taking ADULT ASPIRIN REGIMEN 81 MG DELAYED RELEASE TABLET 1 TAB(S) ORALLY ONCE A DAY , Notes to Pharmacist: *Please review for potential replacement for e-prescription and drug interaction check*, Taking Linzess 290 MCG Capsule 1 cap(s) orally once a day , Taking busPIRone HCl 10 MG Tablet 1 tab(s) orally three times a day , Taking Metoprolol Tartrate 25 MG Tablet 1 tab(s) orally 2 times a day , Taking Symbicort 80-4.5 MCG/ACT Aerosol 2 puff(s) inhaled 2 times a day , Taking DULoxetine HCl 30 MG Capsule Delayed Release Particles 1 cap(s) orally once a day , Taking Escitalopram Oxalate 10 MG Tablet 1 tab(s) orally once a day * Allergies: P enicillin. Objective: * Vitals: Assessment: Plan: * Treatment: * * Electronic signature of Prov ider Migration on 03/18/2025 at 10:39 AM EDT Sign off status: Pending * Provider: Sawyer Negron Date: 0 10/23/2024 Generated for Pipe swain/Faxing/eTransmitting on: 0 03/18/2025 10:39 AM EDT
--- OUTSIDE RECORDS SUMMARY | 2024-11-09 08:30 | XMS_ITS ---
Author Organization [facility] Address [address] [place], [place] [address] Care Team Providers Care Freelance Graphic Designer Name Role Phone Chau Durham Primary Care Provider REASON FOR VISIT 4 week ck Encounters Encounter Location Date Provider Diagnosis [place] [address] [address] 11/09/2024 Chau Durham Plan Of Treatment No Information Progress Notes * Indira PITT RDOB:[birth year] (79 yo F)Acc No.[id number]:11/09/2024 Progress Notes Patient: Indira GUZMAN Provider: Deon Durham MD :1945 A ge:79 Y S ex:Female Date:11/09/2024 Address:[address] [place] Subjective: * Chief Complaints: * 1 . 4 week ck. * Medical History: Objective: * Vitals: Assessment: Plan: * Treatment: * * Electronic signature of Dilip Durham MD FAAP on 03/18/2025 at 10:40 AM EDT Sign off status: Pending * Provider: Deon Durham MD Date: 11/09/2024 Generated for Printi ng/Fadanteg/eTransmitting on: 03/18/2025 10:40 AM EDT
--- OUTSIDE RECORDS SUMMARY | 2025-03-18 10:40 | XMS_ITS | Clinical Summary ---
Author Organization Healthcare Address [address] [place] [address] Care Team Providers Care Anesthesiologist And Critical Care Name Role Phone Chau Durham MD Primary Care Provider [phone] Social History Tobacco Use Types Packs/Day Years [...] r (1 - 1-dose 75+ series) 2022 [id number] Vaccine (1 - 20 24-25 season) 2024 [...] age to complete this topic Care Teams Anesthesiologist And Critical Care Relationship Specialty Start Date End Date Chau Durham MD [address] [place] [address] [place] [address] PCP - General 12/01/20
--- OUTSIDE RECORDS SUMMARY | 2025-03-18 10:41 | XMS_ITS | Patient Health Record ---
Author Organization [facility] Address [address] [place] [address] Care Team Providers Care Hospital Staff Pharmacist Name Role Phone Chau Durham Primary Care Provider [phone] Migration, Provider Unavailable Unavailable Allergies Allergen (clinical drug ingredient) Drug/Non Drug Allergy documented on EMR Reaction Allergy Type Onset Date Status Penicillin Unknown Drug Allergy Active Results Component Value Reference Range Notes VITAMIN D,25-OH,TOTAL,IA (17 306) Reviewed date:05/31/2024 10:01:04 AM Interpretation: Performing Lab:ELIZABETH, [facility] [id number] [facility], [facility] HospitalGeurBU[address] Monico Dumont Notes/Report: FASTING: NO FASTING:NO NON-FASTING; NON-FASTING; NON-FASTING; NON-FASTING; NON-FAST VITAMIN D,25-OH,TOTAL,IA 73 30-100 ng/mL Vitamin D Status 25-OH Vitamin D: Deficiency: <20 ng/mL Insufficiency: 20 - 29 ng/mL Optimal: > or = 30 ng/mL For 25-OH Vitamin D testing on patients on D2-supplementation and patients for whom quantitation of D2 and D3 fractions is required, the QuestAssureD(TM) 25-OH VIT D, (D2,D3), LC/MS/MS is recommended: order code 43262 (patients >2yrs). See Note 1 Note 1 For additional information, please refer to http://education.Travel Likes.net.com/faq/PVQ623 (This link is being provided for informational/ educational purposes only.) VITAMIN B12/FOLATE, SERUM PA LARISSA (6508) Reviewed date:05/31/2024 10:01:04 AM Interpretation: Performing Lab:CB, [facility] [id number], [place] BaggPD[address] Monico Dumont Notes/Report: NON-FASTING; NON-FASTING; NON-FASTING; NON-FASTING; NON-FAST FASTING:NO FASTING: NO VITAMIN B12 807 972-2221 pg/mL Please Note: Although the reference range [...] Reviewed date:05/31/2024 10:01:04 AM Interpretation: Performing Lab:ELIZABETH [facility] [facility], [facility] HospitalEvdxFO[address] Monico Dumont Notes/Report: NON-FASTING; NON-FASTING; NON-FASTING; NON-FASTING; [...] diagnosis of diabetes in children. According to [place] Diabetes Association (ADA) guidelines, hemoglobin A1c <7.0% represents optimal control in non- diabetic patients. Different metrics may apply to specific patient populations. Standards of Medical Care in Diabetes(ADA). CBC (INCLUDES DIFF/PLT) (639 9) Reviewed date:05/31/2024 10:01:04 AM Interpretation: Performing Lab:ELIZABETH [facility], [place] TmzyPI[address] Monico Dumont Notes/Report: NON-FASTING; NON-FASTING; NON-FASTING; NON-FASTING; [...] MPV 11.1 7.5-12.5 fL ABSOLUTE NEUTROPHILS 3102 6555-3022 cells/uL ABSOLUTE LYMPHOCYTES 9761 258-8174 cells/uL ABSOLUTE MONOCYTES 362 200-950 cells/uL ABSOLUTE EOSINOPHILS 183 15-500 cells/uL ABSOLUTE BASOPHILS 52 0-200 cells/uL NEUTROPHILS 66 LYMPHOCYTES 21.3 MONOCYTES 7.7 EOSINOPHILS 3.9 BASOPHILS 1.1 COMPREHENSIVE METABOLIC PANE L (26659) Reviewed date:05/31/2024 10:01:03 AM Interpretation: Performing Lab:CB, [facility] [id number] [facility] [address], [facility] HospitalLnxgQN[address] Monico Dumont Notes/Report: NON-FASTING; NON-FASTING; NON-FASTING; NON-FASTING; [...] Reviewed date:05/31/2024 10:01:03 AM Interpretation: Performing Lab:ELIZABETH [id number] [facility]teA[facility], [facility] HospitalMudkVJ[address] Monico Dumont Notes/Report: NON-FASTING; NON-FASTING; NON-FASTING; NON-FASTING; [...] LDL-C. Arnav CALLES et al. KATHI. 2013;310(19): 1123-2703 (http://education.Easy Square Feet.InGaugeIt/faq/TBI547) CHOL/HDLC RATIO 2.9 <5.0 (calc) NON HDL CHOLESTEROL 108 <130 mg/dL (calc) For patients with diabetes plus 1 major ASCVD risk factor, treating to a non-HDL-C goal of <100 mg/dL (LDL-C of <70 mg/dL) is considered a therapeutic option. THYROID PANEL WITH TSH (7444 ) Reviewed date:05/31/2024 10:01:03 AM Interpretation: Performing Lab:ELIZABETH [facility] [id number] [facility], [place]goraYheeGO[address] Monico Dumont Notes/Report: NON-FASTING; NON-FASTING; NON-FASTING; NON-FASTING; NON-FAST FASTING:NO FASTING: NO T3 UPTAKE 33 22-35 % T4 (THYROXINE), TOTAL 6.6 5.1-11.9 mcg/dL FREE T4 INDEX (T7) 2.2 1.4-3.8 TSH 0.12 0.40-4.50 mIU/L THYROID PANEL WITH TSH (7444 ) Reviewed date:10/14/2024 03:00:05 PM Interpretation: Performing Lab:ELIZABETH [facility] [id number] [facility] [facility] Monico Dumont Notes/Report: NON-FASTING; NON-FASTING T3 UPTAKE 35 22-35 % T4 (THYROXINE), TOTAL 5.2 5.1-11.9 mcg/dL FREE T4 INDEX (T7) 1.8 1.4-3.8 TSH 4.27 0.40-4.50 mIU/L BASIC METABOLIC PANEL (56768 ) Reviewed date:10/14/2024 03:00:05 PM Interpretation: Performing Lab:ELIZABETH [facility] [id number] [facility] [facility] Monico Dumont Notes/Report: NON-FASTING; NON-FASTING GLUCOSE 91 [...] 27 20-32 mmol/L CALCIUM 9.2 8.6-10.4 mg/dL Medications Medication SIG (Take, Route, Frequency, Duration) [...] 6 hours; Duration: 10 days 10/22/2024 Active Symbicort 80-4.5 MCG/ACT 2 puff(s) inhaled 2 times a day; Duration: 90 days Active ALBUTEROL [...] a day; Duration: 30 day(s) 09/03/2022 Active Escitalopram Oxalate 10 MG 1 tab(s) orally once a day; Duration: 90 days Active Immunizations Vaccine Route Administration Date Status Comme nts ZZ Unknown 02/09/2007 Administered Tetanus Toxoid Unknown 01/12/2007 Administered SHINGRIX IM Intramuscular 05/27/2024 Administered Fluzone High Dose IM Intramuscular 04/06/2019 Administered Fluzone High Dose IM Intramuscular 07/03/2018 Administered Influenza (Fluzone)--Medicare only IM Intramuscular 2017 Administered Influenza (Fluzone)--Medicare only IM Intramuscular 04/19/2016 Administered Influenza (Fluzone)--Medicare only IM Intramuscular 04/26/2014 Administered Influenza (Fluzone)--Medicare only Unknown 04/21/2012 Administered Pneumococcal Vaccine Unknown 05/30/2011 Administered Pneumovax 23 IM Intramuscular 06/23/2018 Administered Prevnar PCV-13 (Pneumococcal conjugate 13) IM Intramuscular 01/23/2017 Administered SHINGRIX IM Intramuscular 10/08/2024 Administered Tenivac (Td) 7 + yrs IM Intramuscular 03/25/2014 Administe red Arexvy IM Intramuscular 09/16/2023 Administered Boostrix IM Intramuscular 10/12/2024 Administered Fluvirin--Influenza vaccine 3+ year Unknown 05/22/2010 Administered Fluzone High Dose IM Intramuscular 04/20/2024 Administered Fluzone High Dose IM Intramuscular 05/09/2021 Administered Fluzone High Dose IM Intramuscular 08/04/2020 Administered Problems Problem Type SNOMED Code ICD Code Onset Dates Problem Status W/U Status Risk Notes Problem Type 2 diabetes mellitus with other specified complication (E11.69) Active confirmed Problem Intestinal malabsorption (511267336) Intestinal malabsorption, 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) Active confirmed Problem Vitamin B12 deficiency (340819003) Vitamin B12 deficiency (E53.8) Active confirmed Problem Mixed anxiety and depressive disorder (779864028) Depression with anxiety (F41.8) Active confirmed Problem Hypothyroidism (36285413) Hypothyroidism (E03.9) Active confirmed Problem Hypertension (98735130) Hypertension (I10) Active confirmed Problem Exacerbation of asthma (359571324) Asthma exacerbation (J45.901) Active confirmed Problem Seasonal allergy (537327957) Seasonal allergies (J30.2) Active confirmed Problem Hyperlipidemia (40737898) Hyperlipidemia, unspecified (E78.5) Active confirmed Problem Type 2 diabetes mellitus well controlled (333667370) Controlled diabetes mellitus type II without complication (E11.9) Active confirmed Problem Thyroid nodule (987739283) Thyroid nodule (E04.1) Active confirmed Problem Constipation (15775710) Constipation, unspecified constipation type (K59.00) Active confirmed Problem Inflammation of joint of shoulder region (635890623) Arthritis of shoulder region, 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) Active confirmed Problem Pulmonary nodule (791102165) Pulmonary nodule (R91.1) Active confirmed Problem Acute severe exacerbation of mild persistent asthma (disorder) (420169990) Mild persistent asthma with acute exacerbation (J45.31) Active confirmed Problem Vitamin B12 deficiency (057337284) History of non anemic vitamin B12 deficiency (Z86.39) Active confirmed Problem Depressed (08328741) Depressed (F32.9) Active confirmed Problem Osteopenia (disorder) (225154863) Osteopenia determined by x-ray (M85.80) Active confirmed Problem Raynaud's disease (407389171) Raynaud's disease without gangrene (I73.00) Active confirmed Problem Essential hypertension (66036758) Accelerated hypertension (I10) Active confirmed Problem Arthritis of right knee (5130982824643273) Arthritis of right knee (M17.11) Active confirmed Problem Mitral and aortic regurgitation (204499423) Mitral and aortic regurgitation (I08.0) Active confirmed Problem Asthma without status asthmaticus (46196430) Asthma, unspecified asthma severity, unspecified whether complicated, unspecified whether persistent (J45.909) Active confirmed Problem Raynaud's disease (497162881) Raynaud's phenomenon without gangrene (I73.00) Active confirmed Problem Atherosclerotic heart disease of [place] coronary artery without angina pectoris (936869612009250) Arteriosclerosis of coronary artery (I25.10) Active confirmed Vital Signs Heart Rate 80 /min 10/12/2024 Temperature 97.9 degrees Fahrenheit 10/12/2024 Blood pressure diastolic 80 mm Hg 10/12/2024 Height 5 ft 3 in in 10/12/2024 Blood pressure systolic 118 mm Hg 10/12/2024 Weight 122 lbs 10/12/2024 BMI 21.61 kg/m2 10/12/2024 Encounters Encounter Location Date Provider Diagnosis [facility] [address] [address] 05/17/2024 Chau Besson [facility] [address] [address] 05/20/2024 Chau Besson [facility] [address] [address] 10/13/2024 Chau Besson [facility] [address] [address] 10/22/2024 Chau Besson [facility] [address] [address] 02/09/2025 Chau Besson [facility] [place] [address] [address] 02/28/2025 Chau Besson Depression with anxiety F41.[address] [address] 03/17/2025 Chau Besson [address] [address] 10/12/2024 Chau Durham Hypertension I10 ; Hypothyroidism E03.9 ; Pre-syncope R55 ; Asthma, unspecified asthma severity, unspecified whether complicated, unspecified whether persistent J45.909 ; Seasonal allergies J30.2 ; Encounter for immunization Z23 and Healthcare maintenance Z00.[address] [address] 05/27/2024 Chau Durham Vitamin B12 deficien cy E53.8 ; Hypertension I10 ; Osteopenia determined by x-ray M85.80 ; Thyroid nodule E04.1 ; Hyperlipemia, idiopathic familial E78.5 ; Type 2 diabetes mellitus with other specified complication E11.69 ; Hyperlipidemia, unspecified E78.5 ; Arthritis of right knee M17.11 ; Routine medical exam Z00.00 and Encounter for immunization Z23 [address] [address] 04/20/2024 Chau [place] Immunization(s) administered [address] [address] 10/08/2024 Chau Besalka Encounter for immunization Z23 [facility] [address] [facility] [address] [place] [address] 10/23/2024 Provider Migration Assessments Encounter Date Diagnosis (ICD Code) Assessment Notes Treatment Notes Treatment Clinical Notes Section Notes 10/12/2024 Hypothyroidism (ICD-10 - E03.9) TSH low on labs in May, will recheck today and adjust levothyroxine accordingly. 10/12/2024 Hypertension (ICD-10 - I10) Will stop losartan-hctz and start amlodipine due to syncopal episode and concern for orthostatic component. Excellent BP control in office today. 02/28/2025 Depression with anxiety (ICD-10 - F41.8) 04/20/2024 Immunization(s) administered (ICD-10 - Z23) 10/08/2024 Encounter for immunization (ICD-10 - Z23) 05/27/2024 Vitamin B12 deficiency (ICD-10 - E53.8) Check vitamin B12 levels given history of deficiency. Please note I will review all labs personally 05/27/2024 Hypertension (ICD-10 - I10) Blood pressure under good control 05/27/2024 Osteopenia determined by x-ray (ICD-10 - M85.80) Check vitamin D levels today 10/12/2024 Pre-syncope (ICD-10 - R55) Likely orthostatic vs vasovagal due to standing from laying position too quickly. No LOC, hit head, convulsions, read flag symptoms. Witnessed. Counseled on increasing fluid intake and sitting on edge of bed for about 5 minute before standing. Stop losartan-hctz. 10/12/2024 Asthma, unspecified asthma severity, unspecified whether complicated, unspecified whether persistent (ICD-10 - J45.909) Continue symbicort, start prn albuterol inhaler for wheezing or SOA. 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 I will follow personally 10/12/2024 Seasonal allergies (ICD-10 - J30.2) start flonase, zyrtec daily. counseled to avoid benadryl due to fall risk 10/12/2024 Encounter for immunization (ICD-10 - Z23) 05/27/2024 Type 2 diabetes mellitus with other specified complication (ICD-10 - E11.69) A1c previous under good control, no changes in plan at this point. Check labs 05/27/2024 Hyperlipidemia, unspecified (ICD-10 - E78.5) 10/12/2024 Healthcare maintenance (ICD-10 - Z00.00) Tdap given today. Will order TSH and BMP. Aged out of cancer screenings Non-smoker. Mammograms up-to-date, previous DEXA scan reviewed. Children are healthcare surrogate. Depression screening negative. HRA reviewed, 09/20 word recall 05/27/2024 Arthritis of right knee (ICD-10 - [...] D 01/27/2009 N-CBC with diff 04/29/2013 C-CBC 01/08/2013 C-CBC 07/05/2011 C-CBC 12/28/2013 C-CMP 12/28/2013 C-CMP 07/05/2011 C-CMP 01/08/2013 C-LIPID PANEL 01/08/2013 C-LIPID PANEL [...] End Date [place] [address] [place] [address] [id number] Indira Pitt Self - patient is the insured [employer] [address] [place] [address] [id number] Indira Pitt Self - patient is the insured [employer] [place] [address] [place] [address] [address] [place] [address] [facility] Indira Pitt Self - patient is the insured Medications Administered Medication Instructions Date of Administration Dosage Notes Cyanocobalamin/B-12 Pt's Own Medication 03/25/2014 Cyanocobalamin/B-12 Pt's Own Medication 04/26/2014 Cyanocobalamin/B-12 Pt's Own Medication 04/19/2016 1 mL Cyanocobalamin/B-12 Pt's Own Medication 06/16/2017 Cyanocobalamin/B-12 Pt's Own Medication 06/24/2017 Cyanocobalamin/B-12 Pt's Own Medication 07/03/2018 1 mL pt supply Cyanocobalamin/B-12 Pt's Own Medication 04/06/2019 1 mL Cyanocobalamin/B-12 Pt's Own Medication 03/14/2021 1 mL Cyanocobalamin/B-12 Pt's Own Medication 05/09/2021 1 mL Kenalog 09/21/2013 1 Kenalog 11/11/2013 1 mL Kenalog 40mg 02/11/2017 40 mg Kenalog 40mg 11/21/2016 40 mg Cyanocobalamin/B-12 Pt's Own Medication 10/08/2021 1 mL Cyanocobalamin/B-12 Pt's Own Medication 08/15/2021 1 mL Cyanocobalamin/B-12 Pt's Own Medication 08/01/2021 1 mL Cyanocobalamin/B-12 Pt's Own Medication 06/22/2021 1 mL Cyanocobalamin/B-12 Pt's Own Medication 06/06/2021 1 mL Cyanocobalamin/B-12 Pt's Own Medication 04/27/2021 1 mL Cyanocobalamin/B-12 Pt's Own Medication 04/16/2021 1 mL Cyanocobalamin/B-12 Pt's Own Medication 04/03/2021 1 mL Cyanocobalamin/B-12 Pt's Own Medication 03/30/2021 1 mL Cyanocobalamin/B-12 Pt's Own Medication 03/19/2021 1 mL Cyanocobalamin/B-12 Pt's Own Medication 11/23/2018 [...] 07/07/2017 1 mL Cyanocobalamin/B-12 Pt's Own Medication 06/06/2017 1 mL [...] Allergy Injection 11/09/2018 Kenalog 06/08/2015 1 mL Cyanocobalamin/B-12 Pt's Own Medication 07/25/2021 1 mL Medical (General) History Medical History [...]
--- OUTSIDE RECORDS SUMMARY | 2025-03-18 10:41 | XMS_ITS | Clinical Summary ---
Author Organization [facility] Address [address] [facility] [address] [place] [phone] Phone Care Team Providers Care Clipper And Turner Name Role Phone Unavailable Primary Care Provider [...]
[2025-03-18 11:19] LABS: Hematocrit 31.9 % (37.0-47.0); Hemoglobin 10.5 g/dL (12.2-16.2); Immature Granulocytes % 1.0 %; Mean Corpuscular HGB Conc 32.9 g/dL (31.8-35.4); Mean Corpuscular Hemoglobin 32.7 pg (27.0-31.2); Mean Corpuscular Volume 99.4 fl (81-99); Nucleated Red Blood Cells % 0 %; Platelet Count 234 K/mm3 (142-424); Red Blood Count 3.21 M/mm3 (4.20-5.40); Red Cell Distribution Width-SD 45.7 fL; White Blood Count 6.9 K/mm3 (4.8-10.8)
[2025-03-18 11:50] LABS: Albumin Level 4.4 g/dl (3.5-5.0); Chloride 101 mmol/L (98-107); Potassium 4.1 mmoL/L (3.5-5.1); Sodium 132 mmol/L (136-145)
[2025-03-18 11:52] LABS: Alanine Aminotransferase 14 U/L (12-78); Anion Gap 11.1 mEq/L (5-15); Aspartate Amino Transferase 28 U/L (14-36); Bilirubin,Unconjugated 0.9 mg/dL (0.0-1.1); Blood Urea Nitrogen 12 mg/dl (7-17); Carbon Dioxide 24 mmol/L (22.0-30.0); Creatinine,Serum 0.70 mg/dl (0.52-1.04); Estimated Glomerular Filt Rate 81 ml/min (>60); GFR (African American) 98 ML/MIN (>60); Total Protein,Serum 6.6 g/dl (6.3-8.2)
[2025-03-18 11:53] LABS: Alkaline Phosphatase 78 U/L (38-126); Bilirubin,Direct 0.0 mg/dl (0.0-0.4); Bilirubin,Indirect 0.9 mg/dL (0.0-0.9); Bilirubin,Total 0.9 mg/dl (0.2-1.3); Calcium 9.4 mg/dl (8.4-10.2); Cholesterol 144 mg/dl (140-200); Glucose 89 mg/dl (74-100); HDL Cholesterol 75 mg/dl (40-60); Magnesium 1.4 mg/dl (1.6-2.3); Triglycerides 114 mg/dl (30-150)
[2025-03-18 12:12] LABS: Free T4 (Free Thyroxine) 0.86 ng/dl (0.78-2.19)
[2025-03-18 12:26] LABS: Thyroid Stimulating Hormone 12.00 uIU/mL (0.465-4.68)
== END 2025-03-18 23:59 | disposition home or self-care (01) ==
LOC: LAB 10:37
PROVIDERS: PCP Internal Medicine Adolescent Medicine; Visit Provider Nurse Practitioner Family
DX: I11.9 Hypertensive heart disease without heart failure (principal); I25.10 Atherosclerotic heart disease of native coronary artery without angina pectoris; K21.9 Gastro-esophageal reflux disease without esophagitis; E78.2 Mixed hyperlipidemia; I34.1 Nonrheumatic mitral (valve) prolapse; I65.21 Occlusion and stenosis of right carotid artery
CPT/HCPCS: 36415; 80048; 80061; 80076; 83735; 84439; 84443; 85025

== ENCOUNTER 2025-06-28 08:13 | Day surgery (SDC) | payer MEDICARE, OTHER, SELFPAY ==
[2025-06-28 08:17] VITALS: BP 140/74; PULSE 63; RESP 16; O2SAT 98; BMI 21.6
[2025-06-28 08:38] VITALS: BP 159/87; PULSE 71; RESP 18; O2SAT 100
[2025-06-28] MEDS: LIDOCAINE 1% 5ML PF VIAL 5 ML (08:41)
[2025-06-28] MEDS: BUPIVACAINE 0.25% 10ML INJ 25 MG IJ (08:41)
[2025-06-28] MEDS: DEXAMETHASONE 10MG/ML 1ML VIAL 10 MG (08:42)
[2025-06-28 08:43] VITALS: BP 159/87; PULSE 71; RESP 18; O2SAT 100
[2025-06-28 08:48] VITALS: BP 156/86; PULSE 68; RESP 16; O2SAT 98
--- NOTE | 2025-06-28 09:14 | P.PCN_ITS ---
Procedure Date: 06/28/25 Time: 08:45 Anesthesiologist:: Kit Richardson CRNA Complications:: None Pre-procedure Diagnosis:: Bilateral sacroiliitis Post-procedure Diagnosis:: Same Indications for Procedure:: Patient is a pleasant 72-year-old female who comes to clinic today for repeat bi lateral sacroiliac joint injections cortisone local anesthetic. Patient reports significant improvement terms of her symptoms with previous sacroiliac joint injections. She describes low lumbar back pain off midline bilaterally. Bilateral posterior hip pain. Difficulty transitioning from sitting to standing. Difficulty with ambulation. She rates her pain 7/10. Procedure Details:: Procedure: Bilateral sacroiliac joint injections under fluoroscopy Informed consent was obtained and the risks and benefits of the procedure were explained to the patient.~ The patient was taken to the procedure room and noninvasive monitors were placed including a noninvasive blood pressure cuff and pulse oximeter.~ The patient was placed prone on the procedure table. Both hips were cleansed using Betadine as a cleansing solution. C-arm fluoroscopy was used to view the right sacroiliac joint.~ The skin and subcutaneous tissues were anesthetized using lidocaine 1.5% and a 25-gauge needle.~ After this, a 22-gauge spinal needle was inserted under fluoroscopic guidance into the inferior aspect of the right sacroiliac joint.~ Omnipaque dye was injected and good spread was seen throughout the joint.~ After this, approximately 5 mL of bupivacaine, 0.25% and dexamethasone 5 mg was incrementally injected into the right sacroiliac joint. We then moved to the left sacroiliac joint.~ The skin and subcutaneous tissues were anesthetized using lidocaine 1.5% and a 25-gauge needle.~ After this, a 22- gauge spinal needle was inserted under fluoroscopic guidance into the inferior aspect of the left sacroiliac joint.~ Omnipaque dye was injected and good spread was seen throughout the joint. After this, approximately 5 mL of bupivacaine, 0.25% and dexamethasone 5 mg was incrementally injected into the left sacroiliac joint.~ The patient tolerated the procedure well with no complications. The patient was observed in the Pain Clinic and then was discharged home neurologically intact. Plan and Disposition:: Patient was discharged without incident.
== END 2025-06-28 08:48 | disposition home or self-care (01) ==
LOC: SC.PAINP 08:15
PROVIDERS: PCP Family Medicine; Visit Provider Nurse Anesthetist, Certified Registered
DX: M46.1 Sacroiliitis, not elsewhere classified (principal); I25.119 Atherosclerotic heart disease of native coronary artery with unspecified angina pectoris; I10 Essential (primary) hypertension; E78.5 Hyperlipidemia, unspecified; I08.0 Rheumatic disorders of both mitral and aortic valves; I65.29 Occlusion and stenosis of unspecified carotid artery; J44.9 Chronic obstructive pulmonary disease, unspecified; K21.9 Gastro-esophageal reflux disease without esophagitis
CPT/HCPCS: G0260; J0665; J1100; J2003